=== PATIENT | male | born 1950 | race Caucasian/White ===

== ENCOUNTER 2019-07-23 15:56 | Observation (INO) | payer MEDICARE, OTHER, SELFPAY ==
[2019-07-23] VITALS (14 sets, daily range): BP systolic 135–178; BP diastolic 72–138; PULSE 68–126; RESP 13–30; TEMP 36.3–36.7; O2SAT 99–100; BMI 38.7
--- NOTE | ~2019-07-23 | XR_ITS ---
EXAMINATION: XR chest 2V EXAM DATE: 07/23/2019 16:27 INDICATION: Mid chest pain, shortness of breath, dizziness. TECHNIQUE: Frontal and lateral projections of the chest obtained and reviewed. There is no prior tawana dy for comparison. FINDINGS: Sternotomy wires are present without findings to suggest sternal dehiscence. Cervical fusi on hardware. There are cholecystectomy clips. No confluent consolidation, pneumothorax or pleural ef fusion suspected. There are no osseous abnormalities identified. There is aortic arterial sclerosis. IMPRESSION: No acute cardiopulmonary findings. Reviewed, dictated and finalized at location B. ER RACKER
--- NOTE | 2019-07-23 16:06 | ECG_ITS ---
Measurements Intervals Christine Rate: 103 P: 4 NJ: 177 QRS: -37 QRSD: 105 T: 95 QT: 370 QTc: 486 Interpretive Statements SINUS TACHYCARDIA FREQUENT VENTRICULAR PREMATURE COMPLEXES LEFT AXIS DEVIATION BORDERLINE R WAVE PROGRESSION, ANTERIOR LEADS NONSPECIFIC ST & T-WAVE ABNORMALITY- DIFFUSE LEADS BASELINE ARTIFACT- V1-V2 ABNORMAL ECG Electronically Signed On 07-23-2019 16:40:33 [employer]' by Gagandeep Barrera D.O.
[2019-07-23] MEDS: ASPIRIN 81 MG CHEWABLE TABLET 324 MG PO (16:14)
[2019-07-23 16:16] LABS: Basophils Percent Auto 0.5 % (0.2-1.2); Eosinophils Absolute Auto 0.3 K/mm3 (0-0.3); Eosinophils Percent Auto 3.8 % (0-4.4); Hematocrit 41.4 % (42.0-52.0); Hemoglobin 13.1 g/dL (14.0-18.0); Immature Granulocyte Absolute 0.02 K/mm3 (0.00-0.031); Immature Granulocyte Percent A 0.2 % (0-0.5); Lymphocytes Absolute Auto 3.09 K/mm3 (0.9-3.2); Lymphocytes Percent Auto 37.7 % (18.3-44.2); Mean Corpuscular HGB Conc 31.6 g/dl (32-36); Mean Corpuscular Hemoglobin 29.4 pg (26-34); Mean Corpuscular Volume 92.8 fl (80-100); Mean Platelet Volume 11.9 fl (7.4-10.4); Monocytes Absolute Auto 0.6 K/mm3 (0.1-0.6); Monocytes Percent Auto 7.6 % (2.6-8.5); Neutrophils Absolute Auto 4.1 K/mm3 (1.3-6.7); Neutrophils Percent Auto 50.2 % (45.5-73.1); Platelet Count Result 211 k/mm3 (150-375); Red Blood Count 4.46 M/mm3 (4.6-6.20); Red Cell Distribution Width 13.5 % (11.5-14.5); White Blood Count 8.2 K/mm3 (4.5-10.0)
[2019-07-23 16:30] LABS: Blood Urea Nitrogen 15 mg/dL (9-20); Calcium 9.1 mg/dL (8.4-10.2); Carbon Dioxide 28 mmol/L (22-30); Chloride 97 mmol/L (98-107); Estimated Glomerular Filt Rate > 60; Glucose 253 mg/dL (75-110); Potassium 4.4 mmol/L (3.4-5.0); Sodium 138 mmol/L (137-145)
--- NOTE | 2019-07-23 16:34 | ED.ARRPALP ---
HPI - Arrhythmia/Palpitations General Chief Complaint: Arrhythmia/Palpitations Stated Complaint: dizzy Time Seen by Provider: 07/23/19 16:32 Source: patient, family and RN notes reviewed Mode of arrival: other Limitations: no limitations History of Present Illness HPI narrative: Pt is a 69 y/o male who presents to the ED, from his PCP's office, with c/o arrhythmia. He notes that he felt dizzy and he went to his PCP today. Per pt, PCP states the pt's heart was skipping beats and that his PCP heard an arrhythmia. Pt notes that his dizziness began two weeks ago, but he told his spouse about his sx on Tuesday (07/21/19). Pt describes his dizziness as lightheadedness and the room is spinning. Pt denies syncope or near syncope. Pt notes that he took his HTN medication late on Tuesday (07/21/19). He notes that he wanted to check his blood pressure because he felt strange. He notes that he was feeling something that has not been there. Pt is unable to further describe his sx. He notes that his sx feel similar to whenever he had to have a CABG. Pt also reports intermittent chest pain that began 6 months ago. He notes that his chest pain comes every few days and lasts until he takes a NTG which relieves his chest pain. He notes that his pain feels like a pressure pain. Pt's spouse notes the pt has sporadic N/V/D on Tuesday (07/21/19) which is not abnormal. Pt last seen his lockstitch sleeve maker in February 2019, but he stopped going because the physician would not look him in the eye. Pt's spouse states the pt would see a lockstitch sleeve maker in [facility], but the drive was getting too far for them. Pt also reports CP, SOB, and diaphoresis, but denies vision changes, weakness in his BLE, and numbness in his BLE. complaint: skipped beats Onset (ago): hour(s) Duration: constant Associated symptoms: chest pain, shortness of breath, nausea, vomiting, diaphoresis and other (diarrhea, dizziness, lightheadedness) Related Data Home Medications Medication Instructions Recorded Confirmed atorvastatin 40 mg PO DAILY 05/23/19 07/23/19 duloxetine 60 mg PO DAILY 05/23/19 07/23/19 losartan 100 mg PO DAILY 05/23/19 07/23/19 metformin 1,000 mg PO BID 05/23/19 07/23/19 metoprolol tartrate 75 mg PO DAILY 05/23/19 07/23/19 omeprazole 20 mg PO DAILY 05/23/19 07/23/19 oxybutynin chloride 10 mg PO DAILY 05/23/19 07/23/19 ropinirole 1 mg PO DAILY 05/23/19 07/23/19 tamsulosin 0.4 mg PO DAILY 05/23/19 07/23/19 cholecalciferol (vitamin D3) 5,000 unit PO DAILY 07/23/19 07/23/19 [Vitamin D3] crfksobr-saa-QA-lycopen-lutein 1 tablet PO DAILY 07/23/19 07/23/19 [Centrum Silver Men] omega 4-vgx-myz-fish oil [Fish Oil] 1,000 cap PO DAILY 07/23/19 07/23/19 vitamin B complex [B 1 tablet PO DAILY 07/23/19 07/23/19 Complex-Vitamin B12] Allergies Allergy/AdvReac Type Severity Reaction Status Date / Time amoxicillin Allergy Unknown RASH Verified 07/23/19 16:04 perflutren [From Definity] Allergy Back Pain Verified 07/23/19 16:18 Review of Systems Review of Systems: All systems reviewed & are unremarkable except as noted in HPI and below Eyes: Eyes: Denies change in vision Cardiovascular: Cardiovascular: Reports chest pain (intermittent), Reports diaphoresis, Reports irregular heart rhythm and Reports lightheadedness Respiratory: Respiratory: Reports dyspnea Gastrointestinal: Gastrointestinal: Reports diarrhea, Reports nausea and Reports vomiting Neurologic: Denies numbness (BLE) and Denies weakness (BLE) [facility] Past Medical History Medical History (Updated 07/23/19 @ 17:52 by Patricia Khan MD) Ankle fracture CAD (coronary artery disease) CHF (congestive heart failure) Diabetes type 2, controlled HTN (hypertension) Hyperlipidemia MICA (obstructive sleep apnea) CPAP Surgical History Surgical History (Updated 07/23/19 @ 17:06 by Tosin Langford) History of ankle surgery Hx of CABG x2 vessel, 2013 Hx of cholecystectomy Family History Family History (Updated
[2019-07-23 16:36] LABS: INR 0.9
[2019-07-23 16:37] LABS: Partial Thromboplastin Time 26.9 SECONDS (22.3-36.8); Troponin I < 0.012 ng/mL (0.000-0.034)
[2019-07-23 18:03] LABS: Magnesium 2.1 mg/dL (1.6-2.3)
[2019-07-23 18:05] LABS: Glucose Point of Care 231 (65-105)
[2019-07-23 19:28] LABS: Troponin I < 0.012 ng/mL (0.000-0.034)
--- NOTE | 2019-07-23 19:47 | ADMGEN ---
This patient, Robert Lawler Jr., was admitted to IMU Room 209-01 @ 1856. VSS- monitor SR 80's - denies any c/o pain Patient/family oriented to hospital policies and general routines including ID bracelet, bed and alarms, visiting hours, pain management, procedures, bathroom and other care routines, personal items, smoking policy, room service/diet, and visiting hours. Valuables list has been completed. Information on how to activate the Rapid Response Team has been discussed. Patient/Family are encouraged to report perceived risks to care and to ask questions if they do not understand what they are told or what they should do.
[2019-07-23 20:13] LABS: Glucose Point of Care 161 (65-105)
--- NOTE | 2019-07-23 21:00 | PM.IMHP ---
H&P: HPI History of Present Illness Chief complaint: chest pain Narrative: Robert Lawler Jr. is a 69 year old male with coronary artery disease, hypertension, hyperlipidemia, sleep apnea, and type 2 diabetes mellitus who presented to the emergency department earlier this afternoon via private vehicle for evaluation of dizziness and palpitations. For nearly 2 weeks time he has had intermittent episodes of dizziness, occasionally feeling as though things are spinning but other times he feels lightheaded. He does seem to happen more often with position changes or not long after standing up to walk. He has checked his blood pressure, and has not noticed any low readings, and fact it has been as high as 189/93 at home. He has been having occasional palpitations and will randomly have sweats. With further questioning, he notes an increase in anginal symptoms, using his nitroglycerin much more frequently over the past couple of weeks. His last stress test was in February 2019 done at [facility], apparently that was performed after non STEMI. He followed up with Dr. Riddle but the patient did not feel that they had a good connection, and he does not wish to see him again. He saw his doctor in the clinic today for evaluation of the above, was told that his ?heart was skipping beats? he was referred to the emergency department. Currently he has no significant complaints. He also denies fever, chills, and sweats. No headache. No focal weakness or paresthesias. Review of Systems Review of Systems: Narrative: Twelve systems are reviewed with pertinent positives and negatives as per HPI. No fever or chills. No recent cold or flu symptoms. He has been having intermittent issues with nausea, vomiting, and diarrhea that seemed to last 3 or 4 days at a time before resolving, however the cycle repeats itself quite often. He is followed by Dr. Yeager as an outpatient, and apparently had an unremarkable EGD in May 2019. It sounds as though gastric emptying study has been ordered for further evaluation. Except as documented, all other systems reviewed and are negative. [facility] Past Medical History Medical History (Updated 07/24/19 @ 02:38 by Camila Culp PA-C) Ankle fracture Benign colon polyp Coronary artery disease Status post 2 vessel CABG in 2012. CVA (cerebral vascular accident) Reported CVA in January 2019 for which he was hospitalized at [facility]. Diverticulosis History of shingles Hyperlipidemia Hypertension Obstructive sleep apnea on CPAP Type 2 diabetes mellitus Hemoglobin A1c was 7.5 in May 2019. Surgical History Surgical History (Updated 07/24/19 @ 02:30 by Camila Culp PA-C) History of ankle surgery Status post cholecystectomy Status post coronary artery bypass graft 2 vessel bypass in 2012. Status post tonsillectomy Family History Family History Father Heart attack Mother Cancer Sibling COPD (chronic obstructive pulmonary disease) Heart attack Cancer Social History Social History (Updated 07/24/19 @ 02:30 by Camila Culp PA-C) Social History: The patient lives in [place] with his . He designates his as his surrogate decision maker and he wishes to be a full code. He is a lifelong nonsmoker and denies alcohol and drug use. Spiritual care concerns: No Agree to blood products: Yes Meds Home Medications and Allergies Home Medications Medication Instructions Recorded Confirmed Type atorvastatin 40 mg PO DAILY 05/23/19 07/23/19 History duloxetine 60 mg PO DAILY 05/23/19 07/23/19 History losartan 100 mg PO DAILY 05/23/19 07/23/19 History metformin 1,000 mg PO BID 05/23/19 07/23/19 History metoprolol tartrate 75 mg PO DAILY 05/23/19 07/23/19 History omeprazole 20 mg PO DAILY 05/23/19 07/23/19 History oxybutynin chloride 10 mg PO DAILY 05/23/19 07/23/19 History
[2019-07-23 22:28] LABS: Troponin I < 0.012 ng/mL (0.000-0.034)
[2019-07-24] VITALS (11 sets, daily range): BP systolic 120–175; BP diastolic 50–72; PULSE 66–90; RESP 15–20; TEMP 36.6–36.7; O2SAT 97–99
--- NOTE | 2019-07-24 10:01 | PM.IMPN ---
Progress Note: A&P Assessment and Plan (1) Chest pain: Qualifiers: Chest pain type: unspecified Qualified Code(s): R07.9 - Chest pain, unspecified Code(s): R07.9 - Chest pain, unspecified Status: Acute Assessment and Plan: Discharged. See discharge summary. Trop negative x3 without EKG changes. Follow up with Dr Rocha for outpatient Lexiscan. Subjective Date/time seen: 07/24/19 0930 Interval history: Mr. Lawler is a 69yo M admitted for chest pain. He notes intermittent substernal chest pain on and off, now occurring most days out of the week for the last few weeks. He does feel sweaty with these episodes and a bit short of breath, pain does not radiate to arm or jaw. Pain is resolved with nitroglycerin but he notes if he does not take the nitro, the pain could last all day . He is not having any chest pain this morning and denies shortness of breath at rest. Tolerating breakfast without nausea or vomiting. No calf tenderness. H/O CABG at [place] 2012; followed with Dr Riddle in the past but does not wish to follow with him any longer and wishes to establish care elsewhere. Patient believes last cath was Feb 2019. He saw PCP for his symptoms yesterday who instructed him to present to ER. He is quite concerned about his PVCs and I discussed these with him. Discussed he may be suitable for discharge later today pending cardiology consult unless cardiology plans for further testing inpatient. Objective Data Vital Signs Vital Signs: Vital Signs - 24 hr 07/23/19 16:00 07/23/19 16:04 07/23/19 16:05 Temperature 97.7 F Pulse Rate 108 H 123 H 126 H Respiratory Rate 17 30 H 13 Blood Pressure 150/126 H 154/138 H 150/126 H Pulse Oximetry 100 100 99 07/23/19 16:09 07/23/19 17:15 07/23/19 17:30 Temperature Pulse Rate 101 H 95 88 Respiratory Rate 19 13 14 Blood Pressure 178/87 H Pulse Oximetry 99 99 100 07/23/19 18:01 07/23/19 18:16 07/23/19 18:30 Temperature Pulse Rate 83 83 93 Respiratory Rate 21 H 13 21 H Blood Pressure 145/92 H 156/72 H 156/72 H Pulse Oximetry 100 100 100 07/23/19 19:00 07/23/19 19:40 07/23/19 20:00 Temperature 97.3 F L Pulse Rate 99 99 88 Respiratory Rate 20 Blood Pressure 152/76 H Pulse Oximetry 100 07/23/19 22:00 07/23/19 23:55 07/24/19 00:00 Temperature 98.0 F Pulse Rate 68 87 79 Respiratory Rate 20 Blood Pressure 135/73 Pulse Oximetry 99 07/24/19 01:30 07/24/19 02:00 07/24/19 04:00 Temperature 98.0 F Pulse Rate 88 79 84 Respiratory Rate 15 20 Blood Pressure 120/50 L Pulse Oximetry 97 97 07/24/19 06:00 07/24/19 07:03 Temperature 98.0 F Pulse Rate 66 76 Respiratory Rate 18 Blood Pressure 146/65 H Pulse Oximetry 99 Intake/Output Intake/Output: Intake & Output 07/21/19 07/22/19 07/23/19 07/24/19 23:59 23:59 23:59 23:59 Intake Total 300 Balance 300 Meds/Results Medications: Active Medications Generic Name Dose Route Start Last Admin Trade Name Freq PRN Reason Stop Dose Admin Aspirin 81 mg 07/24/19 08:00 Aspirin Chewable PO DAILY@0800 [facility] Atorvastatin Calcium 40 mg 07/24/19 09:00 Lipitor PO DAILY [facility] Dextrose 12.5 gm 07/24/19 02:40 Dextrose 50% Syringe IV PUSH PRN PRN Hypoglycemia Protocol Duloxetine HCl 60 mg 07/24/19 09:00 Cymbalta PO DAILY [facility] Fish Oil 1 gm 07/24/19 09:00 Lovaza PO DAILY [facility] Glucagon 1 mg 07/24/19 02:40 Glucagon For Inj IM PRN PRN Hypoglycemia Protocol Glucose 15 gm 07/24/19 02:40 Glutose 15 PO PRN PRN Hypoglycemia Protocol Dextrose 1,000 mls @ 100 mls/hr 07/24/19 02:40 Dextrose 5% 1,000 Ml IVPB PRN PRN Hypoglycemia Protocol Insulin Aspart 4 - 8 units 07/24/19 08:00 Novolog SUB-Q TIDWM [facility] Protocol Losartan Potassium 100 mg 07/24/19 09:00 Cozaar PO DAILY [facility] Metoprolol Tartrate 75 mg
[2019-07-24] MEDS: VITAMIN B COMPLEX CAPSULE 1 CAP PO (10:25)
[2019-07-24] MEDS: ASPIRIN 81 MG CHEWABLE TABLET PO (10:25)
[2019-07-24] MEDS: METOPROLOL TARTRATE 25 MG TABLET 75 MG PO (10:25)
[2019-07-24] MEDS: CHOLECALCIFEROL 1,000 UNIT TABLET 5000 UNITS PO (10:25)
[2019-07-24] MEDS: DULOXETINE 60 MG CAPSULE.DR PO (10:25)
[2019-07-24] MEDS: LOSARTAN POTASSIUM 100 MG TABLET PO (10:26)
[2019-07-24] MEDS: PANTOPRAZOLE 40 MG TABLET PO (10:26)
[2019-07-24] MEDS: OMEGA 3 POLYUNSAT FATTY ACIDS 1 GM CAP PO (10:26)
[2019-07-24] MEDS: TAMSULOSIN HCL 0.4 MG CAPSULE PO (10:26)
[2019-07-24] MEDS: ATORVASTATIN 20 MG TABLET 40 MG PO (10:27)
[2019-07-24] MEDS: INSULIN ASPART (*BKC) 100 UNITS/ML SUB-Q (10:33)
[2019-07-24 10:40] LABS: Glucose Point of Care 283 (65-105)
[2019-07-24] MEDS: OPTI-GEN TAB 1 TABLET PO (12:54)
--- NOTE | 2019-07-24 14:04 | PM.CNCAR ---
Assessment and Plan Assessment and plan (1) Chest pain: Qualifiers: Chest pain type: unspecified Qualified Code(s): R07.9 - Chest pain, unspecified Code(s): R07.9 - Chest pain, unspecified Status: Acute Assessment and Plan: Stable angina resolved with nitroglycerin prior to admission. Ruled out for myocardial infarction with serial cardiac enzymes without new ischemic changes by EKG. History of CAD 2 vessel bypass FLORIAN to LAD and left radial arterial graft to PDA 2012. Discussed inpatient versus outpatient ischemic evaluation. Patient prefers to be discharged home to follow up with the Lexiscan nuclear stress test soon. Patient will follow up with me in the office in 2-4 weeks. Will add isosorbide mononitrate 30 mg daily for additional antianginal control. Monitor headache, dizziness, blood pressure. Ambulate with caution. Notify office with any concerns or questions. Patient stable and asymptomatic at this time. Disposition per hospitalist service. Should he have recurrent chest pain prior to discharge he will remain in-house for ischemic workup. Patient agrees. (2) Coronary artery disease: Code(s): I25.10 - Atherosclerotic heart disease of [place] coronary artery without angina pectoris Status: Acute Assessment and Plan: Continue aspirin, statin, beta kash, losartan. LDL 62 reasonably controlled. Further ischemic workup as outpatient with Lexiscan. Patient advised if recurrent unrelenting and/or severe chest pain to return to the emergency department via EMS immediately. Patient verbalized understanding and agreed to comply with plan of care. He would like to be discharged home to follow up as an outpatient although inpatient workup was offered as well. (3) PVCs (premature ventricular contractions): Code(s): I49.3 - Ventricular premature depolarization Status: Acute Assessment and Plan: Occasional, asymptomatic since hospitalization. Increase metoprolol tartrate to 75 mg b.i.d. as he was only taking this in the evening. Denies any problem in the past states he did abdoulaye as directed. We will do this not only for PVCs but predominantly for antianginal benefit. (4) Palpitations: Code(s): R00.2 - Palpitations Status: Acute Assessment and Plan: As above. (5) Type 2 diabetes mellitus: Code(s): E11.9 - Type 2 diabetes mellitus without complications Status: Acute Assessment and Plan: Per primary service. (6) Hypertension: Code(s): I10 - Essential (primary) hypertension Status: Acute Assessment and Plan: Reasonably controlled. Changes as above. Continue medical therapy aside from that noted above. (7) Obstructive sleep apnea on CPAP: Code(s): G47.33 - Obstructive sleep apnea (adult) (pediatric); Z99.89 - Dependence on other enabling machines and devices Status: Acute Assessment and Plan: Compliance with CPAP. (8) Dizziness: Code(s): R42 - Dizziness and giddiness Status: Acute Assessment and Plan: Monitor symptoms and ambulate with caution. Call w/ recurrence or new concerns. No history of near-syncope, syncope or falls. History of Present Illness History of Present Illness Consult date/time: Date of service: 07/24/19 14:04 This is a cardiology consultation at the request of Dr. Lucio for our opinion regarding progressive angina with history of CAD. Requesting physician: Nguyen Mtz MD Consult reason: chest pain Reason For Visit: chest pain Narrative: Patient is a very pleasant 69-year-old male with a past medical history significant for hypertension, diabetes mellitus, dyslipidemia, obesity, obstructive sleep apnea on CPAP, and CAD with history of severe 2 vessel coronary disease with 95% RCA stenosis, moderate left main disease and 65% sequential lesions in the LAD who underwent 2 vessel CABG with FLORIAN to LAD and left radial arterial gra
[2019-07-24 14:51] LABS: Glucose Point of Care 213 (65-105)
--- NOTE | 2019-07-24 19:22 | PM.DS ---
DS: Diagnosis Admitting Diagnosis Admitting Diagnosis: Chest pain, unspecified Discharge Diagnosis (1) Chest pain: Qualifiers: Chest pain type: unspecified Qualified Code(s): R07.9 - Chest pain, unspecified Code(s): R07.9 - Chest pain, unspecified Status: Acute Assessment and Plan: Date of Service 07/24/19 Mr. Lawler is a 69yo M with history of coronary artery disease s/p CABG in 2012, hypertension, and type 2 diabetes mellitus who presented to the ED at the instruction of his PCP for evaluation of chest pain. He notes intermittent substernal chest pain on and off, now occurring most days out of the week for the last few weeks. He does feel sweaty with these episodes and a bit short of breath, pain does not radiate to arm or jaw. Pain is resolved with nitroglycerin but he notes if he does not take the nitro, the pain could last all day . Troponins negative x3 with no EKG changes. He was not having any active chest pain on day of discharge. Telemetry review showed occasional PVCs. H/O CABG at [place] 2012; followed with Dr Riddle in the past but does not wish to follow with him any longer and wishes to establish care elsewhere. Patient believes last cath was Feb 2019. He saw PCP for his symptoms yesterday who instructed him to present to ER. Cardiology was consulted given his ongoing anginal symptoms and he was seen by Dr Rocha. It was felt he could benefit from Lexiscan stress testing which could be done as an outpatient. He was also started on Imdur. He was instructed to continue taking his nitroglycerin as needed and instructed return to the ER if he experienced chest pain not relieved by nitro. He was provided with a follow up appointment for cardiology in addition to a scheduled outpatient Lexiscan. He was feeling well and hemodynamically stable for discharge 07/24/19 with cardiology follow up instructions and instructed to follow up with PCP as well. Consultations: Cardiology, Dr Rocha (2) PVCs (premature ventricular contractions): Code(s): I49.3 - Ventricular premature depolarization Status: Acute Assessment and Plan: Noted on telemetry, patient does report palpitations. (3) Coronary artery disease: Qualifiers: Coronary Disease-Associated Artery/Lesion type: bypass graft [place] vs. transplanted heart: [place] heart Associated angina: with unspecified angina Qualified Code(s): I25.709 - Atherosclerosis of coronary artery bypass graft(s), unspecified, with unspecified angina pectoris Code(s): I25.10 - Atherosclerotic heart disease of [place] coronary artery without angina pectoris Status: Acute Assessment and Plan: h/o CABG 2012 and last heart cath he believes in Feb [address] Riddle. He wishes to establish care with [facility] and he will follow up with Dr Rocha in a few weeks. (4) Type 2 diabetes mellitus: Qualifiers: Diabetes mellitus detention insulin use: without detention use Diabetes mellitus complication status: without complication Qualified Code(s): E11.9 - Type 2 diabetes mellitus without complications Code(s): E11.9 - Type 2 diabetes mellitus without complications Status: Acute Assessment and Plan: Stable, resume home metformin at discharge. (5) Hypertension: Qualifiers: Hypertension type: essential hypertension Qualified Code(s): I10 - Essential (primary) hypertension Code(s): I10 - Essential (primary) hypertension Status: Acute Assessment and Plan: Maintained on home losartan and coreg. (6) Obstructive sleep apnea on CPAP: Code(s): G47.33 - Obstructive sleep apnea (adult) (pediatric); Z99.89 - Dependence on other enabling machines and devices Status: Acute DS: Summary Time Spent with Patient Time attestation: Total time spent pr
== END 2019-07-24 19:35 | disposition home or self-care (01) ==
LOC: ANHED 17:25 → ANHIMU 17:33
PROVIDERS: Emergency Medicine; Physician Assistant; Admitting Provider Internal Medicine; Emergency Provider Emergency Medicine; Visit Provider Internal Medicine
DX: R07.9 Chest pain, unspecified (principal); I49.3 Ventricular premature depolarization; I25.709 Atherosclerosis of coronary artery bypass graft(s), unspecified, with unspecified angina pectoris; I10 Essential (primary) hypertension; E11.9 Type 2 diabetes mellitus without complications; E78.5 Hyperlipidemia, unspecified; G47.33 Obstructive sleep apnea (adult) (pediatric); Z79.84 Long term (current) use of oral hypoglycemic drugs; Z79.899 Other long term (current) drug therapy; Z86.73 Personal history of transient ischemic attack (TIA), and cerebral infarction without residual deficits; Z95.1 Presence of aortocoronary bypass graft; Z99.89 Dependence on other enabling machines and devices
CPT/HCPCS: 36415; 71046; 80048; 82948; 83735; 84443; 84484; 85025; 85610; 85730; 93005; 99285; A9270; G0378; J1815

== ENCOUNTER 2019-07-27 09:56 | Outpatient (CLI) | payer MEDICARE, OTHER, SELFPAY ==
[2019-07-27 10:55] LABS: Basophils Absolute Auto 0.1 K/mm3 (0.0-0.1); Basophils Percent Auto 0.6 % (0.2-1.2); Eosinophils Absolute Auto 0.6 K/mm3 (0-0.3); Eosinophils Percent Auto 7.1 % (0-4.4); Hematocrit 41.6 % (42.0-52.0); Hemoglobin 13.1 g/dL (14.0-18.0); Immature Granulocyte Absolute 0.03 K/mm3 (0.00-0.031); Immature Granulocyte Percent A 0.3 % (0-0.5); Lymphocytes Absolute Auto 3.63 K/mm3 (0.9-3.2); Lymphocytes Percent Auto 40.9 % (18.3-44.2); Mean Corpuscular HGB Conc 31.5 g/dl (32-36); Monocytes Absolute Auto 0.6 K/mm3 (0.1-0.6); Monocytes Percent Auto 7.2 % (2.6-8.5); Neutrophils Absolute Auto 3.9 K/mm3 (1.3-6.7); Neutrophils Percent Auto 43.9 % (45.5-73.1); Platelet Count Result 198 k/mm3 (150-375); Red Blood Count 4.52 M/mm3 (4.6-6.20); Red Cell Distribution Width 13.5 % (11.5-14.5); White Blood Count 8.9 K/mm3 (4.5-10.0)
[2019-07-27 11:05] LABS: INR 0.9; Prothrombin Time 12.1 Seconds (11.1-14.7)
[2019-07-27 11:44] LABS: Blood Urea Nitrogen 19 mg/dL (9-20); Calcium 9.4 mg/dL (8.4-10.2); Carbon Dioxide 27 mmol/L (22-30); Chloride 98 mmol/L (98-107); Estimated Glomerular Filt Rate > 60; Glucose 184 mg/dL (75-110); Potassium 4.6 mmol/L (3.4-5.0); Sodium 139 mmol/L (137-145)
== END 2019-07-27 09:57 | disposition home or self-care (01) ==
DX: E66.9 Obesity, unspecified (principal); E78.5 Hyperlipidemia, unspecified; I10 Essential (primary) hypertension; I20.0 Unstable angina; Z95.1 Presence of aortocoronary bypass graft
CPT/HCPCS: 36415; 80048; 85025; 85610

== ENCOUNTER 2019-08-09 07:36 | Outpatient (CLI) | payer MEDICARE, OTHER, SELFPAY ==
--- NOTE | ~2019-08-09 | NM_ITS ---
EXAM: NM gastric emptying study DATE: 08/09/2019 14:37 INDICATION: Nausea and vomiting. TECHNIQUE: A gastric emptying study was performed using the methodology of Shanon ORDOÑEZ, et al. J Nucl Med 2007; 48:568-572. The patient was given a meal consisting of 2 scrambled eggs labeled with 0.972 mCi Tc-99m sulfur colloid, 2 slices of toast, two packages of jam, and approximately 120 mL of water . Simultaneous anterior and posterior 1-min images of the abdomen were obtained with the patient supi ne at multiple time points over a total period of 4 hours. The geometric mean of anterior and posteri or views was determined, and the percentage retention was calculated for each time point. COMPARISON: CT abdomen and pelvis 06/30/2015 FINDINGS: Gastric retention of the radiotracer-labeled meal was 65%, 34%, and 9% at the 1-hour, 2-ho ur, and 4-hour time points, respectively. With this technique, apparent rapid gastric emptying is sug gested by <30% gastric retention at 1 hour. Delayed gastric emptying is defined by gastric retention of >90% at 1 hour, >60% retention at 2 hours, or >10% retention at 4 hours. IMPRESSION: 1. Normal gastric emptying. Reviewed, dictated and finalized at location A. INE STONECUTTER IMPRESSION: 1. Normal gastric emptying.
== END 2019-08-09 07:37 | disposition home or self-care (01) ==
LOC: ANHIMG 07:38
PROVIDERS: Visit Provider Internal Medicine Gastroenterology
DX: R11.2 Nausea with vomiting, unspecified (principal)
CPT/HCPCS: 78264; A9541

== ENCOUNTER 2020-04-25 09:19 | Outpatient (CLI) | payer MEDICARE, OTHER, SELFPAY ==
[2020-04-25 10:20] LABS: Alanine Aminotransferase 21 U/L (4-50); Albumin Level 3.7 g/dL (3.5-5.1); Alkaline Phosphatase 111 U/L (38-126); Anion Gap 3 mmol/L (8-16); Aspartate Amino Transferase 28 U/L (17-59); Bilirubin,Total 0.3 mg/dL (0.2-1.3); Blood Urea Nitrogen 13 mg/dL (9-20); Calcium 8.7 mg/dL (8.4-10.2); Carbon Dioxide 34 mmol/L (22-30); Chloride 102 mmol/L (98-107); Cholesterol 87 mg/dL (0-200); Creatine Kinase 64 U/L (55-170); Estimated Glomerular Filt Rate > 60; Glucose 166 mg/dL (75-110); HDL Direct 21 mg/dL; Magnesium 2.2 mg/dL (1.6-2.3); Potassium 4.5 mmol/L (3.4-5.0); Sodium 139 mmol/L (137-145); Triglycerides 93 mg/dL (<150)
[2020-04-25 10:31] LABS: LDL Cholesterol Direct 45 mg/dL
== END 2020-04-25 09:20 | disposition home or self-care (01) ==
PROVIDERS: PCP Family Medicine Sports Medicine; Visit Provider Internal Medicine Cardiovascular Disease
DX: I25.10 Atherosclerotic heart disease of native coronary artery without angina pectoris (principal); R00.2 Palpitations
CPT/HCPCS: 36415; 80053; 80061; 82550; 83735

== ENCOUNTER 2020-05-21 12:10 | Outpatient (CLI) | payer MEDICARE, OTHER, SELFPAY ==
[2020-05-21 13:14] LABS: Anion Gap 6 mmol/L (8-16); Blood Urea Nitrogen 15 mg/dL (9-20); Calcium 9.1 mg/dL (8.4-10.2); Carbon Dioxide 32 mmol/L (22-30); Chloride 100 mmol/L (98-107); Estimated Glomerular Filt Rate > 60; Glucose 146 mg/dL (75-110); Magnesium 2.1 mg/dL (1.6-2.3); Potassium 4.2 mmol/L (3.4-5.0); Sodium 138 mmol/L (137-145)
== END 2020-05-21 12:11 | disposition home or self-care (01) ==
LOC: ANHLAB 12:14
PROVIDERS: PCP Family Medicine Sports Medicine; Visit Provider Internal Medicine Cardiovascular Disease
DX: I10 Essential (primary) hypertension (principal); I25.10 Atherosclerotic heart disease of native coronary artery without angina pectoris; I49.3 Ventricular premature depolarization
CPT/HCPCS: 36415; 80048; 83735

== ENCOUNTER 2020-06-30 09:33 | Outpatient (CLI) | payer MEDICARE, OTHER, SELFPAY ==
[2020-06-30 10:01] LABS: Anion Gap 6 mmol/L (8-16); Blood Urea Nitrogen 15 mg/dL (9-20); Calcium 9.2 mg/dL (8.4-10.2); Carbon Dioxide 31 mmol/L (22-30); Chloride 100 mmol/L (98-107); Estimated Glomerular Filt Rate > 60; Glucose 186 mg/dL (75-110); Magnesium 1.7 mg/dL (1.6-2.3); Potassium 4.2 mmol/L (3.4-5.0); Sodium 137 mmol/L (137-145)
[2020-06-30 11:05] LABS: Alanine Aminotransferase 19 U/L (4-50); Albumin Level 4.1 g/dL (3.5-5.1); Alkaline Phosphatase 123 U/L (38-126); Aspartate Amino Transferase 25 U/L (17-59); Bilirubin,Total 0.5 mg/dL (0.2-1.3); CRP 1.2 mg/dL (<1.0)
[2020-06-30 11:25] LABS: Thyroid Stimulating Hormone 0.993 uIU/mL (0.465-4.680)
== END 2020-06-30 09:34 | disposition home or self-care (01) ==
PROVIDERS: PCP Family Medicine Sports Medicine; Visit Provider Family Medicine Sports Medicine
DX: R11.0 Nausea (principal); R19.7 Diarrhea, unspecified; R10.11 Right upper quadrant pain
CPT/HCPCS: 36415; 80048; 80053; 83735; 84443; 86140

== ENCOUNTER 2020-07-18 08:35 | Outpatient (CLI) | payer MEDICARE, OTHER, SELFPAY ==
--- NOTE | ~2020-07-18 | XR_ITS ---
XR UGIAC w small bowel DATE: 07/18/2020 12:24 INDICATION: Chronic vomiting TECHNIQUE: Air-contrast upper gastrointestinal series; serial images of the small bowel and spot imag e of the terminal ileum 1.8 minutes fluoroscopy time DAP: 229.032 COMPARISON: None FINDINGS: Status post cholecystectomy. Status post sternotomy/CABG. There is normal deglutition. There are tertiary contractions of the esophagus. There is a small sliding hiatal hernia. No stricture, mucosal fold thickening, ulceration or intraluminal mass lesion of the esophagus, stoma ch or duodenum is evident. The small bowel mucosal pattern appears normal. Normal terminal ileum. IMPRESSION: Status post cholecystectomy. 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 Status post sternotomy/CABG Reviewed, dictated and finalized at [facility]. Reviewed, dictated and finalized at location [facility]. [facility] CARPENTER
== END 2020-07-18 08:36 | disposition home or self-care (01) ==
PROVIDERS: PCP Family Medicine Sports Medicine; Visit Provider Internal Medicine Gastroenterology
DX: R11.10 Vomiting, unspecified (principal); Z90.49 Acquired absence of other specified parts of digestive tract; K44.9 Diaphragmatic hernia without obstruction or gangrene
CPT/HCPCS: 74246; 74248

== ENCOUNTER 2020-08-06 07:20 | Outpatient (CLI) | payer MEDICARE, OTHER, SELFPAY ==
[2020-08-06 08:01] LABS: Hematocrit 38.8 % (42.0-52.0); Hemoglobin 12.8 g/dL (14.0-18.0); Mean Corpuscular Hemoglobin 30.2 pg (26-34); Mean Corpuscular Volume 91.5 fl (80-100); Mean Platelet Volume 11.3 fl (7.4-10.4); Platelet Count Result 154 k/mm3 (150-375); Red Blood Count 4.24 M/mm3 (4.6-6.20); Red Cell Distribution Width 12.9 % (11.5-14.5); White Blood Count 7.4 K/mm3 (4.5-10.0)
[2020-08-06 08:20] LABS: Potassium 4.3 mmol/L (3.4-5.0)
[2020-08-06 08:24] LABS: Alanine Aminotransferase 25 U/L (4-50); Albumin Level 3.6 g/dL (3.5-5.1); Alkaline Phosphatase 141 U/L (38-126); Anion Gap 6 mmol/L (8-16); Aspartate Amino Transferase 25 U/L (17-59); Bilirubin,Total 0.4 mg/dL (0.2-1.3); Blood Urea Nitrogen 16 mg/dL (9-20); Calcium 8.9 mg/dL (8.4-10.2); Carbon Dioxide 30 mmol/L (22-30); Chloride 102 mmol/L (98-107); Cholesterol 105 mg/dL (0-200); Estimated Glomerular Filt Rate 60; Glucose 283 mg/dL (75-110); HDL Direct 30 mg/dL; Sodium 138 mmol/L (137-145); Triglycerides 148 mg/dL (<150)
[2020-08-06 08:31] LABS: LDL Cholesterol Direct 56 mg/dL
[2020-08-06 08:49] LABS: Thyroid Stimulating Hormone 0.558 uIU/mL (0.465-4.680)
[2020-08-06 09:04] LABS: Hemoglobin A1C 8.6 % (<5.7)
== END 2020-08-06 07:21 | disposition home or self-care (01) ==
PROVIDERS: PCP Family Medicine Sports Medicine; Referring Provider Internal Medicine Cardiovascular Disease; Visit Provider Family Medicine Sports Medicine
DX: E11.9 Type 2 diabetes mellitus without complications (principal); I10 Essential (primary) hypertension
CPT/HCPCS: 36415; 80053; 80061; 83036; 83735; 84443; 85027

== ENCOUNTER 2020-10-23 09:49 | Outpatient (CLI) | payer MEDICARE, OTHER, SELFPAY ==
[2020-10-23 10:52] LABS: LDL Cholesterol Direct 65 mg/dL
[2020-10-23 11:06] LABS: Alanine Aminotransferase 26 U/L (4-50); Cholesterol 126 mg/dL (0-200); HDL Direct 31 mg/dL; Triglycerides 215 mg/dL (<150)
[2020-10-23 11:13] LABS: Creatine Kinase 64 U/L (55-170)
== END 2020-10-23 09:50 | disposition home or self-care (01) ==
PROVIDERS: PCP Family Medicine Sports Medicine; Visit Provider Internal Medicine Cardiovascular Disease
DX: E78.5 Hyperlipidemia, unspecified (principal)
CPT/HCPCS: 36415; 80061; 82550; 84460

== ENCOUNTER 2021-08-25 08:36 | Outpatient (CLI) | payer MEDICARE, OTHER, SELFPAY ==
[2021-08-25 09:14] LABS: Anion Gap 7 mmol/L (8-16); Blood Urea Nitrogen 11 mg/dL (9-20); Calcium 8.3 mg/dL (8.4-10.2); Carbon Dioxide 28 mmol/L (22-30); Chloride 103 mmol/L (98-107); Estimated Glomerular Filt Rate 59; Glucose 209 mg/dL (65-110); Potassium 4.5 mmol/L (3.4-5.0); Sodium 138 mmol/L (137-145)
[2021-08-25 09:22] LABS: NT Pro B Type Natriuretic Pept 281 pg/mL (5-100)
== END 2021-08-25 08:37 | disposition home or self-care (01) ==
PROVIDERS: PCP Family Medicine Sports Medicine; Visit Provider Internal Medicine Cardiovascular Disease
DX: I10 Essential (primary) hypertension (principal); R06.02 Shortness of breath; R93.1 Abnormal findings on diagnostic imaging of heart and coronary circulation
CPT/HCPCS: 36415; 80048; 83880

== ENCOUNTER 2021-10-02 08:17 | Outpatient (CLI) | payer MEDICARE, OTHER, SELFPAY ==
[2021-10-02 09:10] LABS: Anion Gap 7 mmol/L (8-16); Blood Urea Nitrogen 14 mg/dL (9-20); Calcium 8.5 mg/dL (8.4-10.2); Carbon Dioxide 29 mmol/L (22-30); Chloride 101 mmol/L (98-107); Cholesterol 101 mg/dL (0-200); Estimated Glomerular Filt Rate > 60; Glucose 216 mg/dL (65-110); HDL Direct 26 mg/dL; Potassium 4.3 mmol/L (3.4-5.0); Sodium 137 mmol/L (137-145); Triglycerides 206 mg/dL (<150)
[2021-10-02 09:20] LABS: LDL Cholesterol Direct 44 mg/dL
== END 2021-10-02 08:18 | disposition home or self-care (01) ==
PROVIDERS: PCP Family Medicine Sports Medicine
DX: E78.5 Hyperlipidemia, unspecified (principal); I10 Essential (primary) hypertension; I49.3 Ventricular premature depolarization; I50.20 Unspecified systolic (congestive) heart failure
CPT/HCPCS: 36415; 80048; 80061

== ENCOUNTER 2022-06-21 11:27 | Outpatient (CLI) | payer MEDICARE, OTHER, SELFPAY ==
[2022-06-21 12:05] LABS: Basophils Absolute Auto 0.1 K/mm3 (0.0-0.1); Basophils Percent Auto 0.7 % (0.2-1.2); Eosinophils Absolute Auto 0.2 K/mm3 (0-0.3); Eosinophils Percent Auto 2.5 % (0-4.4); Hematocrit 39.9 % (42.0-52.0); Hemoglobin 12.9 g/dL (14.0-18.0); Immature Granulocyte Absolute 0.02 K/mm3 (0.00-0.031); Immature Granulocyte Percent A 0.2 % (0-0.5); Lymphocytes Absolute Auto 4.11 K/mm3 (0.9-3.2); Lymphocytes Percent Auto 45.8 % (18.3-44.2); Mean Corpuscular HGB Conc 32.3 g/dl (32-36); Mean Corpuscular Hemoglobin 30.9 pg (26-34); Mean Corpuscular Volume 95.7 fl (80-100); Mean Platelet Volume 10.7 fl (7.4-10.4); Monocytes Absolute Auto 0.7 K/mm3 (0.1-0.6); Monocytes Percent Auto 7.4 % (2.6-8.5); Neutrophils Absolute Auto 3.9 K/mm3 (1.3-6.7); Neutrophils Percent Auto 43.4 % (45.5-73.1); Platelet Count Result 190 k/mm3 (150-375); Red Blood Count 4.17 M/mm3 (4.6-6.20); Red Cell Distribution Width 13.3 % (11.5-14.5)
[2022-06-21 12:17] LABS: Anion Gap 5 mmol/L (8-16); Blood Urea Nitrogen 17 mg/dL (9-20); Calcium 8.4 mg/dL (8.4-10.2); Carbon Dioxide 28 mmol/L (22-30); Chloride 100 mmol/L (98-107); Estimated Glomerular Filt Rate > 60; Glucose 118 mg/dL (65-110); INR 0.9; Potassium 4.4 mmol/L (3.4-5.0); Prothrombin Time 12.1 Seconds (11.1-14.7); Sodium 133 mmol/L (137-145)
[2022-06-21 12:40] LABS: SARS-CoV-2 RNA PCR Positive
== END 2022-06-21 11:28 | disposition home or self-care (01) ==
PROVIDERS: PCP Family Medicine Sports Medicine
DX: I49.3 Ventricular premature depolarization (principal); I50.22 Chronic systolic (congestive) heart failure; U07.1 COVID-19
CPT/HCPCS: 36415; 80048; 85025; 85610; U0003; U0005

== ENCOUNTER 2022-09-02 07:29 | Outpatient (CLI) | payer MEDICARE, OTHER, SELFPAY ==
[2022-09-02 08:39] LABS: Alanine Aminotransferase 19 U/L (6-50); Alkaline Phosphatase 105 U/L (38-126); Anion Gap 5 mmol/L (8-16); Aspartate Amino Transferase 23 U/L (17-59); Bilirubin,Total 0.4 mg/dL (0.2-1.3); Blood Urea Nitrogen 16 mg/dL (9-20); Carbon Dioxide 28 mmol/L (22-30); Chloride 104 mmol/L (98-107); Cholesterol 131 mg/dL (0-200); Estimated Glomerular Filt Rate > 60; Glucose 159 mg/dL (65-110); HDL Direct 27 mg/dL; Magnesium 1.9 mg/dL (1.6-2.3); Potassium 4.3 mmol/L (3.4-5.0); Sodium 137 mmol/L (137-145); Triglycerides 251 mg/dL (<150)
[2022-09-02 08:51] LABS: LDL Cholesterol Direct 71 mg/dL
[2022-09-02 09:18] LABS: Thyroid Stimulating Hormone Reflex 0.847 uIU/mL (0.465-4.68)
[2022-09-02 12:11] LABS: NT Pro B Type Natriuretic Pept 163 pg/mL (19.9-100)
== END 2022-09-02 07:30 | disposition home or self-care (01) ==
PROVIDERS: PCP Family Medicine Sports Medicine; Visit Provider Internal Medicine Cardiovascular Disease
DX: E78.5 Hyperlipidemia, unspecified (principal); I25.10 Atherosclerotic heart disease of native coronary artery without angina pectoris; I42.9 Cardiomyopathy, unspecified; I49.3 Ventricular premature depolarization; Z95.5 Presence of coronary angioplasty implant and graft; Z98.890 Other specified postprocedural states; I10 Essential (primary) hypertension; I50.9 Heart failure, unspecified
CPT/HCPCS: 36415; 80053; 80061; 83735; 83880; 84443

== ENCOUNTER 2023-01-26 07:23 | Outpatient (CLI) | payer MEDICARE, OTHER, SELFPAY ==
--- NOTE | ~2023-01-26 | CT_ITS ---
EXAMINATION: CT abdomen pelvis wo/w con DATE: 01/26/2023 08:10 INDICATION: Gross hematuria. TECHNIQUE: Computed tomography (CT) of the abdomen and pelvis was performed without and with intraven ous contrast using a total of 130 mL Omnipaque-350 intravenous contrast with a double-bolus technique for simultaneous opacification of the renal parenchyma and renal collecting system. Automated exposu re control and iterative reconstruction technique were employed. The dose-length product was 3192.18 mGy-cm. COMPARISON: CT abdomen and pelvis 06/30/2015 FINDINGS: The visualized portions of the lung bases demonstrate mild atelectasis. No pleural effusion. The hear t size is normal. There are coronary artery calcifications. There are changes of coronary bypass herlinda ting. No pericardial effusion. There are cysts in the liver measuring up to 3.7 cm. There are changes of cholecystectomy. The spleen, pancreas, adrenal glands, and left kidney are normal. There are two 2 mm stones in right kidney. There are cysts in right kidney measuring up to 2.1 cm. The ureters are well opacified and are normal. There is a 1.8 cm mass in the bladder on the left posteriorly. There a re brachytherapy seeds in the prostate. The prostate is mildly enlarged. There is diverticulosis of t he colon without evidence of diverticulitis. There are no dilated loops of bowel. The appendix is nor mal. There is calcified atherosclerosis of the aorta and many of the other arteries. There are no pat hologically enlarged lymph nodes. There is no ascites. There is mild lumbar spondylosis and severe th oracic spondylosis. IMPRESSION: 1. 1.8 cm mass in the bladder on the left posteriorly suspicious for urothelial carcinoma. 2. Small nonobstructing right kidney stones. Reviewed, dictated and finalized at location A.
[2023-01-26 07:51] LABS: Estimated Glomerular Filt Rate 54
== END 2023-01-26 07:24 | disposition home or self-care (01) ==
PROVIDERS: PCP Family Medicine Sports Medicine; Visit Provider Urology
DX: R31.0 Gross hematuria (principal); N20.0 Calculus of kidney
CPT/HCPCS: 74178; Q9967

== ENCOUNTER 2023-02-25 11:00 | Outpatient (CLI) | payer MEDICARE, OTHER, SELFPAY ==
[2023-02-25 11:44] LABS: Anion Gap 7 mmol/L (8-16); Blood Urea Nitrogen 15 mg/dL (9-20); Calcium 8.8 mg/dL (8.4-10.2); Carbon Dioxide 26 mmol/L (22-30); Chloride 102 mmol/L (98-107); Estimated Glomerular Filt Rate > 60; Glucose 137 mg/dL (65-110); Potassium 4.7 mmol/L (3.4-5.0); Sodium 135 mmol/L (137-145)
== END 2023-02-25 11:01 | disposition home or self-care (01) ==
LOC: ANHSURGERY 11:06
PROVIDERS: Anesthesiology; PCP Family Medicine Sports Medicine; Visit Provider Urology
DX: E11.9 Type 2 diabetes mellitus without complications (principal); Z01.818 Encounter for other preprocedural examination
CPT/HCPCS: 36415; 80048

== ENCOUNTER 2023-03-03 01:18 | Day surgery (SDC) | payer MEDICARE, OTHER, SELFPAY ==
--- NOTE | 2023-02-24 10:56 | PC.NURSE ---
Report to the Outpatient Waiting Room, entrance under the green pavilion located off [facility], at time _0600 on date __03/03/23 . Planned Procedure Time: _0730 . Time changes happen often and if your time is changed the preop area will call you the afternoon before. - You and your visitor will be asked to self-screen and do not enter if you have any COVID symptoms. - A mask is optional within the hospital at this time. Patients may have clear liquids (water, carbonated beverages, clear teas, apple juice) until 3 hours prior to surgery with a maximum of 20 ounces. - No food from midnight until time of surgery - Infants may have breast milk until 4 hours before surgery, infant formula 6 hours prior to surgery. - Children will be allowed to drink immediately following surgery. If applicable, please bring a bottle or sippy cup to assist with drinking. Juice, water, soda, and popsicles are readily available. For infants on formula, please bring formula the day of surgery. Pacifiers are allowed. Take the following medications with a SIP of water the morning of surgery: ___NONE DO NOT STOP ANY OF YOUR OTHER PRESCRIPTION MEDICATIONS PRIOR TO SURGERY ?EXCEPT THE FOLLOWING Medications to discontinue per physician __PT STATES ASPIRIN AND PLAVIX LAST DOSE 02/22/23. HOLD ALL VITAMINS AND SUPPLEMENTS 3 DAYS PRE OP.LAST DOSE 02/27/23 Please no make-up, nail belgian, hairspray, perfume, deodorant, or body powder the day of surgery. No jewelry (including any body piercings) or valuables the day of surgery, leave them at home. Please take a shower or bath the night before, or the morning of, surgery with an antibacterial soap. Wear comfortable, loose fitting clothing. Children are encouraged to wear pajamas. - Jewelry must be removed prior to entering the operating room. Rings and piercings that are not removed may be cut off. - The hospital will not accept responsibility for valuables. - Please leave all valuables, including medications, at home the day of surgery. If you are going home after surgery, a licensed combine driver must drive you home. - NO public transportation without another adult if you receive anesthesia. - We recommend that an adult stay with you for 24 hours following discharge. - We also recommend that you do not drive, make important decision, drink alcoholic beverages, or take any drugs that were not prescribed by your health care provider for at least 24 hours after your discharge time. For Pediatric surgeries, we recommend two adults accompany the child home. Follow any additional instructions given to you from your surgeon. If you or anyone in your household have experienced Covid symptoms in the past week, please notify your surgeon or the nurse liaison at the phone number below for possible testing. Telephone instructions given to __PATIENT and asked if any additional questions and then verbalized understanding. Patient advised to call surgeon office or pre surgery nurse liaison [phone] if any additional questions.
[2023-02-24 11:05] VITALS: BMI 34.1
[2023-03-03] VITALS (8 sets, daily range): BP systolic 88–141; BP diastolic 40–79; PULSE 85–106; RESP 12–20; TEMP 35.8–36.4; O2SAT 91–100
[2023-03-03 06:32] LABS: Glucose Point of Care 122 mg/dl (65-105)
[2023-03-03] MEDS: LACTATED RINGERS 1,000 ML 30 ML IV CONT (06:59)
--- NOTE | 2023-03-03 07:05 | WPDANESEPPF ---
Anes - Initial Pre Proc Eval Procedure: Operation Date: 03/03/23 07:30 Proposed Procedures p Trans Urethral Resection Bladder Tumor - Salvador Thomas MD Date/Time: 03/03/23 07:05 Surgeon: Salvador Thomas MD Pre Op Diagnosis: bladder tumor Patient Data Age: 73 Gender: M Height: 1.7 m Weight: 97.6 kg Last Vital Signs Temp 96.5 F L 03/03/23 06:51 Pulse 85 03/03/23 06:51 Resp 14 03/03/23 06:51 BP 104/48 L 03/03/23 06:51 Pulse Ox 97 03/03/23 06:51 O2 Del Method Room Air 03/03/23 06:51 Allergies Allergy/AdvReac Type Severity Reaction Status Date / Time amoxicillin Allergy Unknown RASH Verified 03/03/23 06:59 perflutren [From [employer]] Allergy Back Pain Verified 03/03/23 06:59 Home Medications Medication Instructions Recorded Confirmed Type atorvastatin 20 mg tablet 40 mg PO DAILY 05/23/19 02/24/23 History duloxetine 60 mg capsule,delayed 60 mg PO HS 05/23/19 02/24/23 History release metformin 1,000 mg tablet 1,000 mg PO BID 05/23/19 02/24/23 History omeprazole 20 mg capsule,delayed 20 mg PO DAILY 05/23/19 02/24/23 History release oxybutynin chloride 10 mg 10 mg PO HS 05/23/19 02/24/23 History tablet,extended release 24 hr tamsulosin 0.4 mg capsule 0.4 mg PO HS 05/23/19 02/24/23 History cholecalciferol (vitamin D3) 100 5,000 unit PO DAILY 07/23/19 02/24/23 History mcg (4,000 unit) capsule (Vitamin D3) bypmrevs-ot-dhfmj 300 mcg-K 60 1 tablet PO DAILY 07/23/19 02/24/23 History mcg-lycop 600 mcg-lutein 300 mcg tablet (Centrum Silver Men) omega 3-xri-ddu-fish oil 1,000 mg 1,000 cap PO DAILY 07/23/19 02/24/23 History (120 mg-180 mg) capsule (Fish Oil) vitamin B complex (B 1 tablet PO DAILY 07/23/19 02/24/23 History Complex-Vitamin B12 tablet) aspirin 81 mg chewable tablet 81 mg PO DAILY@0800 #30 tabs 07/24/19 02/24/23 Rx (Children's Aspirin) nitroglycerin 0.4 mg sublingual 0.4 mg sublingual Q5-15M PRN Chest 07/24/19 02/24/23 History tablet Pain metoprolol succinate 100 mg 300 mg PO HS 07/14/20 02/24/23 History tablet,extended release 24 hr clopidogrel 75 mg tablet (Plavix) 75 mg PO HS 02/24/23 02/24/23 History empagliflozin 25 mg tablet 25 mg PO HS 02/24/23 02/24/23 History (Jardiance) icosapent ethyl 1 gram capsule 1 g PO HS 02/24/23 02/24/23 History liraglutide 0.6 mg/0.1 mL (18 mg/3 1.8 mg subcut DAILY 02/24/23 02/24/23 History mL) subcutaneous pen injector (Victoza 2-Ilir) magnesium 200 mg tablet 400 mg PO DAILY 02/24/23 02/24/23 History sacubitril 49 mg-valsartan 51 mg 1 tablet PO BID 02/24/23 02/24/23 History tablet spironolactone 25 mg tablet 25 mg PO DAILY 02/24/23 02/24/23 History Laboratory Tests 03/03/23 06:31 POC Capillary Glucose 122 H mg/dl (65-105) Patient hx anesthesia problems: none Family hx anesthesia problems: none Results Review: All pre-operative results and documents have been reviewed as part of the pre-operative evaluation. [facility] Past Medical History Medical History Ankle fracture Benign colon polyp Coronary artery disease Status post 2 vessel CABG in 2012. CVA (cerebral vascular accident) Reported CVA in January 2019 for which he was hospitalized at [facility]. Diverticulosis History of shingles Hyperlipidemia Hypertension Obstructive sleep apnea on CPAP Type 2 diabetes mellitus Hemoglobin A1c was 7.5 in May 2019. Surgical History Surgical History History of ankle surgery Status post cholecystectomy Status post coronary artery bypass graft 2 vessel bypass in 2012. Status post tonsillectomy Family History Family History Father Heart attack Mother Cancer Sibling COPD (chronic obstructive pulmonary disease) Heart attack Cancer Social History Social History (R
--- NOTE | 2023-03-03 07:18 | WPDHPUPDATE1 ---
History and Physical Update Update Date/Time: 03/03/23 07:18 History and Physical has been reviewed, including an updated exam of the patient. There are NO changes in the patient's condition. Risks, benefits, and alternatives have been discussed and questions answered. Patient agrees to proceed with procedure.
[2023-03-03] MEDS: ceFAZolin 2 GM/D5W 50 ML 2 GM/50 ML BAG IVPB (07:30)
[2023-03-03] MEDS: LIDOCAINE HCL 2% GEL UROJET 10 ML PKG MUCOUS MEM (07:52)
[2023-03-03] MEDS: SODIUM CHLORIDE 0.9% IV 23.7 ML, GEMCITABINE HCL 1,000 MG BLADDER ×2 (07:55→07:56)
--- NOTE | 2023-03-03 08:04 | W.PM.PROC2 ---
Procedure Note - Detailed Date of Procedure 03/03/23 Pre-op Diagnosis Bladder tumor (recurrent) Post-op Diagnosis Same Procedure Performed TURBT (small) Surgeon Salvador Thomas MD Anesthesia General Description of Procedure Patient brought to the operative suite where she has prepped draped in routine sterile fashion while in dorsal lithotomy position after the uneventful induction of a general LMA anesthetic. The 24 F resectoscope was placed in his bladder. He has no urethral strictures and moderate lateral lobe hyperplasia prostate. Bladder mucosa was carefully inspected found to have 1 papillary lesion on the left posterior lateral bladder wall, well away from the ureteral orifices. It probably measures 1-2 cm in diameter. It resected with a loop electrode with an attempt made to include detrusor muscle for pathological evaluation invasion. The base and periphery was cauterized. Estimated Blood Loss 0 Packing No Pathology Yes Complications No immediate complications Condition Stable Disposition PACU
--- NOTE | 2023-03-03 08:06 | W.PM.PROC2 ---
Procedure Note - Detailed Date of Procedure 03/03/23 Pre-op Diagnosis Bladder tumor Post-op Diagnosis Same Procedure Performed Gemcitabine installation Surgeon Salvador Thomas MD Anesthesia General Description of Procedure With the patient in the supine position, a 16F Valdes catheter is placed using sterile technique. Using a protective facemask, gown and double layer of gloves Gemcitabine 2gm in 100cc saline is administered through the catheter/into the bladder. The catheter is then plugged. Patient was instructed to lie supine x20min, then to roll both the left and right x20 min. each. Total dwell time will be 60 min., after which the bladder will be drained and catheter removed. Estimated Blood Loss 0 Pathology None sent Complications No immediate complications Condition Stable
[2023-03-03 08:19] LABS: Glucose Point of Care 165 mg/dl (65-105)
[2023-03-03] MEDS: fentaNYL CITRATE INJ (*CRX) 100 MCG/2 ML VIAL 25 MCG IV PUSH ×4 (08:20→08:41)
[2023-03-03] MEDS: SODIUM CHLORIDE 0.9% IV 50 ML BAG 150 ML IRRIGATION (09:00)
== END 2023-03-03 09:43 | disposition home or self-care (01) ==
PROVIDERS: PCP Family Medicine Sports Medicine; Visit Provider Urology
PROC: 0TBB8ZZ Excision of Bladder, Via Natural or Artificial Opening Endoscopic (ICD-10-PCS; CPT 51720; principal; 2023-03-03 07:30)
DX: C67.8 Malignant neoplasm of overlapping sites of bladder (principal); I25.10 Atherosclerotic heart disease of native coronary artery without angina pectoris; I10 Essential (primary) hypertension; E78.5 Hyperlipidemia, unspecified; E11.9 Type 2 diabetes mellitus without complications; G47.33 Obstructive sleep apnea (adult) (pediatric); Z95.1 Presence of aortocoronary bypass graft; Z86.73 Personal history of transient ischemic attack (TIA), and cerebral infarction without residual deficits; E66.9 Obesity, unspecified; Z68.33 Body mass index [BMI] 33.0-33.9, adult; Z79.84 Long term (current) use of oral hypoglycemic drugs; Z79.82 Long term (current) use of aspirin; Z79.02 Long term (current) use of antithrombotics/antiplatelets; Z79.85 Long-term (current) use of injectable non-insulin antidiabetic drugs
CPT/HCPCS: 51720; 52234; 82948; 88305; J0690; J1100; J2405; J2704; J3010; J7120; J9201

== ENCOUNTER 2024-08-23 09:35 | Outpatient (CLI) | payer MEDICARE, OTHER, SELFPAY ==
[2024-08-23 10:18] LABS: Basophils Percent Auto 0.3 % (0.2-1.2); Eosinophils Absolute Auto 0.2 K/mm3 (0-0.3); Eosinophils Percent Auto 3.6 % (0-4.4); Hematocrit 40.2 % (42.0-52.0); Hemoglobin 13.1 g/dL (14.0-18.0); Immature Granulocyte Absolute 0.02 K/mm3 (0.00-0.031); Immature Granulocyte Percent A 0.3 % (0-0.5); Lymphocytes Absolute Auto 2.75 K/mm3 (0.9-3.2); Lymphocytes Percent Auto 44.7 % (18.3-44.2); Mean Corpuscular HGB Conc 32.6 g/dl (32-36); Mean Corpuscular Hemoglobin 31.3 pg (26-34); Mean Corpuscular Volume 96.2 fl (80-100); Mean Platelet Volume 11.2 fl (7.4-10.4); Monocytes Absolute Auto 0.5 K/mm3 (0.1-0.6); Monocytes Percent Auto 8.8 % (2.6-8.5); Neutrophils Absolute Auto 2.6 K/mm3 (1.3-6.7); Neutrophils Percent Auto 42.3 % (45.5-73.1); Platelet Count Result 185 k/mm3 (150-375); Red Blood Count 4.18 M/mm3 (4.6-6.20); Red Cell Distribution Width 13.4 % (11.5-14.5); White Blood Count 6.2 K/mm3 (4.5-10.0)
[2024-08-23 10:36] LABS: Alanine Aminotransferase 15 U/L (6-50); Albumin Level 3.8 g/dL (3.5-5.1); Alkaline Phosphatase 93 U/L (38-126); Anion Gap 5 mmol/L (4-12); Aspartate Amino Transferase 20 U/L (17-59); Bilirubin,Total 0.3 mg/dL (0.2-1.3); Blood Urea Nitrogen 22 mg/dL (9-20); Carbon Dioxide 31 mmol/L (22-30); Chloride 104 mmol/L (98-107); Cholesterol 105 mg/dL (0-200); Creatine Kinase 45 U/L (55-170); Estimated Glomerular Filt Rate > 60; Glucose 146 mg/dL (65-110); HDL Direct 31 mg/dL; Potassium 4.8 mmol/L (3.4-5.0); Sodium 140 mmol/L (137-145); Triglycerides 186 mg/dL (<150)
[2024-08-23 10:45] LABS: LDL Cholesterol Direct 46 mg/dL
--- OUTSIDE RECORDS SUMMARY | 2024-08-23 11:00 | XMS_ITS | Clinical Summary ---
Author Organization [facility] Address [address] [place] [address] Care Team Providers Care Tile Mechanic Helper Name Role Phone Bhanu Gusman MD Primary Care Provider [phone] Source Comments [facility],non-owned Affiliates and Associated Physician Practices is amultiple site organization consisting of ambulatory clinics and hospital sitesin [place], [place], [place] and [place]. This disclosure is being madepursuant to the Care Everywhere program and may not contain all information available regarding this patient. Last updated 18.[facility] Allergies Active Allergy Reactions Criticality Noted Date Comments Amoxicillin Urticaria Medium 04/27/2024 Medications * Be aware that medications may not be up to date on this document. Alwaysverify current medications with the patient. Medication Sig Dispensed Refills Start Date End Date Status atorvastatin (Lipitor) 20 MG tablet Take 1 (one) tablet by mouth at bedtime 12/07/2023 Active clopidogrel (plaVIX) 75 MG tablet Take 1 (one) tablet by mouth once daily 12/07/2023 Active cyanocobalamin (Vitamin B-12) 1000 MCG tablet Take 1 (one) tablet by mouth once daily Active DULoxetine (Cymbalta) 60 MG capsule Take 1 (one) capsule by mouth once daily 12/07/2023 Active empagliflozin (Jardiance) 25 MG tablet Take 0.5 (one-half) tablet by mouth once daily 12/07/2023 Active icosapent ethyl (Vascepa) 1 g capsule Take 2 (two) capsules by mouth 2 times daily with morning and evening meal 02/03/2024 Active liraglutide (Victoza) 18 MG/3ML pen Inject 1.8 mg subcutaneously once daily 03/01/2024 Active metFORMIN (Glucophage) 1000 MG tablet Take 1 (one) tablet by mouth 2 times daily with morning and evening meal 02/03/2024 Active metoprolol succinate XL 24hr (Toprol XL) 200 MG tablet Take 1 (one) tablet by mouth once daily 12/07/2023 Active omeprazole (PriLOSEC) 20 MG capsule Take 1 (one) capsule by mouth once daily 12/07/2023 Active oxyBUTYnin CR 24hr (Ditropan-XL) 10 MG tablet Take 1 (one) tablet by mouth once daily 12/07/2023 Active sacubitril-valsar can (Entresto) 97-103 MG tablet Take 1 (one) tablet by mouth 2 times daily 12/07/2023 Active spironolactone (Aldactone) 25 MG tablet Take 1 (one) tablet by mouth once daily 12/07/2023 Active tamsulosin (Flomax) 0.4 MG capsule Take 1 (one) capsule by mouth once daily 12/07/2023 Active aspirin (Aspirin) 81 MG chew tablet Take 1 (one) tablet by mouth once daily Active oxyCODONE, immediate release, (Roxicodone) 5 MG tabletIndications :Trauma Take 1 (one) tablet by mouth every 6 hours as needed for Pain 12 tablet 04/28/2024 Active docusate sodium (Colace) 100 MG capsule Take 1 (one) capsule by mouth once daily 8 capsule 04/28/2024 Active EPINEPHrine (Epipen) 0.3 MG/0.3ML auto-injector pen Inject 0.3 mL into muscle once as needed for Anaphylaxis 0.6 mL 1 04/28/2024 Active Active Problems Problem Noted Date Diagnosed Date Trauma 04/27/2024 Impaired mobility and ADLs 04/27/2024 Acute pain due to injury 04/27/2024 Fall 04/27/2024 Diverticulosis 04/27/2024 Pulmonary nodule, left 04/27/2024 Hepatic lesion 04/27/2024 Syncope and collapse 04/27/2024 Leukocytosis, unspecified type 04/27/2024 Fall, initial encounter 04/27/2024 Immunizations Name Administration Dates Next Due TDAP (7yrs+) 04/27/2024(Deferred: Patient Condition - pt had shot 3 months ago per pt) Social History Tobacco Use Types Packs/Day Years Used Date Smoking Tobacco: Never Smokeless Tobacco: Never Tobacco Cessation:Counseling Given: No AUDIT-C Answer Date Recorded Q1: How often do you have a drink containing alcohol? Never 04/28/2024 Q2: How many drinks containi ng alcohol do you have on a typical day when you are drinking? Patient does not drink Q3: How often do you have si x or more drinks on one occasion? Never 04/28/2024 Overall Financial Resource Strain (CARDIA) Answe r Date Recorded How hard is it for you to pa y for the very basics like food, housing, medical care, and heating? Not hard at all 04/28/2024 [facility] - Occupational Stress Questionnaire Answer Date Recorded Do you feel stress - tense, restless, nervous, or anxious, or unable to sleep at night because your mind is troubled all the time - these days? Not at all 04/28/2024 Hunger Vital Sign Answer Date Recorded Within the past 12 months, y ou worried that your food would run out before you got the money to buy more. Never true 04/28/20 24 Within the past 12 months, t he food you bought just didn't last and you didn't have money to get more. Never true 04/28/2024 PRAPARE - Transportation Answer Date Re corded In the past 12 months, has l ack of transportation kept you from medical appointments or from getting medications? No 04/13 In the past 12 months, has l ack of transportation kept you from meetings, work, or from getting things needed for daily living? No 04/28/2024 Housing Stability Vital Sign Answer Anderson e Recorded In the last 12 months, was t here a time when you were not able to pay the mortgage or rent on time? No 04/28/2024 In the past 12 months, how m any times have you moved where you were living? 0 04/28/2024 At any time in the past 12 m [facility], were you homeless or living in a penitentiary (including now)? No 04/28/2024 Sex and Gender Information Value Date Recorded Sex Assigned at Not on file Gender Identity Not on file Sexual Orientation Not on file Last Filed Vital Signs Vital Sign Reading Time Taken Comments Blood Pressure 93/59 04/28/2024 12:45 PM [employer]ORTS MEDICINE SPECIALIST Pulse 88 04/28/2024 12:45 PM SPORTS MEDIC[employer] SPECIALIST Temperature 36.6 C (97.8 F) 04/28/2024 12:45 PM SPORTS MEDICINE SPECIALIST Respiratory Rate 20 04/28/2024 12:45 PM SPORTS MEDICINE SPECIALIST Oxygen Saturation 96% 04/28/2024 12:45 PM SPORTS MEDICINE SPECIALIST Inhaled Oxygen Concentration - - Weight 100.2 kg (221 lb) 04/28/2024 2:09 PM SPORTS MEDICINE SPECIALIST Height 170 cm (5' 6.93 ) 04/28/2024 2:09 PM SPORTS MEDICINE SPECIALIST Body Mass Index 34.69 04/28/2024 2:09 PM SPORTS MEDICINE SPECIALIST Plan of Treatment Health Maintenance Due Date Last Done Comments MEDICARE AWV 12 MONTHS 1950 HEPATITIS C SCREENING 01/06/1966 DTAP/TDAP/TD VACCINES (1 - Tdap) 01/10/1967 PNEUMOCOCCAL VACCINE 50+ (1 of 2 - PCV) 01/10/1967 ZOSTER VACCINE (1 of 2) 01/10/1998 Respiratory Syncytial Virus (RSV) Vaccine Pt: or over 60 yrs (1 - 1-dose 75+ series) 01/10/2023 COVID-19 VACCINE ( - season) 2024 09/17/2021, 04/11/2021, 08/26/2020, Additional history exists DEPRESSION SCREENING 06/13/2024 INFLUENZA VACCINE Completed 01/23/2024, , 04/13/2021, Additional history exists HEPATITIS B VACCINE Aged Out No longe r eligible based on patient's age to complete this topic HIB VACCINE Aged Out No longer eligi ble based on patient's age to complete this topic HPV VACCINE Aged Out No longer eligi ble based on patient's age to complete this topic MENINGOCOCCAL (Group B) VACCINE SHARED DECISION-MAKING Aged Out No longer eligible based on patient's age to complete this topic MENINGOCOCCAL GROUPS A/C/Y/W VACCINE Aged Out No longer eligible based on patient's age to complete this topic Advance Directives * Full Code (Latest Code Status on File) Date Activated Date Inactivated Comments 04/28/2024 3:37 AM 04/28/2024 5:51 PM Care Teams Tile Mechanic Helper Relationship Specialty Start Date End Date Bhanu Gusman MD [facility] [place] [address] PCP - General 06/12/19
--- OUTSIDE RECORDS SUMMARY | 2024-08-23 11:00 | XMS_ITS ---
Author Name [facility] Organization [facility] Address [address] [place] [address] Care Team Providers Care Geospatial Applications Developer Name Role Phone DYLAN ARROYO Primary Care Provider Unavailabl e Insurance Providers: All historical and current Section Date Range: From patient's date of to the date document was created. This section includes the names of all active insurance providers for the patient. Insurance Provider Type of Coverage Plan Name Start of Policy Coverage End of Policy Coverage Group Number Member ID Insurance Provider's Telephone Number Policy Mckay's Name Patient's Relationship to Policy Mckay MEDICARE (WNR) MEDICARE (M) PART B Aug 11, 2014 PART B [id number] [phone] BRIGID QUINTERO JR PATIENT MEDICARE (WNR) MEDICARE (M) PART B Aug 11, 2014 PART B [id number] INGRID CASILLASBRIGID PATIENT MEDICARE (WNR) MEDICARE (M) PART A Dec 11, 2012 PART A [id number] BRIGID QUINTERO JR PATIENT MEDICARE (WNR) MEDICARE (M) PART B Dec 11, 2012 PART B [id number] BRIGID QUINTERO JR PATIENT MEDICARE (WNR) MEDICARE (M) PART A Dec 11, 2012 PART A [id number] BRIGID QUINTERO JR PATIENT MEDICARE (WNR) MEDICARE (M) PART A Dec 11, 2012 PART A [id number] [phone] BRIGID QUINTERO JR PATIENT MEDICARE (WNR) MEDICARE (M) PART A Dec 11, 2012 PART A [id number] BRIGID QUINTERO JR PATIENT MEDICARE (WNR) MEDICARE (M) PART B Dec 11, 2012 PART B [id number] BRIGID QUINTERO JR PATIENT MEDICARE PART D (WNR) MEDICARE (M) PART D Jun 13, 2015 PART D [id number] BRIGID QUINTERO JR PATIENT MEDICARE PART D (WNR) MEDICARE (M) PART D Jun 13, 2015 PART D [id number] BRIGID QUINTERO JR PATIENT Selected Encounter This section includes the information on record at MD for the Encounter. Date/Time Encounter Type Encounter Description Reason Pro vider Source Feb 29, 2024 08:43 AM Outpatient Encounter ADMIN PAT ACTIVTIES (MASNONCT) IHE Encounter Template Text not used by MD Plan of Treatment: Future Appointments (+ 6 months) and Future Tests (+/- 45 days) The Plan of Treatment section includes future care activities for the patient from all MD treatmentfacilities. This section includes future appointments and future orders which are active, pending or scheduled. Future Appointments This section includes appointments that were scheduled to occur 6 months from the date of the Encounter, up to a maximum of 20 appointments. The data comes from all MD treatment facilities. Appointment Date/Time Appointment Type Appointme nt Facility Name May 28, 2024 12:47 PM AMBULATORY - MEDICINE [facility] Active, Pending, and Scheduled Orders This section includes a listing of several types of active, pending, and scheduled orders, including clinic medications orders, diagnostic test orders, procedure orders and consult orders; where the start date of the order is 45 days before the date of the Encounter or 45 days after the date of theEncounter. The data comes from all [facility] treatment [facility]. Test Date/Time Test Type Test Details Facility Name Feb 03, 2024 12:00 AM Laboratory - Chemi stry Order MICRAL/CREAT PROFILE (STL) URINE YELLOW SP [facility] Feb 03, 2024 12:00 AM Laboratory - Chemi stry Order OCCULT BLOOD FIT X1 SCREEN STOOL FECES SP [facility] Feb 03, 2024 12:00 AM Laboratory - Chemi stry Order URINALYSIS (STL-PB) URINE SP [facility] Lab Results: +/- 30 days of the encounter This section includes the Chemistry and Hematology Lab Results [facility] record with [facility] for the [facility]. Radiology Reports and Pathology Reports are provided separately, in subsequent sections. Lab Results This section contains the Chemistry/Hematology Results that were resulted 30 days before or 30 daysafter the date of the Encounter. Date/Time Source Result Type Result - Unit Interpretation Reference Range Comment Feb 03, 2024 11:42 AM [facility] HGA1C Specimen Type: BLOOD No comment entered. Ordering Provider: TANGELA ARROYO EN Report Released Date/Time: Feb 03, 2024 11:27 AM Reporting Lab: [facility] [id number] Performing Lab: [facility] [id number] HGA1C 7.1 H 4.0-6.0 Feb 03, 2024 11:42 AM [facility] VITAMIN D, 25-HYDROXY Specimen Type: SERUM No comment entered. Ordering Provider: TANGELA ARROYO EN Report Released Date/Time: Feb 03, 2024 11:27 AM Reporting Lab: [facility] [phone] Performing Lab: [facility] [phone] VITAMIN D, 25-HYDROXY 41.2 ng/mL 30-96 Feb 03, 2024 11:42 AM [facility] LIPID PANEL (STL) Specimen Type: PLASMA Comment: No hemolysis noted. Ordering Provider: TANGELA ARROYO EN Report Released Date/Time: Feb 03, 2024 11:27 AM Reporting Lab: [facility] [phone] Performing Lab: [facility] [place] [address] CHOLESTEROL 101 mg/dL 0-200 TRIGLYCERIDE 126 mg/dL 0-150 CALCULATED LDL 46 mg/dL See Interp HDL(New) 30 mg/dL L > 40 Feb 03, 2024 11:42 AM [facility] TSH (MA-PB) Specimen Type: SERUM No comment entered. Ordering Provider: TANGELA ARROYO EN Report Released Date/Time: Feb 03, 2024 11:27 AM Reporting Lab: [facility] [place] [address] Performing Lab: [facility] [place] [address] TSH 0.426 u[IU]/mL L 0.470-5.000 FREE T4(REFLEX) 1.02 ng/mL 0.70-1.48 Feb 03, 2024 11:42 AM [facility] COMPREHENSIVE METABOLIC PANEL Specimen Type: PLASMA Comment: No hemolysis noted. Ordering Provider: TANGELA ARROYO EN Report Released Date/Time: Feb 03, 2024 11:27 AM Reporting Lab: [facility] [place] [address] Performing Lab: [facility] [place] [address] CREATININE 1.22 mg/dL 0.70-1.30 UREA NITROGEN 16.8 mg/dL 9.0-25.0 GLUCOSE 142 mg/dL H 72-99 SODIUM 138 meq/L 136-145 POTASSIUM 4.9 meq/L 3.5-5.0 CHLORIDE 103 meq/L 98-107 CARBON DIOXIDE 27 meq/L 22-31 CALCIUM 9.4 mg/dL 8.4-10.4 PROTEIN 6.9 g/dL 6.0-8.6 ALBUMIN 4.0 g/dL 3.4-5.0 TOTAL BILIRUBIN 0.3 mg/dL 0.2-1.2 ALKALINE PHOSPHATASE 97 U/L 40-150 AST/SGOT 17 U/L 5-34 ALT/SGPT 12 U/L 8-40 EGFR (CKD-EPI 2020) 61.44 >60 Feb 03, 2024 11:42 AM [facility] CBC Specimen Type: BLOOD No comment entered. Ordering Provider: TANGELA ARROYO Report Released Date/Time: Feb 03, 2024 11:27 AM Reporting Lab: [facility] [phone] Performing Lab: [facility] [address] WBC 7.7 10*3/uL 3.6-11.2 RBC 4.25 10*6/uL 4.10-5.70 HGB 13.3 g/dL 13.1-16.8 HCT 39.6 38.2-48.4 MCV 93.2 fL 80.0-100.0 MCH 31.3 pg 27.0-34.0 MCHC 33.6 g/dL 33.0-36.0 PLT 213 10*3/uL 150-400 MPV 10.6 fL 7.5-11.2 RDW 13.2 11.8-15.1 LYMPHOCYTES, AUTO % 40 MONOCYTES, AUTO % 7 NEUTROPHILS, AUTO % 51 EOSINOPHILS, AUTO % 3 BASOPHILS, AUTO % 0 LYMPHOCYTES, ABSOLUTE 3.04 10*3/uL 0.77-4.50 MONOCYTES, ABSOLUTE 0.50 10*3/uL 0.19-0.80 NEUTROPHILS, ABSOLUTE 3.90 10*3/uL 2.10-8.00 EOSINOPHILS, ABSOLUTE 0.21 10*3/uL 0.00-0.60 BASOPHILS, ABSOLUTE 0.03 10*3/uL 0.00-0.20 Social History: Smoking Status (Most current) and Tobacco Use (All prior to encounter date) This section includes the most current, and the historical, smoking and tobacco- related health factors from the MD facility where the Encounter took place. Current Smoking Status This section includes the most current smoking, or tobacco-related health factor, from the MD facility where the Encounter took place. Date/Time Current Smoking Status Comment Nathaly talbert Feb 03, 2024 11:00 AM VA-TOBACCO NEVER USED [facility] Tobacco Use History This section includes a history of the smoking, or tobacco-related health factors, that were collected on or before the date of the Encounter. The data comes from the MD facility where the Encounter took place. 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 [facility] Feb 03, 2023 03:00 PM VA-TOBACCO USE MED NO [facility] Feb 03, 2023 03:00 PM VA-TOBACCO USER EVERY DAY [facility] Aug 18, 2021 11:00 AM VA-TOBACCO DOESNT USE WI 30 MIN WAKEUP [facility] Aug 18, 2021 11:00 AM VA-TOBACCO USE 30 YEARS OR MORE [facility] Aug 18, 2021 11:00 AM VA-TOBACCO USE ADVICE [facility] Aug 18, 2021 11:00 AM VA-TOBACCO USE 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 [facility] Aug 18, 2021 11:00 AM VA-TOBACCO USE MED NO [facility] Aug 18, 2021 11:00 AM VA-TOBACCO USER EVERY DAY [facility] Aug 19, 2020 03:30 PM VA-TOBACCO DOESNT USE WI 30 MIN WAKEUP [facility] Aug 19, 2020 03:30 PM VA-TOBACCO USE 30 YEARS OR MORE [facility] Aug 19, 2020 03:30 PM VA-TOBACCO USE ADVICE [facility] Aug 19, 2020 03:30 PM VA-TOBACCO USE 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 [facility] Aug 19, 2020 03:30 PM VA-TOBACCO USE MED NO [facility] Aug 19, 2020 03:30 PM VA-TOBACCO USER EVERY DAY [facility] Aug 14, 2019 10:00 AM VA-TOBACCO DOESNT USE WI 30 MIN WAKEUP [facility] Aug 14, 2019 10:00 AM VA-TOBACCO USE 30 YEARS OR MORE [facility] Aug 14, 2019 10:00 AM VA-TOBACCO USE ADVICE [facility] Aug 14, 2019 10:00 AM VA-TOBACCO USE 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 [facility] Aug 14, 2019 10:00 AM VA-TOBACCO USE MED NO [facility] Aug 14, 2019 10:00 AM VA-TOBACCO USER SOME DAYS [facility] Jul 11, 2018 12:59 PM VA-TOBACCO DOESNT USE WI 30 MIN WAKEUP [facility] Jul 11, 2018 12:59 PM VA-TOBACCO USE 30 YEARS OR MORE [facility] Jul 11, 2018 12:59 PM VA-TOBACCO USE ADVICE [facility] Jul 11, 2018 12:59 PM VA-TOBACCO USE 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 [facility] Jul 11, 2018 12:59 PM VA-TOBACCO USE MED NO [facility] Jul 11, 2018 12:59 PM VA-TOBACCO USER EVERY DAY [facility] Aug 09, 2017 09:08 AM CURRENT TOBACCO USER [facility] Aug 09, 2017 09:08 AM CURRENT TOBACCO US ER (NOT READY TO QUIT) [facility] Aug 09, 2017 09:08 AM SMOKELESS TOBACCO AMOUNT/LENGTH V15 dip daily [facility] Aug 09, 2017 09:08 AM TOBACCO CESSATION REFERRAL DECLINED [facility] Aug 09, 2017 09:08 AM TOBACCO MEDS OFFER ED BUT DECLINED [facility] Aug 09, 2017 09:08 AM TOBACCO USER OFFERED MEDS [facility] Jan 31, 2017 09:03 AM LIFETIME NON-USER OF TOBACCO [facility] Sep 26, 2015 11:32 AM CURRENT TOBACCO USER [facility] October 14, 2014 08:51 AM LIFETIME NON-USER OF TOBACCO [facility] Encounter Notes: All associated encounter notes This section contains the clinical notes associated to the Encounter. Date/Time Encounter Note(s) Provider Source Feb 29, 2024 08:43 AM PHARMACY PROGRESS NOTE: LOCAL TITLE: [facility] STANDARD TITLE: PHARMACY PROGRESS NOTE DATE OF NOTE: FEB 29, 2024@08:43 ENTRY DATE: FEB 29, 2024@08:43:53 AUTHOR: ISIAH POWELL EXP COSIGNER: URGENCY: STATUS: COMPLETED pt request refill on the following medications LIRAGLUTIDE (VICTOZA) 6MG/ML INJ PEN 3ML NEEDLE,PEN 31G,5MM /es/ ISIAH POWELL Pharmacist Signed: 02/29/2024 08:44 Receipt Acknowledged By: 02/29/2024 13:46 /es/ LEEROY Mata PA-C, [facility]
--- OUTSIDE RECORDS SUMMARY | 2024-08-23 11:00 | XMS_ITS | CONTINUITY OF CARE DOCUMENT ---
Author Name ashley ramirez Address Unknown Organization [facility] Address [address] [facility] [address] [place] [address] Phone [phone] Care Team Providers Care Owner Oral Surgeon Name Role Phone Janessa GOTTLIEB, Allen Unavailable ANICETO GOTTLIEB, ULI Unavailable [phone] ULI MORELAND MD Unavailable [phone] PROBLEMS Condition Status Date Provider Notes Screening active Allen Riddle MD SLEEP APNEA;ON CPAP active Allen Riddle MD Obesity active Allen Riddle MD CAD active Allen Riddle MD neg vera tid CABG;danie and freee radial active Allen lynn MD Vitamin D deficiency active Allen [place] Hyperlipidemia active Allen Riddle MD FAMILY HISTORY OF HEART DISEASE active Doe Riddle MD dad mi Diabetes mellitus active Allen Riddle MD HTN essential active Allen Riddle MD ENCOUNTERS Date Type Provider Location Encounter Diag nosis - In-person encounter Office Visit Allen Riddle MD [facility] HTN essentialDiabetes mellitusFAMILY HISTORY OF HEART DISEASEHyperlipidemiaVitamin D deficiencyCABG;danie and freee radialCADObesitySLEEP APNEA;ON CPAPScreening VITAL SIGNS Date Observation Value Provider Body Mass Index (Ratio) 39.06 kg/m2 Doe Riddle MD blood pressure, cuff size regular Cy nthia Hurtado blood pressure, diastolic 70 mm[Hg] Cy nthia Hurtado blood pressure, systolic 140 mm[Hg] Radha Hurtado oxygen saturation, oximetry 94 % Leyla Hurtado respiratory rate E&M 16 /min Leyla Hurtado pulse rate 72 /min Leyla ruiz height E&M 66 [in_i] Leyla ruiz weight E&M 242 [lb_av] Leyla ruiz ALLERGIES Allergy Name Onset Date Reaction Criticality Status AMOXICILLIN Low Criticality active RESULTS Date Observation Value Provider Reference Range Interpretation Location lipoprotein, beta, serum, point, quantitative, calculated 44 mg/dL [facility] 0-99 very low density lipoproteins 42 mg/dL [facility] 5-40 High HDL cholesterol, serum 23 mg/dL [facility] >39 Low triglyceride, serum, random 208 mg/dL [facility] 0-149 High cholesterol, serum 109 mg/dL [facility] 100-199 HISTORY OF MEDICATION USE Medication Status Instructions Dates Provider Indications Com ments VASCEPA 1 GM ORAL CAPSULE active two pills twice a day Allen Riddle MD XARELTO 2.5 MG ORAL TABLET active one tab by mouth twice daily Allen Riddle MD CONTRAVE 8-90 MG ORAL TABLET EXTENDED RELEASE 12 HOUR active 1 tab daily x1 week, then 1 tab twice daily x1 week, then 1 tab three times daily x1 week, then two tabs twice daily Allen Riddle MD METFORMIN HCL 1000 MG ORAL TABLET active twice a day Allen Riddle MD ROPINIROLE HCL 0.5 MG ORAL TABLET active take 1 tab daily Leyla Hurtado OXYBUTYNIN CHLORIDE ER 10 MG ORAL TABLET EXTENDED RELEASE 24 HOUR active take 1 tab daily Leyla Hurtado METOPROLOL SUCCINATE ER 25 MG ORAL TABLET EXTENDED RELEASE 24 HOUR active take 1 tab daily Leyla Hurtado METOPROLOL SUCCINATE ER 50 MG ORAL TABLET EXTENDED RELEASE 24 HOUR active take 1 tab daily Leyla Hurtado OMEPRAZOLE 20 MG ORAL CAPSULE DELAYED RELEASE active take 1 cap daily Leyla Hurtado NITROGLYCERIN 0.4 MG SUBLINGUAL TABLET SUBLINGUAL active take as needed Leylakrystin Hurtado LOSARTAN POTASSIUM 100 MG ORAL TABLET active take 1 tab daily Leyla Hurtado LIPITOR 10 MG ORAL TABLET active take 1 tab daily Leyla Hurtado GNP FISH OIL 1000 MG ORAL CAPSULE active Take 1 cap daily Leyla Bryant CYMBALTA 60 MG ORAL CAPSULE DELAYED RELEASE PARTICLES active take 1 cap daily Leyla Bryant ASPIRIN ADULT LOW DOSE 81 MG ORAL TABLET DELAYED RELEASE active One Tab By Mouth Daily Allen Riddle MD SOCIAL HISTORY Date Observation Value Provider social history E&M S moking History: Charu carroll has never smoked. Allen Riddle MD social history reviewed E&M revi ewed - no changes required Allen Riddle MD smoking status Never smoker Leyla dimas FUNCTIONAL STATUS Date Observation Value Provider HRA, CV Assess/Plan, Angina (inactive) Management Plan continue current therapy Allen Riddle MD FAMILY HISTORY Family Member Condition Full Sister Family History of CV A or Stroke: Father Family History of CV A or Stroke: INSURANCE PROVIDERS Payer name Policy type / Coverage type [facility] ID [employer] Other 1 [id number] [place] Medicare [id number] ADVANCE DIRECTIVES Name Date DISCUSSED - NO DECISION MADE TREATMENT PLAN Date Name Performer Cardiology hospital follow up Ramos Riddle MD Cardiology hospital follow up : H is updated medication list for this problem includes: Metoprolol Succinate Er 25 Mg Oral Tablet Extended Release 24 Hour (Metoprolol succinate) ..... Take 1 tab daily Metoprolol Succinate Er 50 Mg Oral Tablet Extended Release 24 Hour (Metoprolol succinate) ..... Take 1 tab daily Losartan Potassium 100 Mg Oral Tablet (Losartan potassium) ..... Take 1 tab daily Aspirin Adult Low Dose 81 Mg Oral Tablet Delayed Release (Aspirin) ..... One tab by mouth daily BP today: 140/70 Allen Riddle MD Cardiology hospital follow up :w ill try conrave Allen Riddle MD Cardiology [facility] follow up : H is updated medication list for this problem includes: Lipitor 10 Mg Oral Tablet (Atorvastatin calcium) ..... Take 1 tab daily Allen Riddle MD Cardiology [facility] follow up :n ml ef 17 Allen Riddle MD [facility] follow up :6 .9 Allen Riddle MD [facility] follow up :nuc 2013 and 17 neg after cabg Allen Riddle MD Date Name LIPID PANEL HISTORY OF PROCEDURES Procedure Date Procedure Name Provider Procedure Notes S tatus EKG Allen Riddle MD complete d
--- OUTSIDE RECORDS SUMMARY | 2024-08-23 11:00 | XMS_ITS | Patient Health Summary ---
Author Organization [facility] Address [address] [place] [address] Care Team Providers Care Credit Risk Specialist Name Role Phone Bhanu Gusman MD Primary Care Provider [phone] Note from [facility],non-owned Affiliates and Associated Physician Practices is amultiple site organization consisting of ambulatory clinics and hospital sitesin [place], [place], [place] and [place]. This disclosure is being madepursuant to the Care Everywhere program and may not contain all information available regarding this patient. Last updated 18.[facility] Allergies * Amoxicillin(Urticaria) -Medium Criticality Medications * Be aware that medications may not be up to date on this document. Alwaysverify current medications with the patient. * atorvastatin (Lipitor) 20 MG tablet(Started 12/07/2023) Take 1 (one) tablet by mouth at bedtime * clopidogrel (plaVIX) 75 MG tablet(Started 12/07/2023) Take 1 (one) tablet by mouth once daily * cyanocobalamin (Vitamin B-12) 1000 MCG tablet Take 1 (one) tablet by mouth once daily * DULoxetine (Cymbalta) 60 MG capsule(Started 12/07/2023) Take 1 (one) capsule by mouth once daily * empagliflozin (Jardiance) 25 MG tablet(Started 12/07/2023) Take 0.5 (one-half) tablet by mouth once daily * icosapent ethyl (Vascepa) 1 g capsule(Started 02/03/2024) Take 2 (two) capsules by mouth 2 times daily with morning and evening meal * liraglutide (Victoza) 18 MG/3ML pen(Started 03/01/2024) Inject 1.8 mg subcutaneously once daily * metFORMIN (Glucophage) 1000 MG tablet(Started 02/03/2024) Take 1 (one) tablet by mouth 2 times daily with morning and evening meal * metoprolol succinate XL 24hr (Toprol XL) 200 MG tablet(Started 12/07/2023) Take 1 (one) tablet by mouth once daily * omeprazole (PriLOSEC) 20 MG capsule(Started 12/07/2023) Take 1 (one) capsule by mouth once daily * oxyBUTYnin CR 24hr (Ditropan-XL) 10 MG tablet(Started 12/07/2023) Take 1 (one) tablet by mouth once daily * sacubitril-valsartan (Entresto) 97-103 MG tablet(Started 12/07/2023) Take 1 (one) tablet by mouth 2 times daily * spironolactone (Aldactone) 25 MG tablet(Started 12/07/2023) Take 1 (one) tablet by mouth once daily * tamsulosin (Flomax) 0.4 MG capsule(Started 12/07/2023) Take 1 (one) capsule by mouth once daily * aspirin (Aspirin) 81 MG chew tablet Take 1 (one) tablet by mouth once daily * oxyCODONE, immediate release, (Roxicodone) 5 MG tablet(Started 04/28/2024) Take 1 (one) tablet by mouth every 6 hours as needed for Pain * docusate sodium (Colace) 100 MG capsule(Started 04/28/2024) Take 1 (one) capsule by mouth once daily * EPINEPHrine (Epipen) 0.3 MG/0.3ML auto-injector pen(Started 04/28/2024) Inject 0.3 mL into muscle once as needed for Anaphylaxis 1 refill by 04/28/2025 Active Problems Problem Noted Date Diagnosed Date Trauma 04/27/2024 Impaired mobility and ADLs 04/27/2024 Acute pain due to injury 04/27/2024 Fall 04/27/2024 Diverticulosis 04/27/2024 Pulmonary nodule, left 04/27/2024 Hepatic lesion 04/27/2024 Syncope and collapse 04/27/2024 Leukocytosis, unspecified type 04/27/2024 Fall, initial encounter 04/27/2024 Social History Tobacco Use Types Packs/Day Years [...] and heating? Not hard at all 04/28/2024 [facility] - Occupational Stress [...] any time in the past 12 m [facility], were you homeless or living in a [facility] (including now)? No 04/28/2024 Sex and Gender Information Value Date Recorded Sex Assigned at Not on file Gender Identity Not on file Sexual Orientation Not on file Last Filed Vital Signs Vital Sign Reading Time Taken Comments Blood Pressure 93/59 04/28/2024 12:45 PM FACSIMILE 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 Pulse 88 04/28/2024 12:45 PM FACSIMILE 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 Temperature 36.6 C (97.8 F) 04/28/2024 12:45 PM FACSIMILE 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 Respiratory Rate 20 04/28/2024 12:45 PM FACSIMILE 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 Oxygen Saturation 96% 04/28/2024 12:45 PM FACSIMILE 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 Inhaled Oxygen Concentration - - Weight 100.2 kg (221 lb) 04/28/2024 2:09 PM FACSIMILE 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 Height 170 cm (5' 6.93 ) 04/28/2024 2:09 PM FACSIMILE 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 Body Mass Index 34.69 04/28/2024 2:09 PM FACSIMILE 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 Procedures * CARDIAC EKG ORDER(Performed 04/30/2024) * SARS-COV-2 (COVID-19) RAPID(Performed 04/28/2024) Performed for Syncope and collapse * HEMOGLOBIN A1C(Performed 04/28/2024) * PHOSPHORUS BLOOD(Performed 04/28/2024) * MAGNESIUM BLOOD(Performed 04/28/2024) * BASIC METABOLIC PANEL (CALCIUM TOTAL)(Performed 04/28/2024) * CBC W/O DIFFERENTIAL(Performed 04/28/2024) * URINALYSIS W/MICROSCOPIC NO CULTURE(Performed 04/28/2024) * URINE DRUG SCREEN IMMUNOASSAY(Performed 04/28/2024) * CT HEAD WO CONTRAST(Performed 04/28/2024) Performed for Trauma * TROPONIN-I HIGH SENSITIVE REFLEX 1HOUR(Performed 04/27/2024) * EKG 12-LEAD(Performed 04/27/2024) Performed for Trauma * CT LUMBAR SPINE WO CONTRAST(Performed 04/27/2024) Performed for Trauma * CT THORACIC SPINE WO CONTRAST(Performed 04/27/2024) Performed for Trauma * CT CHEST ABDOMEN PELVIS W CONT(Performed 04/27/2024) Performed for Trauma * CT CERVICAL SPINE WO CONTRAST(Performed 04/27/2024) Performed for Trauma * CT HEAD WO CONTRAST(Performed 04/27/2024) Performed for Trauma * XR CHEST 1VW PORTABLE(Performed 04/27/2024) Performed for Trauma * XR PELVIS 1 OR 2VW(Performed 04/27/2024) Performed for Trauma * TRYPTASE(Performed 04/27/2024) * TROPONIN-I HIGH SENSITIVE BASELINE + 1HR(Performed 04/27/2024) * TEG 6S PLATELET MAPPING(Performed 04/27/2024) * TEG 6 GLOBAL HEMOSTASIS W/ LYSIS(Performed 04/27/2024) * CBC W AUTO DIFFERENTIAL(Performed 04/27/2024) * BASIC METABOLIC PANEL (CALCIUM TOTAL)(Performed 04/27/2024) * ALCOHOL ETHYL BLOOD(Performed 04/27/2024) * CARDIAC CATH(Performed 07/30/2019) * LAB MISC TEST(Performed 07/30/2019) Results * CARDIAC EKG ORDER (04/30/2024 1:54 PM FACSIMILE 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) Narrative 04/30/2024 1:54 PM FACSIMILE 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 Ordered by an unspecified provider. Scanned Document CARDIAC SERVICES ORD ERABLES * SARS-COV-2 (COVID-19) RAPID (04/28/2024 10:32 AM FACSIMILE 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) COVID-19 PCR Not detected Not detected 04/28/20 24 11:18 AM FACSIMILE 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 [facility] Microbiology SPECIMEN FROM NASOPHARYNGEAL STRUCTURE / Unknown Collection / Unknown 04/28/2024 10:32 AM FACSIMILE 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 04/28/2024 10:45 AM FACSIMILE 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 [facility] - 04/28/2024 11:18 AM FACSIMILE 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 The Cepheid Xpert Xpress SARS-COV-2 has been authorized by the Food and Drug Administration (FDA) under an Emergency Use Authorization (EUA). This test has been validated in accordance with the FDA's guidance document Policy for Diagnostic Testing in Laboratories Certified to perform High Complexity Testing under CLIA prior to Emergency Use Authorization for Coronavirus Disease-2019 during the Public Health Emergency issued on August 11, 2019. FDA independent review of this validation is pending. This test is only authorized for the duration of the time the declaration that circumstances exist justifying the authorization of emergency use of in vitro diagnostic tests for detection of SARS-COV-2 virus and/or diagnosis of COVID-19 infection under 564(b) (1) of the Act. 21 U.S.C. 360bbb-3 (b) (1), unless the authorization is terminated or revoked sooner. Fact Sheets for this EUA assay are available upon request. Nathanael Mcmanus MD LAB - MICROBIOLOGY O RDERABLES [facility] [address] [place] [address], [facility] [phone] * (ABNORMAL) HEMOGLOBIN A1C (04/28/2024 8:43 AM FACSIMILE 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) Pathologist [facility] Hemoglobin A1c 6.9(H) <=5.6 % 04/28/2024 11:14 AM [facility] Estimated Average Glucose 151 mg/dL 04/28/2024 11:14 AM [facility] Comment: HbA1c Interpretation: Normal : < 5.7% Pre-diabetes: 5.7-6.4% Diabetes: Equal to or greater than 6.5% Test results diagnostic of diabetes should be repeated for confirmation. Treatment target values recommended by ADA and other clinical organizations should be used to evaluate metabolic control in patients. Reference: [place] Diabetes Association, Standards of Care in Diabetes -2020 In patients 70 years and older consider HbA1c target range of 7.0-7.5% (Reference: Pollo Tang et al. JAMDA. 2012) The Sebia assay for the measurement of HbA1c is a National Glycohemoglobin Standardization Program (NGSP) certified method. Blood BLOOD SPECIMEN / Unknown Venipuncture / Unknown 04/28/2024 8:43 AM FACSIMILE 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 04/28/2024 8:57 AM FACSIMILE 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 Sharmila Olmos BUSINESS COMPUTERS TEACHER-TOASTER ELEMENT REPAIRER LAB - CHEMISTRY O RDERABLES [facility] [address] [place] [address], [facility] [phone] * (ABNORMAL) CBC W/O DIFFERENTIAL (04/28/2024 8:43 AM FACSIMILE 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) WBC 15.1(H) 4.0 - 10.7 x10E9/L 04/28/2024 9:05 AM [facility] RBC Count 4.42 4.30 - 5.80 x10E12/L 04/28/2024 9:05 AM [facility] Hemoglobin 13.8 13.3 - 17.5 g/dL 04/28/2024 9:05 AM [facility] Hematocrit 41.2 38.7 - 51.1 % 04/28/2024 9:05 AM [facility] MCV 93.2 80.0 - 98.0 fL 04/28/2024 9:05 AM [facility] MCH 31.2 26.7 - 33.6 pg 04/28/2024 9:05 AM [facility] MCHC 33.5 31.7 - 36.3 g/dL 04/28/2024 9:05 AM [facility] RDW-CV 12.7 11.3 - 14.8 % 04/28/2024 9:05 AM [facility] Platelet Count 211 150 - 420 x10E9/L 04/28/2024 9:05 AM [facility] MPV 11.2 7.8 - 11.4 fL 04/28/2024 9:05 AM [facility] Blood BLOOD SPECIMEN / Unknown Venipuncture / Unknown 04/28/2024 8:43 AM FACSIMILE 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 04/28/2024 8:57 AM [facility] Sharmila Olmos BUSINESS COMPUTERS TEACHER-TOASTER ELEMENT REPAIRER LAB - HEMATOLOGY ORDERABLES [facility] [address] [place] [address], [facility] [phone] * (ABNORMAL) BASIC METABOLIC PANEL (CALCIUM TOTAL) (04/28/2024 8:43 AM [facility]) Only the most recent of2 resultswithin the time period is included. BUN 24 7 - 26 mg/dL 04/28/2024 9:21 AM [facility] Creatinine 1.33(H) 0.71 - 1.16 mg/dL 04/28/2024 9:21 AM [facility] Sodium 137 136 - 145 mmol/L 04/28/2024 9:21 AM [facility] Potassium 4.7(H) 3.5 - 4.5 mmol/L 04/28/2024 9:21 AM [facility] Chloride 104 98 - 107 mmol/L 04/28/2024 9:21 AM [facility] CO2 22 22 - 29 mmol/L 04/28/2024 9:21 AM [facility] Glucose 208(H) 70 - 99 mg/dL 04/28/2024 9:21 AM [facility] Calcium 8.8 8.4 - 10.2 mg/dL 04/28/2024 9:21 AM [facility] Anion Gap 11 6 - 16 04/28/2024 9:21 AM [facility] BUN/Creatinine Ratio 18 7 - 23 04/28/2024 9:21 AM [facility] Osmolality Calculated 294 275 - 295 mOsm/kg 04/28/2024 9:21 AM [facility] eGFR by CKD-EPI 55(L) >=90 mL/min/1.7 3 m2 04/28/2024 9:21 AM [facility] Blood BLOOD SPECIMEN / Unknown Venipuncture / Unknown 04/28/2024 8:43 AM FACSIMILE 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 04/28/2024 8:57 AM FACSIMILE 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 Sharmila Olmos APRN-TOASTER ELEMENT REPAIRER LAB - CHEMISTRY O RDERAYOHAN [address] [address], [facility] [phone] * PHOSPHORUS BLOOD (04/28/2024 8:43 AM FACSIMILE 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) Phosphorus 3.8 2.8 - 5.1 mg/dL 04/28/2024 9:21 AM [facility] Blood BLOOD SPECIMEN / Unknown Venipuncture / Unknown 04/28/2024 8:43 AM FACSIMILE 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 04/28/2024 8:57 AM FACSIMILE 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 Sharmila Olmos APRNTapstream LAB - CHEMISTRY O RDERABLES [address] [address], [facility] [phone] * MAGNESIUM BLOOD (04/28/2024 8:43 AM FACSIMILE 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) Magnesium 1.9 1.6 - 2.6 mg/dL 04/28/2024 9:21 AM [facility] Blood BLOOD SPECIMEN / Unknown Venipuncture / Unknown 04/28/2024 8:43 AM FACSIMILE 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 04/28/2024 8:57 AM FACSIMILE 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 Sharmila Olmos BUSINESS COMPUTERS TEACHER-TOASTER ELEMENT REPAIRER LAB - CHEMISTRY O RDERABLES [facility] [address] [place] [address], [facility] [phone] * (ABNORMAL) URINALYSIS W/MICROSCOPIC NO CULTURE (04/28/2024 8:42 AM FACSIMILE 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) Color UA Yellow Straw, Yellow 04/28/2024 9:03 AM [facility] Clarity UA Clear Clear 04/28/2024 9:03 AM [facility] Specific Wilbur UA 1.047(H) 1.005 - 1.030 04/28/2024 9:03 AM [facility] pH UA 5.0 5.0 - 8.0 pH 04/28/2024 9:03 AM [facility] Protein UA Negative Negative 04/28/2024 9:03 AM [facility] Glucose UA Negative Negative 04/28/2024 9:03 AM [facility] Ketone UA Negative Negative 04/28/2024 9:03 AM [facility] Bilirubin UA Negative Negative 04/28/2024 9:03 AM [facility] Blood UA Negative Negative 04/28/2024 9:03 AM [facility] Nitrite UA Negative Negative 04/28/2024 9:03 AM [facility] Leukocyte Esterase Negative Negative 04/28/2024 9:03 AM [facility] Urobilinogen UA Negative Negative mg/dL 04/28/2024 9:03 AM [facility] RBC UA 0-2 None Seen, 0-2, 3-5 /HPF 04/28/2024 9:03 AM [facility] WBC UA 0-5 None Seen, 0-5 /HPF 04/28/2024 9:03 AM [facility] Squamous Epithelial Cells UA 0-2 None Seen, 0-2, 3-5 /HPF 04/28/2024 9:03 AM [facility] Urine URINE SPECIMEN OBTAINED BY CLEAN CATCH PROCEDURE / Unknown Collection / Unknown 04/28/2024 8:42 AM FACSIMILE 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 04/28/2024 8:50 AM [facility] Narrative [facility] - 04/28/2024 9:03 AM [facility] William Obando MD LAB - URINALYSIS OR DERABLES [facility] [address] [place] [address], [facility] [phone] * URINE DRUG SCREEN IMMUNOASSAY (04/28/2024 8:42 AM [facility]) [facility] Amphetamines Screen Urine Negative Negative: < 1000 ng/mL 04/28/2024 9:35 AM [facility] Barbiturates Screen Urine Negative Negative: < 200 ng/mL 04/28/2024 9:35 AM [facility] Benzodiazepine Screen Urine Negative Negative: < 200 ng/mL 04/28/2024 9:35 AM [facility] Opiates Urine Negative Negative: < 300 ng/mL 04/28/2024 9:35 AM [facility] Cocaine Metabolites Urine Negative Negative: < 300 ng/mL 04/28/2024 9:35 AM [facility] Phencyclidine Screen Urine Negative Negative: < 25 ng/ml 04/28/2024 9:35 AM [facility] Cannabinoids Screen Urine Negative Negative: <50 ng/mL 04/28/2024 9:35 AM [facility] Methadone Screen Urine Negative Negative: < 300 ng/mL 04/28/2024 9:35 AM [facility] Fentanyl Screen Urine Negative Negative: <1.5 ng/mL 04/28/2024 9:35 AM [facility] Urine URINE / Unknown Collection / Unknown 04/28/2024 8:42 AM FACSIMILE 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 04/28/2024 8:50 AM [facility] Narrative [facility] - 04/28/2024 9:35 AM [facility] The Urine Toxicology Screening Panel does not screen for Propoxyphene, Meprobamate, Carisoprodol, Trazodone, [id number] medications and/or volatiles (Acetone, Isopropanol, Methanol or Ethylene Glycol). Ethanol, Salicylate, Acetaminophen, Tricyclic Antidepressants and several therapeutic drugs may be individually assayed in serum or plasma specimen. Toxicology testing by the [facility] is an aid to medical diagnosis and treatment of patients. No documented chain of custody was maintained. Results are intended to be used for clinical purposes only. William Obando MD LAB - URINE OFFENDER JOB RETENTION SPECIALIST RY ORDERABLES [place] [id number] [place] [address], [facility] [phone] * CT Head Wo Contrast (04/28/2024 12:30 AM FACSIMILE 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) Only the most recent of2 resultswithin the time period is included. Anatomical Region Laterality Modality Head Computed Tomogra phy 04/28/2024 1:16 AM FACSIMILE 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 Impressions 04/28/2024 7:28 AM FACSIMILE 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 IMPRESSION: 1.Within the limitations of this exam, no distinct acute intra or extra-axial fluid collections are identified; however, subtle acute hemorrhage cannot be excluded in the posterior fossa due to limited evaluation in the presence of beam hardening artifact. Overall appearance is similar to prior exam. 2.If there is persistent clinical concern for intracranial pathology, an MRI of the brain could be obtained for further evaluation. > Dictated by Randy Garza DO (Managed Care Analyst), 04/28/2024 1:16 AM. IChrista MD have personally reviewed and interpreted this examination/study. > Interpreting Provider: Christa German MD on 04/28/2024 7:28 AM Narrative 04/28/2024 7:28 AM FACSIMILE 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 PROCEDURE: CT HEAD WO CONTRAST, DATE/TIME OF EXAM: 04/28/2024 12:30 AM, LOCATION [facility] INDICATION: T14.90XA: Trauma EXAMINATION: Computed tomography (CT) of the head without contrast ADDITIONAL CLINICAL INFORMATION: Ordering Provider Reason For Exam: SAH TECHNIQUE: CT of the head was performed without contrast according to standard protocol. CT dose reduction technique was used, including Automated Exposure Control. COMPARISON: CT head 04/27/2024 FINDINGS: Redemonstrated beam hardening artifact limiting evaluation of the posterior fossa. Within the limitations of this exam, no distinct acute intra- or extra-axial fluid collections are identified. However, a subtle acute hemorrhage cannot be excluded in the posterior fossa due to beam marking artifact. There is mild cerebral volume loss with associated ex vacuo ventricular dilatation. The basilar cisterns are patent. No mass effect or midline shift is seen. The coleman-white matter differentiation is normal. There is vascular calcification of the carotid siphons. No acute calvarial fracture is identified. Other than bilateral cataract extractions, the orbits appear normal. There is mild paranasal sinus disease. The mastoid air cells are clear. No soft tissue abnormality is identified. Procedure Note Christa German MD - 04/28/2024 PROCEDURE: CT HEAD WO CONTRAST, DATE/TIME OF EXAM: 04/28/2024 12:30AM, LOCATION [facility] INDICATION: T14.90XA: Trauma EXAMINATION: Computed tomography (CT) of the head without contrast ADDITIONAL CLINICAL INFORMATION: Ordering Provider Reason For Exam: SAH TECHNIQUE: CT of the head was performed without contrast according to standard protocol. CT dose reduction technique was used, including Automated Exposure Control. COMPARISON: CT head 04/27/2024 FINDINGS: Redemonstrated beam hardening artifact limiting evaluation of theposterior fossa. Within the limitations of this exam, no distinct acute intra- or extra-axial fluid collections are identified. However, a subtle acute hemorrhage cannot be excluded in the posterior fossa due to beam marking artifact. There is mild cerebral volume loss with associated ex vacuo ventricular dilatation. The basilar cisterns are patent. No mass effector midline shift is seen. The coleman-white matter differentiation is normal. There is vascular calcification of the carotid siphons. No acutecalvarial fracture is identified. Other than bilateral cataract extractions, the orbits appear normal. There is mild paranasal sinus disease. The mastoid air cells are clear. No soft tissue abnormality is identified. IMPRESSION: 1.Within the limitations of this exam, no distinct acute intra or extra-axial fluid collections are identified; however, subtle acute hemorrhage cannot be excluded in the posterior fossa due to limited evaluation in the presence of beam hardening artifact. Overallappearance is similar to prior exam. 2.If there is persistent clinical concern for intracranial pathology, an MRI of the brain could be obtained for further evaluation. > Dictated by Randy Garza DO (Managed Care Analyst), 04/28/2024 1:16AM. I, Christa German MD have personally reviewed and interpretedthis examination/study. > Interpreting Provider: Christa German MD on 04/28/2024 7:28 AM Cierra Stevens MD CT ORDERABLES * TROPONIN-I HIGH SENSITIVE REFLEX 1HOUR (04/27/2024 7:59 PM FACSIMILE 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) Troponin I High Sensitive 3 <=35 ng/L 04/27/2024 8:52 PM FACSIMILE 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 [facility] Delta Troponin I HS 04/27/2024 8:52 PM FACSIMILE 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 [facility] Comment:Delta value intentio harry not calculated. Baseline to 1 hour specimen collection interval exceeded. Blood BLOOD SPECIMEN / Unknown Venipuncture / Unknown 04/27/2024 7:59 PM FACSIMILE 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 04/27/2024 8:17 PM FACSIMILE 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 Cierra Stevens MD LAB - CHEMISTRY [facility] Performing Organization Address [facility]/ZIP Co de Phone Number [facility] [address] [place] [address], [facility] [phone] * EKG 12-LEAD (04/27/2024 7:55 PM FACSIMILE 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) Ventricular Rate 105 BPM [facility]USE Atrial Rate 105 BPM [facility] P-R Interval 192 ms [facility] QRS Duration ms 92 ms [facility] Q-T Interval ms 318 ms [facility] QTC Calculation (Bezet) 420 ms [facility] Calculated P [place] 38 degrees SL MUSE Calculated R [place] -44 degrees [facility] Calculated T [place] 74 degrees [facility] Interpretation EKG SINUS TACHYCARDIA WITH FUSION COMPLEXES LEFT AXIS DEVIATION ABNORMAL ECG NO PREVIOUS ECGS AVAILABLE Confirmed by JUDD GOTTLIEB, CHRISTIANE ([id number]) on 05/01/2024 8:44:26 AM [facility] 04/27/2024 7:55 PM FACSIMILE 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 05/01/2024 8:44 AM FACSIMILE 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 William Obando MD ECG ORDERABLES Performing Organization Address City/[facility]/ZIP Co de Phone Number [facility] * CT CHEST ABDOMEN PELVIS W CONT - Abdomen-pelvis trauma, blunt or penetrating (04/27/2024 6:02 PM FACSIMILE 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) Anatomical Region Laterality Modality Chest, Abdomen, Pelvis Computed Tomography 04/27/2024 6:56 PM FACSIMILE 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 Impressions 04/27/2024 10:29 PM FACSIMILE 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 IMPRESSION: 1.No acute visceral, vascular, or osseus injury identified in the chest, abdomen, or pelvis. 2.Two 9 mm solid pulmonary nodules in left lower lobe. Short-term follow-up with CT of chest in 3 months is recommended. 3.A 4.5 cm well-circumscribed hypoattenuated lesion with simple fluid density in hepatic segment 5 most likely represents a cyst in absence of known malignancy or background liver disease. 4.Colonic diverticulosis without evidence of acute diverticulitis. > Dictated by Uzair Montgomery MD (residential finish carpenter). I, Kirk Santos MD have personally reviewed and interpreted this examination/study. > Interpreting Provider: Kirk Santos MD on 04/27/2024 10:29 PM Narrative 04/27/2024 10:29 PM FACSIMILE 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 PROCEDURE: CT CHEST ABDOMEN PELVIS W CONT, DATE/TIME OF EXAM: 04/27/2024 6:04 PM, LOCATION [facility] INDICATION: Trauma COMPARISON: None. TECHNIQUE: CT of the chest, abdomen, and pelvis was performed after the uneventful administration of 100 mL of Isovue 370 intravenous contrast according to standard protocol. FINDINGS: Chest: Lower Neck and Axillae: Normal. Lungs: Mild dependent atelectasis is noted in bilateral lower lungs. No pulmonary parenchymal or airway process is otherwise present. 9 mm solid pulmonary nodules are noted in left lower lobe (series 5, images 54 and 65). No pleural fluid or pneumothorax is present. Heart and Pericardium: The cardiac chambers are normal in size. No pericardial fluid or thickening is present. The coronary arteries are atherosclerotic. Mediastinum and Mel: No mediastinal hemorrhage is present. No enlarged lymph nodes are present. Thoracic Vasculature: The aorta and its branch vessels are atherosclerotic. Abdomen/pelvis: Liver: A 4.5 cm well-circumscribed hypoattenuated lesion with simple fluid density in hepatic segment 5 likely represents a cyst. Gallbladder and Bile Ducts: The gallbladder is absent. No biliary dilatation. Spleen: Normal. Pancreas: Normal. Adrenals: Normal. Kidneys: Multiple renal cysts are noted bilaterally. No radiopaque stones or hydronephrosis. Gastrointestinal: The stomach and visualized loops of small bowel are unremarkable. Colonic diverticulosis without evidence of diverticulitis is seen. Normal appendix. Mesentery/Peritoneum/Retroperitoneum: No free intraperitoneal air. No free fluid in the abdomen or pelvis. Bladder: Normal. Reproductive Organs: The prostate is partially calcified. Abdominal Vasculature: Extensive atherosclerotic calcification of the aorta and its branch vessels. Bones: Bone windows demonstrate no suspicious lytic or blastic lesions. Partially visualized anterior lower cervical spinal fusion. The visible osseous structures are otherwise intact. Degenerative changes are seen in the spine. Soft tissues: Normal. Procedure Note Kirk Santos MD - 04/27/2024 PROCEDURE: CT CHEST ABDOMEN PELVIS W CONT, DATE/TIME OF EXAM:04/27/2024 6:04 PM, LOCATION [facility] INDICATION: Trauma COMPARISON: None. TECHNIQUE: CT of the chest, abdomen, and pelvis was performed after the uneventful administration of 100 mL of Isovue 370 intravenous contrast according to standard protocol. FINDINGS: Chest: Lower Neck and Axillae: Normal. Lungs: Mild dependent atelectasis is noted in bilateral lower lungs. No pulmonary parenchymal or airway process is otherwise present. 9 mm solid pulmonary nodules are noted in left lower lobe (series 5, images 54 and 65). No pleural fluid or pneumothorax is present. Heart and Pericardium: The cardiac chambers are normal in size. No pericardial fluid or thickening is present. The coronary arteries are atherosclerotic. Mediastinum and Mel: No mediastinal hemorrhage is present. No enlarged lymph nodes are present. Thoracic Vasculature: The aorta and its branch vessels areatherosclerotic. Abdomen/pelvis: Liver: A 4.5 cm well-circumscribed hypoattenuated lesion with simplefluid density in hepatic segment 5 likely represents a cyst. Gallbladder and Bile Ducts: The gallbladder is absent. No biliary dilatation. Spleen: Normal. Pancreas: Normal. Adrenals: Normal. Kidneys: Multiple renal cysts are noted bilaterally. No radiopaquestones or hydronephrosis. Gastrointestinal: The stomach and visualized loops of small bowel are unremarkable. Colonic diverticulosis without evidence of diverticulitisis seen. Normal appendix. Mesentery/Peritoneum/Retroperitoneum: No free intraperitoneal air. Nofree fluid in the abdomen or pelvis. Bladder: Normal. Reproductive Organs: The prostate is partially calcified. Abdominal Vasculature: Extensive atherosclerotic calcification of theaorta and its branch vessels. Bones: Bone windows demonstrate no suspicious lytic or blastic lesions. Partially visualized anterior lower cervical spinal fusion. The visible osseous structures are otherwise intact. Degenerative changes are seenin the spine. Soft tissues: Normal. IMPRESSION: 1.No acute visceral, vascular, or osseus injury identified in the chest, abdomen, or pelvis. 2.Two 9 mm solid pulmonary nodules in left lower lobe. [id number] with CT of chest in 3 months is recommended. 3.A 4.5 cm well-circumscribed hypoattenuated lesion with simple fluid density in hepatic segment 5 most likely represents a cyst in absence of known malignancy or background liver disease. 4.Colonic diverticulosis without evidence of acute diverticulitis. > Dictated by Uzair Montgomery MD (residential finish carpenter). Kirk Sanders MD have personally reviewed and interpreted this examination/study. > Interpreting Provider: Kirk Santos MD on 04/27/2024 10:29 PM William Obando MD CT ORDERABLES * CT LUMBAR SPINE WO CONTRAST - T/L-spine trauma, Spine fracture (04/27/2024 6:02 PM FACSIMILE 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) Anatomical Region Laterality Modality Spine Computed Tomogra phy 04/27/2024 5:41 PM FACSIMILE 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 Impressions 04/27/2024 10:14 PM FACSIMILE 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 IMPRESSION: 1.Within the limitations of this exam, no distinct acute intra or extra-axial fluid collections are identified; however, a subtle acute hemorrhage cannot be excluded in the posterior fossa due to beam hardening artifact. 2.No evidence of acute fracture in the cervical, thoracic, or lumbar spine. 3.Please refer to the concurrent, dedicated body report for findings in the chest, abdomen, and pelvis. > Dictated by Randy Garza DO (Managed Care Analyst), 04/27/2024 6:51 PM. Christa Sanders MD have personally reviewed and interpreted this examination/study. > Interpreting Provider: Christa German MD on 04/27/2024 10:14 PM Narrative 04/27/2024 10:14 PM FACSIMILE 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 PROCEDURE: CT HEAD WO CONTRAST, CT LUMBAR SPINE WO CONTRAST, CT THORACIC SPINE WO CONTRAST, CT CERVICAL SPINE WO CONTRAST, DATE/TIME OF EXAM: 04/27/2024 5:15 PM, LOCATION [facility] INDICATION: Trauma EXAMINATION: 1.Computed tomography (CT) of the head without contrast 2.CT of the cervical spine without contrast 3.CT of the thoracic spine without contrast 4.CT of the lumbar spine without contrast TECHNIQUE: CT of the head and cervical spine was performed without contrast according to standard protocol. Reformatted axial, sagittal, and coronal images of the thoracic and lumbar spine were obtained by the technologist from a concurrently performed body CT and sent to the workstation for review. CT dose reduction technique was used, including Automated Exposure Control. COMPARISON: No prior study is available for comparison at the time of this dictation. FINDINGS: Head: Limited evaluation of the posterior fossa due to beam hardening artifact. Within the limitations of this exam, no distinct acute intra- or extra-axial fluid collections are identified; however, a subtle acute hemorrhage cannot be excluded in the posterior fossa due to beam hardening artifact. There is mild cerebral volume loss with associated ex vacuo ventricular dilatation. The basilar cisterns are patent. No mass effect or midline shift is seen. The coleman-white matter differentiation is normal. There is vascular calcification of the carotid siphons. No acute calvarial fracture is identified. Other than bilateral cataract extractions, the orbits appear normal. There is mild paranasal sinus disease. The mastoid air cells are clear. No soft tissue abnormality is identified. Cervical spine: Postsurgical changes of an anterior cervical discectomy and fusion from C4 to C6. Minimal anterolisthesis of C3 on C4. The alignment is otherwise maintained. No acute fracture is identified. Other than advanced middle atlantoaxial joint osteoarthritis, the craniocervical junction appears normal. There is advanced degenerative disc disease. Posterior disc osteophyte complex most prominent at C6-C7. There are varying degrees of advanced facet osteoarthritis. There are varying degrees of advanced uncovertebral joint osteoarthritis with the same degree of neural foraminal stenosis at these levels. There is atherosclerotic calcification of the carotid bifurcations. Thoracic spine: The alignment is normal. Chronic anterior wedge deformity of the T12 vertebral body without significant height loss. No acute fracture identified. There is advanced degenerative disc disease, worse at T8-T9. No central canal stenosis is seen. There is mild facet osteoarthritis at multiple levels. There are varying degrees of neural foraminal stenosis at multiple levels. There is subsegmental atelectasis in the dependent portions of the lung bases. There is atherosclerotic calcification of the thoracic aorta and its branch vessels. Lumbar spine: Grade 1 retrolisthesis of L3 on L4. Vertebral bodies are normal in height without evidence of acute fracture. There is diffuse disc bulge at multiple levels. There is spinal canal narrowing most prominent at L4-L5. There is mild facet osteoarthritis at multiple levels. There are varying degrees of neural foraminal stenosis at multiple levels. There is atherosclerotic calcification of the abdominal aorta and its branch vessels. There are degenerative changes of the SI joints. Brain injury guidelines: Skull fracture: No Subdural hematoma: No subdural hematoma. Epidural hematoma: No epidural hematoma. Intraparenchymal hemorrhage: No intraparenchymal hemorrhage. Subarachnoid hemorrhage: No subarachnoid hemorrhage. Intraventricular hemorrhage: No. Midline shift: No. Procedure Note Christa German MD - 04/27/2024 PROCEDURE: CT HEAD WO CONTRAST, CT LUMBAR SPINE WO CONTRAST, CTTHORACIC SPINE WO CONTRAST, CT CERVICAL SPINE WO CONTRAST, DATE/TIME OF EXAM: 04/27/2024 5:15 PM, LOCATION [facility] INDICATION: Trauma EXAMINATION: 1.Computed tomography (CT) of the head without contrast 2.CT of the cervical spine without contrast 3.CT of the thoracic spine without contrast 4.CT of the lumbar spine without contrast TECHNIQUE: CT of the head and cervical spine was performed withoutcontrast according to standard protocol. Reformatted axial, sagittal, and coronal images of the thoracic and lumbar spine were obtained by thetechnologist from a concurrently performed body CT and sent to the workstation for review. CT dose reduction technique was used, including AutomatedExposure Control. COMPARISON: No prior study is available for comparison at the time ofthis dictation. FINDINGS: Head: Limited evaluation of the posterior fossa due to beam hardeningartifact. Within the limitations of this exam, no distinct acute intra- or extra-axial fluid collections are identified; however, a subtle acute hemorrhage cannot be excluded in the posterior fossa due to beamhardening artifact. There is mild cerebral volume loss with associated ex vacuo ventricular dilatation. The basilar cisterns are patent. No mass effector midline shift is seen. The coleman-white matter differentiation is normal. There is vascular calcification of the carotid siphons. No acutecalvarial fracture is identified. Other than bilateral cataract extractions, the orbits appear normal. There is mild paranasal sinus disease. The mastoid air cells are clear. No soft tissue abnormality is identified. Cervical spine: Postsurgical changes of an anterior cervical discectomy and fusion fromC4 to C6. Minimal anterolisthesis of C3 on C4. The alignment is otherwise maintained. No acute fracture is identified. Other than advanced middle atlantoaxial joint osteoarthritis, the craniocervical junction appears normal. There is advanced degenerative disc disease. Posterior disc osteophyte complex most prominent at C6-C7. There are varying degrees of advanced facet osteoarthritis. There are varying degrees of advanced uncovertebral joint osteoarthritis with the same degree of neuralforaminal stenosis at these levels. There is atherosclerotic calcification of the carotid bifurcations. Thoracic spine: The alignment is normal. Chronic anterior wedge deformity of the T12 vertebral body without significant height loss. No acute fracture identified. There is advanced degenerative disc disease, worse at T8-T9.No central canal stenosis is seen. There is mild facet osteoarthritis at multiple levels. There are varying degrees of neural foraminal stenosisat multiple levels. There is subsegmental atelectasis in the dependent portions of the lung bases. There is atherosclerotic calcification ofthe thoracic aorta and its branch vessels. Lumbar spine: Grade 1 retrolisthesis of L3 on L4. Vertebral bodies are normal inheight without evidence of acute fracture. There is diffuse disc bulge atmultiple levels. There is spinal canal narrowing most prominent at L4-L5. Thereis mild facet osteoarthritis at multiple levels. There are varying degreesof neural foraminal stenosis at multiple levels. There is atherosclerotic calcification of the abdominal aorta and its branch vessels. There are degenerative changes of the SI joints. Brain injury guidelines: Skull fracture: No Subdural hematoma: No subdural hematoma. Epidural hematoma: No epidural hematoma. Intraparenchymal hemorrhage: No intraparenchymal hemorrhage. Subarachnoid hemorrhage: No subarachnoid hemorrhage. Intraventricular hemorrhage: No. Midline shift: No. IMPRESSION: 1.Within the limitations of this exam, no distinct acute intra or extra-axial fluid collections are identified; however, a subtle acute hemorrhage cannot be excluded in the posterior fossa due to beamhardening artifact. 2.No evidence of acute fracture in the cervical, thoracic, or lumbarspine. 3.Please refer to the concurrent, dedicated body report for findings inthe chest, abdomen, and pelvis. > Dictated by Randy Garza DO (Managed Care Analyst), 04/27/2024 6:51 PM. Christa Sanders MD have personally reviewed and interpretedthis examination/study. > Interpreting Provider: Christa German MD on 04/27/2024 10:14PM William Obando MD CT ORDERABLES * CT THORACIC SPINE WO CONTRAST - T/L-spine trauma, spine fracture (04/27/2024 6:02 PM FACSIMILE 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) Anatomical Region Laterality Modality Spine Computed Tomogra phy 04/27/2024 5:41 PM FACSIMILE 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 Impressions 04/27/2024 10:14 PM FACSIMILE 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 IMPRESSION: 1.Within the limitations of this exam, no distinct acute intra or extra-axial fluid collections are identified; however, a subtle acute hemorrhage cannot be excluded in the posterior fossa due to beam hardening artifact. 2.No evidence of acute fracture in the cervical, thoracic, or lumbar spine. 3.Please refer to the concurrent, dedicated body report for findings in the chest, abdomen, and pelvis. > Dictated by Randy Garza DO (Managed Care Analyst), 04/27/2024 6:51 PM. Christa Sanders MD have personally reviewed and interpreted this examination/study. > Interpreting Provider: Christa German MD on 04/27/2024 10:14 PM Narrative 04/27/2024 10:14 PM FACSIMILE 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 PROCEDURE: CT HEAD WO CONTRAST, CT LUMBAR SPINE WO CONTRAST, CT THORACIC SPINE WO CONTRAST, CT CERVICAL SPINE WO CONTRAST, DATE/TIME OF EXAM: 04/27/2024 5:15 PM, LOCATION [facility] INDICATION: Trauma EXAMINATION: 1.Computed tomography (CT) of the head without contrast 2.CT of the cervical spine without contrast 3.CT of the thoracic spine without contrast 4.CT of the lumbar spine without contrast TECHNIQUE: CT of the head and cervical spine was performed without contrast according to standard protocol. Reformatted axial, sagittal, and coronal images of the thoracic and lumbar spine were obtained by the technologist from a concurrently performed body CT and sent to the workstation for review. CT dose reduction technique was used, including Automated Exposure Control. COMPARISON: No prior study is available for comparison at the time of this dictation. FINDINGS: Head: Limited evaluation of the posterior fossa due to beam hardening artifact. Within the limitations of this exam, no distinct acute intra- or extra-axial fluid collections are identified; however, a subtle acute hemorrhage cannot be excluded in the posterior fossa due to beam hardening artifact. There is mild cerebral volume loss with associated ex vacuo ventricular dilatation. The basilar cisterns are patent. No mass effect or midline shift is seen. The coleman-white matter differentiation is normal. There is vascular calcification of the carotid siphons. No acute calvarial fracture is identified. Other than bilateral cataract extractions, the orbits appear normal. There is mild paranasal sinus disease. The mastoid air cells are clear. No soft tissue abnormality is identified. Cervical spine: Postsurgical changes of an anterior cervical discectomy and fusion from C4 to C6. Minimal anterolisthesis of C3 on C4. The alignment is otherwise maintained. No acute fracture is identified. Other than advanced middle atlantoaxial joint osteoarthritis, the craniocervical junction appears normal. There is advanced degenerative disc disease. Posterior disc osteophyte complex most prominent at C6-C7. There are varying degrees of advanced facet osteoarthritis. There are varying degrees of advanced uncovertebral joint osteoarthritis with the same degree of neural foraminal stenosis at these levels. There is atherosclerotic calcification of the carotid bifurcations. Thoracic spine: The alignment is normal. Chronic anterior wedge deformity of the T12 vertebral body without significant height loss. No acute fracture identified. There is advanced degenerative disc disease, worse at T8-T9. No central canal stenosis is seen. There is mild facet osteoarthritis at multiple levels. There are varying degrees of neural foraminal stenosis at multiple levels. There is subsegmental atelectasis in the dependent portions of the lung bases. There is atherosclerotic calcification of the thoracic aorta and its branch vessels. Lumbar spine: Grade 1 retrolisthesis of L3 on L4. Vertebral bodies are normal in height without evidence of acute fracture. There is diffuse disc bulge at multiple levels. There is spinal canal narrowing most prominent at L4-L5. There is mild facet osteoarthritis at multiple levels. There are varying degrees of neural foraminal stenosis at multiple levels. There is atherosclerotic calcification of the abdominal aorta and its branch vessels. There are degenerative changes of the SI joints. Brain injury guidelines: Skull fracture: No Subdural hematoma: No subdural hematoma. Epidural hematoma: No epidural hematoma. Intraparenchymal hemorrhage: No intraparenchymal hemorrhage. Subarachnoid hemorrhage: No subarachnoid hemorrhage. Intraventricular hemorrhage: No. Midline shift: No. Procedure Note Christa German MD - 04/27/2024 PROCEDURE: CT HEAD WO CONTRAST, CT LUMBAR SPINE WO CONTRAST, CTTHORACIC SPINE WO CONTRAST, CT CERVICAL SPINE WO CONTRAST, DATE/TIME OF EXAM: 04/27/2024 5:15 PM, LOCATION [facility] INDICATION: Trauma EXAMINATION: 1.Computed tomography (CT) of the head without contrast 2.CT of the cervical spine without contrast 3.CT of the thoracic spine without contrast 4.CT of the lumbar spine without contrast TECHNIQUE: CT of the head and cervical spine was performed withoutcontrast according to standard protocol. Reformatted axial, sagittal, and coronal images of the thoracic and lumbar spine were obtained by thetechnologist from a concurrently performed body CT and sent to the workstation for review. CT dose reduction technique was used, including AutomatedExposure Control. COMPARISON: No prior study is available for comparison at the time ofthis dictation. FINDINGS: Head: Limited evaluation of the posterior fossa due to beam hardeningartifact. Within the limitations of this exam, no distinct acute intra- or extra-axial fluid collections are identified; however, a subtle acute hemorrhage cannot be excluded in the posterior fossa due to beamhardening artifact. There is mild cerebral volume loss with associated ex vacuo ventricular dilatation. The basilar cisterns are patent. No mass effector midline shift is seen. The coleman-white matter differentiation is normal. There is vascular calcification of the carotid siphons. No acutecalvarial fracture is identified. Other than bilateral cataract extractions, the orbits appear normal. There is mild paranasal sinus disease. The mastoid air cells are clear. No soft tissue abnormality is identified. Cervical spine: Postsurgical changes of an anterior cervical discectomy and fusion fromC4 to C6. Minimal anterolisthesis of C3 on C4. The alignment is otherwise maintained. No acute fracture is identified. Other than advanced middle atlantoaxial joint osteoarthritis, the craniocervical junction appears normal. There is advanced degenerative disc disease. Posterior disc osteophyte complex most prominent at C6-C7. There are varying degrees of advanced facet osteoarthritis. There are varying degrees of advanced uncovertebral joint osteoarthritis with the same degree of neuralforaminal stenosis at these levels. There is atherosclerotic calcification of the carotid bifurcations. Thoracic spine: The alignment is normal. Chronic anterior wedge deformity of the T12 vertebral body without significant height loss. No acute fracture identified. There is advanced degenerative disc disease, worse at T8-T9.No central canal stenosis is seen. There is mild facet osteoarthritis at multiple levels. There are varying degrees of neural foraminal stenosisat multiple levels. There is subsegmental atelectasis in the dependent portions of the lung bases. There is atherosclerotic calcification ofthe thoracic aorta and its branch vessels. Lumbar spine: Grade 1 retrolisthesis of L3 on L4. Vertebral bodies are normal inheight without evidence of acute fracture. There is diffuse disc bulge atmultiple levels. There is spinal canal narrowing most prominent at L4-L5. Thereis mild facet osteoarthritis at multiple levels. There are varying degreesof neural foraminal stenosis at multiple levels. There is atherosclerotic calcification of the abdominal aorta and its branch vessels. There are degenerative changes of the SI joints. Brain injury guidelines: Skull fracture: No Subdural hematoma: No subdural hematoma. Epidural hematoma: No epidural hematoma. Intraparenchymal hemorrhage: No intraparenchymal hemorrhage. Subarachnoid hemorrhage: No subarachnoid hemorrhage. Intraventricular hemorrhage: No. Midline shift: No. IMPRESSION: 1.Within the limitations of this exam, no distinct acute intra or extra-axial fluid collections are identified; however, a subtle acute hemorrhage cannot be excluded in the posterior fossa due to beamhardening artifact. 2.No evidence of acute fracture in the cervical, thoracic, or lumbarspine. 3.Please refer to the concurrent, dedicated body report for findings inthe chest, abdomen, and pelvis. > Dictated by Randy Garza DO (Managed Care Analyst), 04/27/2024 6:51 PM. IChrista MD have personally reviewed and interpretedthis examination/study. > Interpreting Provider: Christa German MD on 04/27/2024 10:14PM William Obando MD CT ORDERABLES * CT CERVICAL SPINE WO CONTRAST - C-Spine Trauma, Spine fracture (04/27/2024 6:02 PM FACSIMILE 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) Anatomical Region Laterality Modality Spine Computed Tomogra phy 04/27/2024 5:41 PM FACSIMILE 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 Impressions 04/27/2024 10:14 PM FACSIMILE 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 IMPRESSION: 1.Within the limitations of this exam, no distinct acute intra or extra-axial fluid collections are identified; however, a subtle acute hemorrhage cannot be excluded in the posterior fossa due to beam hardening artifact. 2.No evidence of acute fracture in the cervical, thoracic, or lumbar spine. 3.Please refer to the concurrent, dedicated body report for findings in the chest, abdomen, and pelvis. > Dictated by Randy Garza DO (Managed Care Analyst), 04/27/2024 6:51 PM. IChrista MD have personally reviewed and interpreted this examination/study. > Interpreting Provider: Christa German MD on 04/27/2024 10:14 PM Narrative 04/27/2024 10:14 PM FACSIMILE 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 PROCEDURE: CT HEAD WO CONTRAST, CT LUMBAR SPINE WO CONTRAST, CT THORACIC SPINE WO CONTRAST, CT CERVICAL SPINE WO CONTRAST, DATE/TIME OF EXAM: 04/27/2024 5:15 PM, LOCATION [facility] INDICATION: Trauma EXAMINATION: 1.Computed tomography (CT) of the head without contrast 2.CT of the cervical spine without contrast 3.CT of the thoracic spine without contrast 4.CT of the lumbar spine without contrast TECHNIQUE: CT of the head and cervical spine was performed without contrast according to standard protocol. Reformatted axial, sagittal, and coronal images of the thoracic and lumbar spine were obtained by the technologist from a concurrently performed body CT and sent to the workstation for review. CT dose reduction technique was used, including Automated Exposure Control. COMPARISON: No prior study is available for comparison at the time of this dictation. FINDINGS: Head: Limited evaluation of the posterior fossa due to beam hardening artifact. Within the limitations of this exam, no distinct acute intra- or extra-axial fluid collections are identified; however, a subtle acute hemorrhage cannot be excluded in the posterior fossa due to beam hardening artifact. There is mild cerebral volume loss with associated ex vacuo ventricular dilatation. The basilar cisterns are patent. No mass effect or midline shift is seen. The coleman-white matter differentiation is normal. There is vascular calcification of the carotid siphons. No acute calvarial fracture is identified. Other than bilateral cataract extractions, the orbits appear normal. There is mild paranasal sinus disease. The mastoid air cells are clear. No soft tissue abnormality is identified. Cervical spine: Postsurgical changes of an anterior cervical discectomy and fusion from C4 to C6. Minimal anterolisthesis of C3 on C4. The alignment is otherwise maintained. No acute fracture is identified. Other than advanced middle atlantoaxial joint osteoarthritis, the craniocervical junction appears normal. There is advanced degenerative disc disease. Posterior disc osteophyte complex most prominent at C6-C7. There are varying degrees of advanced facet osteoarthritis. There are varying degrees of advanced uncovertebral joint osteoarthritis with the same degree of neural foraminal stenosis at these levels. There is atherosclerotic calcification of the carotid bifurcations. Thoracic spine: The alignment is normal. Chronic anterior wedge deformity of the T12 vertebral body without significant height loss. No acute fracture identified. There is advanced degenerative disc disease, worse at T8-T9. No central canal stenosis is seen. There is mild facet osteoarthritis at multiple levels. There are varying degrees of neural foraminal stenosis at multiple levels. There is subsegmental atelectasis in the dependent portions of the lung bases. There is atherosclerotic calcification of the thoracic aorta and its branch vessels. Lumbar spine: Grade 1 retrolisthesis of L3 on L4. Vertebral bodies are normal in height without evidence of acute fracture. There is diffuse disc bulge at multiple levels. There is spinal canal narrowing most prominent at L4-L5. There is mild facet osteoarthritis at multiple levels. There are varying degrees of neural foraminal stenosis at multiple levels. There is atherosclerotic calcification of the abdominal aorta and its branch vessels. There are degenerative changes of the SI joints. Brain injury guidelines: Skull fracture: No Subdural hematoma: No subdural hematoma. Epidural hematoma: No epidural hematoma. Intraparenchymal hemorrhage: No intraparenchymal hemorrhage. Subarachnoid hemorrhage: No subarachnoid hemorrhage. Intraventricular hemorrhage: No. Midline shift: No. Procedure Note Christa German MD - 04/27/2024 PROCEDURE: CT HEAD WO CONTRAST, CT LUMBAR SPINE WO CONTRAST, CTTHORACIC SPINE WO CONTRAST, CT CERVICAL SPINE WO CONTRAST, DATE/TIME OF EXAM: 04/27/2024 5:15 PM, LOCATION [facility] INDICATION: Trauma EXAMINATION: 1.Computed tomography (CT) of the head without contrast 2.CT of the cervical spine without contrast 3.CT of the thoracic spine without contrast 4.CT of the lumbar spine without contrast TECHNIQUE: CT of the head and cervical spine was performed withoutcontrast according to standard protocol. Reformatted axial, sagittal, and coronal images of the thoracic and lumbar spine were obtained by thetechnologist from a concurrently performed body CT and sent to the workstation for review. CT dose reduction technique was used, including AutomatedExposure Control. COMPARISON: No prior study is available for comparison at the time ofthis dictation. FINDINGS: Head: Limited evaluation of the posterior fossa due to beam hardeningartifact. Within the limitations of this exam, no distinct acute intra- or extra-axial fluid collections are identified; however, a subtle acute hemorrhage cannot be excluded in the posterior fossa due to beamhardening artifact. There is mild cerebral volume loss with associated ex vacuo ventricular dilatation. The basilar cisterns are patent. No mass effector midline shift is seen. The coleman-white matter differentiation is normal. There is vascular calcification of the carotid siphons. No acutecalvarial fracture is identified. Other than bilateral cataract extractions, the orbits appear normal. There is mild paranasal sinus disease. The mastoid air cells are clear. No soft tissue abnormality is identified. Cervical spine: Postsurgical changes of an anterior cervical discectomy and fusion fromC4 to C6. Minimal anterolisthesis of C3 on C4. The alignment is otherwise maintained. No acute fracture is identified. Other than advanced middle atlantoaxial joint osteoarthritis, the craniocervical junction appears normal. There is advanced degenerative disc disease. Posterior disc osteophyte complex most prominent at C6-C7. There are varying degrees of advanced facet osteoarthritis. There are varying degrees of advanced uncovertebral joint osteoarthritis with the same degree of neuralforaminal stenosis at these levels. There is atherosclerotic calcification of the carotid bifurcations. Thoracic spine: The alignment is normal. Chronic anterior wedge deformity of the T12 vertebral body without significant height loss. No acute fracture identified. There is advanced degenerative disc disease, worse at T8-T9.No central canal stenosis is seen. There is mild facet osteoarthritis at multiple levels. There are varying degrees of neural foraminal stenosisat multiple levels. There is subsegmental atelectasis in the dependent portions of the lung bases. There is atherosclerotic calcification ofthe thoracic aorta and its branch vessels. Lumbar spine: Grade 1 retrolisthesis of L3 on L4. Vertebral bodies are normal inheight without evidence of acute fracture. There is diffuse disc bulge atmultiple levels. There is spinal canal narrowing most prominent at L4-L5. Thereis mild facet osteoarthritis at multiple levels. There are varying degreesof neural foraminal stenosis at multiple levels. There is atherosclerotic calcification of the abdominal aorta and its branch vessels. There are degenerative changes of the SI joints. Brain injury guidelines: Skull fracture: No Subdural hematoma: No subdural hematoma. Epidural hematoma: No epidural hematoma. Intraparenchymal hemorrhage: No intraparenchymal hemorrhage. Subarachnoid hemorrhage: No subarachnoid hemorrhage. Intraventricular hemorrhage: No. Midline shift: No. IMPRESSION: 1.Within the limitations of this exam, no distinct acute intra or extra-axial fluid collections are identified; however, a subtle acute hemorrhage cannot be excluded in the posterior fossa due to beamhardening artifact. 2.No evidence of acute fracture in the cervical, thoracic, or lumbarspine. 3.Please refer to the concurrent, dedicated body report for findings inthe chest, abdomen, and pelvis. > Dictated by aRndy Garza DO (Managed Care Analyst), 04/27/2024 6:51 PM. IChrista MD have personally reviewed and interpretedthis examination/study. > Interpreting Provider: Christa German MD on 04/27/2024 10:14PM William Obando MD CT ORDERABLES * XR CHEST 1VW PORTABLE (04/27/2024 5:23 PM FACSIMILE 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) Anatomical Region Laterality Modality Chest Digital Radiogra phy 04/27/2024 5:33 PM FACSIMILE 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 Narrative 04/27/2024 7:49 PM FACSIMILE 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 PROCEDURE: XR CHEST 1VW PORTABLE, DATE/TIME OF EXAM: 04/27/2024 5:23 PM, LOCATION [facility] INDICATION: Trauma COMPARISON: None. FINDINGS/IMPRESSION: Sternal wires are present with multiple fracture sites. Alignment appears appropriate. Low lung volumes bilaterally with bronchovascular crowding. Retrocardiac opacity may represent atelectasis. There is no pleural effusion or pneumothorax. The cardiomediastinal silhouette is normal. > Dictated by Randy Garza DO (Managed Care Analyst), 04/27/2024 5:35 PM. Felice Sanders have personally reviewed and interpreted this examination/study. > Interpreting Provider: Felice Keen on 04/27/2024 7:49 PM Procedure Note Felice Keen MD - 04/27/2024 PROCEDURE: XR CHEST 1VW PORTABLE, DATE/TIME OF EXAM: 04/27/2024 5:23PM, LOCATION [facility] INDICATION: Trauma COMPARISON: None. FINDINGS/IMPRESSION: Sternal wires are present with multiple fracture sites. Alignmentappears appropriate. Low lung volumes bilaterally with bronchovascular crowding. Retrocardiac opacity may represent atelectasis. There is no pleural effusion or pneumothorax. The cardiomediastinal silhouette is normal. > Dictated by Randy Garza DO (Managed Care Analyst), 04/27/2024 5:35 PM. Felice Sanders have personally reviewed and interpreted this examination/study. > Interpreting Provider: Felice Keen on 04/27/2024 7:49 PM William Obando MD DIAGNOSTIC IMAGING ORDERABLES * XR PELVIS 1 OR 2VW (04/27/2024 5:23 PM FACSIMILE 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) Anatomical Region Laterality Modality Pelvis Digital Radiogra phy 04/27/2024 5:35 PM FACSIMILE 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 Impressions 04/27/2024 7:49 PM FACSIMILE 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 IMPRESSION: No acute fracture identified. Report dictated by Randy Garza DO (residential finish carpenter). Felice Sanders have personally reviewed and interpreted this examination/study. > Interpreting Provider: Felice Keen on 04/27/2024 7:49 PM Narrative 04/27/2024 7:49 PM FACSIMILE 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 PROCEDURE: XR PELVIS 1 OR 2VW, DATE/TIME OF EXAM: 04/27/2024 5:23 PM, LOCATION [facility] INDICATION: Trauma Fracture suspected COMPARISON: None. FINDINGS: Multiple surgical miriam are noted in the pelvis. No acute fracture is identified. The femoral heads appear well-seated within their respective acetabula. The pubic symphysis is intact. Bone density and texture are normal. The sacroiliac joints are normal. Procedure Note Felice Keen MD - 04/27/2024 PROCEDURE: XR PELVIS 1 OR 2VW, DATE/TIME OF EXAM: 04/27/2024 5:23 PM, LOCATION [facility] INDICATION: Trauma Fracture suspected COMPARISON: None. FINDINGS: Multiple surgical miriam are noted in the pelvis. No acute fracture is identified. The femoral heads appear well-seated within their respective acetabula. The pubic symphysis is intact. Bone density and texture are normal. The sacroiliac joints are normal. IMPRESSION: No acute fracture identified. Report dictated by Randy Garza DO (residential finish carpenter). IFelice have personally reviewed and interpreted this examination/study. > Interpreting Provider: Felice Keen on 04/27/2024 7:49 PM William Obando MD DIAGNOSTIC IMAGING ORDERABLES * TEG 6 GLOBAL HEMOSTASIS W/ LYSIS (04/27/2024 5:21 PM FACSIMILE 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) Citrated Kaolin R (Reaction Time) 4.7 4.6 - 9.1 min 04/27/2024 6:30 PM FACSIMILE 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 [facility] Citrated Kaolin LY30 (Lysis) 0.0 0.0 - 2.6 % 04/27/2024 6:30 PM [facility] Citrated Functional Fibrinogen MA (Max Amplitude) 20.5 15.0 - 32.0 mm 04/27/2024 6:30 PM [facility] Citrated RapidTEG MA (Max Amplitude) 65.1 52.0 - 70.0 mm 04/27/2024 6:30 PM [facility] Blood BLOOD SPECIMEN / Unknown Venipuncture / Unknown 04/27/2024 5:21 PM FACSIMILE 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 04/27/2024 5:24 PM FACSIMILE 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 William Obando MD LAB - HEMATOLOGY OR DERABLES [facility] [address] [place] [id number], [facility] [phone] * (ABNORMAL) TEG 6S PLATELET MAPPING (04/27/2024 5:21 PM FACSIMILE 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) TEGPLM (Max Amplitude) Koalin 64.1 53.0 - 68.0 mm 04/27/2024 6:18 PM [facility] TEGPLM (Max Amplitude) ACTF 9.6 2.0 - 19.0 mm 04/27/2024 6:18 PM [facility] TEGPLM (Max Amplitude) ADP <10.0(L) 45.0 - 69.0 mm 04/27/2024 6:18 PM [facility] Comment:ADP MA below normal range. Inhibition present. TEGPLM (Max Amplitude) AA 45.6(L) 51.0 - 71.0 mm 04/27/2024 6:18 PM [facility] Comment:AA MA below normal r milana. Inhibition present. TEGPLM %Inhibition ADP 04/27/2024 6:18 PM [facility] Comment:1 or more values are outside of the TEG maximum reportable ranges, calculation cannot be determined. TEGPLM %Inhibition AA 33.9(H) 0.0 - 11.0 % 04/27/2024 6:18 PM [facility] TEGPLM %Aggregation ADP 04/27/2024 6:18 PM [facility] Comment:1 or more values are outside of the TEG maximum reportable ranges, calculation cannot be determined. TEGPLM % Aggregation AA 66.1(L) 89.0 - 100.0 % 04/27/2024 6:18 PM [facility] Blood BLOOD SPECIMEN / Unknown Venipuncture / Unknown 04/27/2024 5:21 PM FACSIMILE 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 04/27/2024 5:24 PM FACSIMILE 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 William Obando MD LAB - HEMATOLOGY OR DERABLES [facility] [address] [place] [id number], [facility] [phone] * TROPONIN-I HIGH SENSITIVE BASELINE + 1HR (04/27/2024 5:21 PM FACSIMILE 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) Pathologist [facility] Troponin I High Sensitive <3 <=35 ng/L 04/27/2024 6:03 PM FACSIMILE 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 [facility] Blood BLOOD SPECIMEN / Unknown Venipuncture / Unknown 04/27/2024 5:21 PM FACSIMILE 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 04/27/2024 5:28 PM FACSIMILE 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 Cierra Stevens MD LAB - CHEMISTRY JULIOCESAR BRIGGS [facility] [address] [place] [address], [facility] [phone] * (ABNORMAL) TRYPTASE (04/27/2024 5:21 PM FACSIMILE 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) [facility] Tryptase 58.7(H) <=10.9 ug/L 04/30/2024 12:53 PM FACSIMILE 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 [facility] ([facility]) Comment: Performed By: [facility] [address] [place] [address] Manufacturing Planner: Evaristo Townsend MD, PhD CLIA Number: [id number] Blood BLOOD SPECIMEN / Unknown Venipuncture / Unknown 04/27/2024 5:21 PM FACSIMILE 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 04/27/2024 5:23 PM FACSIMILE 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 Cierra Stevens MD LAB - CHEMISTRY JULIOCESAR BRIGGS Performing Organization Address City/[facility]/ZIP Co de Phone Number [facility]) [address] * (ABNORMAL) CBC W AUTO DIFFERENTIAL (04/27/2024 5:21 PM FACSIMILE 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) Pathologist [facility] WBC 18.6(H) 4.0 - 10.7 x10E9/L 04/27/2024 5:33 PM FACSIMILE 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 [facility] RBC Count 5.27 4.30 - 5.80 x10E12/L 04/27/2024 5:33 PM FACSIMILE 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 [facility] Hemoglobin 16.3 13.3 - 17.5 g/dL 04/27/2024 5:33 PM [facility] Hematocrit 49.3 38.7 - 51.1 % 04/27/2024 5:33 PM [facility] MCV 93.5 80.0 - 98.0 fL 04/27/2024 5:33 PM [facility] MCH 30.9 26.7 - 33.6 pg 04/27/2024 5:33 PM [facility] MCHC 33.1 31.7 - 36.3 g/dL 04/27/2024 5:33 PM [facility] RDW-CV 12.8 11.3 - 14.8 % 04/27/2024 5:33 PM [facility] Platelet Count 270 150 - 420 x10E9/L 04/27/2024 5:33 PM [facility] MPV 11.5(H) 7.8 - 11.4 fL 04/27/2024 5:33 PM [facility] Neutrophil % 70.4 41.0 - 74.0 % 04/27/2024 5:33 PM [facility] Lymphocyte % 21.7 17.0 - 47.0 % 04/27/2024 5:33 PM [facility] Monocyte % 6.5 3.0 - 11.0 % 04/27/2024 5:33 PM [facility] Eosinophil % 0.8 0.0 - 7.0 % 04/27/2024 5:33 PM [facility] Basophil % 0.2 0.0 - 1.6 % 04/27/2024 5:33 PM [facility] Immature Granulocytes % 0.4 0.0 - 1.0 % 04/27/2024 5:33 PM [facility] Neutrophil Absolute 13.10(H) 1.60 - 7.50 x10E9/L 04/27/2024 5:33 PM [facility] Lymphocyte Absolute 4.04 1.00 - 4.40 x10E9/L 04/27/2024 5:33 PM [facility] Monocyte Absolute 1.20(H) 0.15 - 1.00 x10E9/L 04/27/2024 5:33 PM [facility] Eosinophil Absolute 0.14 0.00 - 0.60 x10E9/L 04/27/2024 5:33 PM FACSIMILE 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 [facility] Basophil Absolute 0.03 0.00 - 0.13 x10E9/L 04/27/2024 5:33 PM FACSIMILE 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 [facility] Blood BLOOD SPECIMEN / Unknown Venipuncture / Unknown 04/27/2024 5:21 PM FACSIMILE 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 04/27/2024 5:28 PM FACSIMILE 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 William Obando MD LAB - HEMATOLOGY OR DERABLES Performing Organization Address [facility]/ZIP Co de Phone Number [address] [address], [facility] [phone] * ALCOHOL ETHYL BLOOD (04/27/2024 5:21 PM FACSIMILE 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) Ethanol (mg/dL) <10 <10 mg/dL 5:59 PM FACSIMILE 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 [facility] Ethanol Calculated (g/dL) <0.010 <=0.010 g/dL 04/27/2024 5:59 PM [facility] Blood BLOOD SPECIMEN / Unknown Venipuncture / Unknown 04/27/2024 5:21 PM FACSIMILE 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 04/27/2024 5:28 PM FACSIMILE 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 Narrative [facility] - 04/27/2024 5:59 PM FACSIMILE 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 Ethanol Interp <10: None Detected. Depression of PLUMBER: >100 mg/dl Potentially Critical: >250 mg/dl Potentially Fatal >400 mg/dl Ethanol in the patient's blood will contribute to the osmolar gap. Ethanol's contribution to the osmolar gap can be estimated by dividing the concentration of ethanol in mg/dL by 4.6. This test is for clinical use only and does not equal a JUDITH for legal purposes. William Obando MD LAB - CHEMISTRY ORD ERABLES Performing Organization Address [facility]/ZIP Co de Phone Number [address] [address], [place] [phone] * CARDIAC CATH (07/30/2019) Provider Unknown CARDIAC SERVICES ORD ERABLES * LAB MISC TEST (07/30/2019) Blood BLOOD SPECIMEN / Unknown Historical Provider MD LAB SEND OUT Care Teams Credit Risk Specialist Relationship Specialty Start Date End Date Bhanu Gusman MD [address] [place] [address] PCP - General 06/12/19
--- OUTSIDE RECORDS SUMMARY | 2024-08-23 11:00 | XMS_ITS | Encounter Summary ---
Author Name [facility] [facility] [place] [facility] [place] Address [address] [place] [address] Care Team Providers Care Impregnation Operator Name Role Phone DYLAN ARROYO Primary Care [...] PART B Aug 11, 2014 PART B [id number] [phone] INGRID BRIGID CASILLAS PATIENT MEDICARE (WNR) MEDICARE (M) PART B Aug 11, 2014 PART B [id number] INGRID BRIGID CASILLAS PATIENT MEDICARE (WNR) MEDICARE (M) PART A Dec 11, 2012 PART A [id number] INGRID CASILLASBRIGID PATIENT MEDICARE (WNR) MEDICARE (M) PART B Dec 11, 2012 PART B [id number] INGRID CASILLASBRIGID PATIENT MEDICARE (WNR) MEDICARE (M) PART A Dec 11, 2012 PART A [id number] [phone] BRIGID QUINTERO JR PATIENT MEDICARE (WNR) MEDICARE (M) PART A Dec 11, 2012 PART A [id number] BRIGID QUINTEOR JR PATIENT MEDICARE (WNR) MEDICARE (M) PART A Dec 11, 2012 PART A [id number] BRIGID QUINTERO JR PATIENT MEDICARE (WNR) MEDICARE (M) PART B Dec 11, 2012 PART B [id number] BRIGID QUINTERO JR PATIENT MEDICARE PART D (WNR) MEDICARE (M) PART D Jun 13, 2015 PART D [id number] BRIGID QUINTERO JR PATIENT MEDICARE PART D (WNR) MEDICARE (M) PART D Jun 13, 2015 PART D [id number] [phone] BRIGID QUINTERO JR PATIENT Selected Encounter This section includes the information on record at [place] for the Encounter. Date/Time Encounter Type Encounter Description Reason Provider Source May 28, 2024 12:47 PM EMERGENCY DEPT VISIT LOW [facility] EMERGENCY DEPT ICD-10-CM M25.562 Pain in left knee CIERRACLAUS Bibi Encounter Template Text not used by [place] Assessments - Encounter Diagnoses This section includes the primary and secondary diagnoses documented for the Encounter. Date/Time Primary/Secondary Diagnosis Diagnosis Name Provider Source May 28, 2024 03:17 PM PRIMARY Pain in left knee CLAUS FUCHS [facility] Vital Signs: All taken on the encounter date This section contains inpatient and outpatient Vital Signs collected on the date of the Encounter. Date/Time Temperature Pulse Blood Pressure Respiratory Rate SP02 Pain Height Weight Body Mass Index Source May 28, 2024 12:58 PM 97.9 76 125/72 16 4 [facility] Encounter Notes: All associated encounter notes This section contains the clinical notes associated to the Encounter. Date/Time Encounter Note(s) Provider Source May 28, 2024 03:00 PM PHYSICIAN EMERGENC Y DEPT NOTE: LOCAL TITLE: EMERGENCY DEPARTMENT ST STANDARD TITLE: PHYSICIAN EMERGENCY DEPT NOTE DATE OF NOTE: MAY 28, 2024@15:00 ENTRY DATE: MAY 28, 2024@15:00:26 AUTHOR: CLAUS FUCHS EXP COSIGNER: URGENCY: STATUS: COMPLETED TRIAGE CHIEF COMPLAINT: Knee pain HPI: Patient is a 74-year-old male presents to the ED to be evaluated for left knee pain which has been going on for the past 2 days. Patient denies recent fall. He reports he was fixing [employer] tree lights, bending over on his knees and he tried to stand up he heard a pop. He reports mild to moderate swelling to the left knee. Pain is 6 out of 10. He has been applying topical analgesics without relief. Denies fever/chills, nausea/vomiting. REVIEW OF SYSTEMS: See HPI for further details. All 10 systems reviewed and otherwise negative unless otherwise detailed herein. PAST MEDICAL HISTORY: 1) Coronary arteriosclerosis 2) Obstructive sleep apnea syndrome 3) Erectile dysfunction 4) Tobacco use 5) Diabetes mellitus 6) Tobacco use 7) Obesity 8) Exposure to potentially hazardous substance 9) Carcinoma in situ of bladder CURRENT MEDICATIONS: Active Outpatient Medications (including Supplies): Active Outpatient Medications Status 1) ACETAMINOPHEN 500MG TAB TAKE TWO TABLETS BY MOUTH ACTIVE FOUR TIMES A DAY FOR PAIN CAUTION: DO NOT EXCEED 4000MG PER DAY ACETAMINOPHEN (APAP) FROM ALL MEDS. 2) ATORVASTATIN CALCIUM 20MG TAB TAKE ONE TABLET BY ACTIVE MOUTH EVERY EVENING FOR CHOLESTEROL. REPORT ANY UNEXPLAINED MUSCLE PAIN/WEAKNESS TO PROVIDER. 3) CLOPIDOGREL BISULFATE 75MG TAB TAKE ONE TABLET BY ACTIVE MOUTH ONCE A DAY TO THIN BLOOD 4) DULOXETINE HCL 60MG EC CAP TAKE ONE CAPSULE BY MOUTH ACTIVE ONCE A DAY DO NOT ABRUPTLY DISCONTINUE MEDICATION. 5) EMPAGLIFLOZIN 25MG TAB TAKE ONE-HALF TABLET BY MOUTH ACTIVE ONCE A DAY 6) ICOSAPENT ETHYL 1GM CAP TAKE TWO CAPSULES BY MOUTH ACTIVE TWICE A DAY WITH MEALS FOR TRIGLYCERIDES 7) LIRAGLUTIDE (EQV-VICTOZA) 6MG/ML PEN 3ML INJECT 1.8MG HOLD UNDER THE SKIN ONCE A DAY FOR DIABETES 8) LIRAGLUTIDE (VICTOZA) 6MG/ML INJ PEN 3ML INJECT 1.8MG ACTIVE UNDER THE SKIN ONCE A DAY FOR DIABETES 9) METFORMIN HCL 1000MG TAB TAKE ONE TABLET BY MOUTH ACTIVE TWICE A DAY WITH MEALS FOR BLOOD SUGAR CONTROL. TAKE WITH FOOD. AVOID ALCOHOL. DISCONTINUE BEFORE GETTING XRAY DYE. 10) METOPROLOL SUCCINATE 200MG SA TAB TAKE ONE TABLET BY ACTIVE MOUTH ONCE A DAY FOR HEART/BLOOD PRESSURE. SWALLOW WHOLE, DO NOT CRUSH OR CHEW (TABLETS MAY BE CUT IN HALF). 11) MORPHINE SO4 IR 15MG TAB TAKE ONE-HALF TABLET BY ACTIVE MOUTH TWICE DAILY NEEDED FOR SEVERE PAIN MAY CAUSE CONSTIPATION. 12) NEEDLE,PEN 31G,5MM USE 1 NEEDLE UNDER THE SKIN ONCE A ACTIVE DAY 13) OMEPRAZOLE 20MG EC CAP TAKE ONE CAPSULE BY MOUTH ACTIVE EVERY MORNING TO LOWER STOMACH ACID. TAKE 30 MINUTES PRIOR TO FOOD. 14) OXYBUTYNIN CHLORIDE 10MG SA TAB TAKE ONE TABLET BY ACTIVE MOUTH ONCE A DAY FOR BLADDER. SWALLOW WHOLE, DO NOT CRUSH OR CHEW. 15) SACUBITRIL 97MG/VALSARTAN 103MG TAB TAKE 1 TABLET BY ACTIVE MOUTH TWICE A DAY FOR HEART 16) SPIRONOLACTONE 25MG TAB TAKE ONE TABLET BY MOUTH ONCE ACTIVE A DAY 17) TAMSULOSIN HCL 0.4MG CAP TAKE ONE CAPSULE BY MOUTH ACTIVE ONCE A DAY APPROXIMATELY 30 MINUTES AFTER THE SAME MEAL EACH DAY (FOR PROSTATE) Active Non-VA Medications Status 1) Non-VA CHOLECALCIFEROL (LOW DOSE VIT D) - (OTC) TAB ACTIVE BY MOUTH ONCE A DAY 2) Non-VA CYANOCOBALAMIN 1000MCG TAB 1000MCG BY MOUTH ACTIVE ONCE A DAY 3) Non-VA MAGNESIUM OXIDE 400MG TAB 400MG BY MOUTH ACTIVE 20 Total Medications I have reviewed the patient's medication list with the patient and/or his/her care-grill prep cook. Any medication discrepancies have been resolved. Patient will be provided with an updated list of his/her medication(s). SURGICAL HISTORY: not pertinent FAMILY HISTORY: not pertinent SOCIAL HISTORY: Social History Main Topics: Smoking status: 08/19/2017 Current Tobacco User Alcohol Use: not indorsed ____ Illicit Drug Use: not indorsed Sexual Activity: Other Topics of Concern: ALLERGIES: Review of patient's allergies indicates: AMOXIL, LISINOPRIL, DEFINITY PHYSICAL EXAM: VITAL SIGNS: 125/72 (05/28/2024 12:58)76 (05/28/2024 12:58)96% (02/03/2024 10:59)97.9 F [36.6 C] (05/28/2024 12:58)16 (05/28/2024 12:58)The OBJECT WEIGHT LAST 3 was NOT found...Contact IRM. MAThe OBJECT was NOT found...Contact IRM.PAIN ASSESSMENTThe OBJECT was NOT found...Contact IRM. Measurement DT PAIN 05/28/2024 12:58 4 CONSTITUTIONAL: No acute distress, Non-toxic appearance EXTREMITIES: Left knee; normal range of motion, Intact distal pulses, mild edema, mild tenderness LYMPHATIC: No LAD appreciated NEUROLOGIC: Alert & oriented x 3, Normal motor function, Normal gait, no ataxia, No focal deficits appreciated on cursory screening exam SKIN: Warm, Dry, No erythema, No rash LABS: RADIOLOGY: ECG IMPRESSION: ED COURSE & MEDICAL DECISION MAKING: Nursing notes, medications, vital signs, allergies and pertinent labs & imaging studies reviewed (see chart for details) with lab results reviewed with patient/family and radiology results reviewed with patient/family. Stable, alert, nontoxic, nonfocal with clinically apparent 74- year-old male presents to the ED to evaluate for left knee pain. Sprain versus strain. Low concern for meniscus/ligament tear. No concern for cellulitis or joint infection. Counseled on ice therapy and pain control. If symptoms do not improve within a week he would benefit from getting an MRI and follow-up with PCP. MEDICATIONS GIVEN IN ED: [ ] YES [X] NO DECISION to ADMIT / DISCHARGE TIME: 3 PM discharg eDISPOSITION CONDITION:[X] Improved [ ] Unchanged [ ] Deteriorated CLINICAL IMPRESSION: 1 -left knee pain 2 - 3 - DISCHARGE INSTRUCTIONS AND PATIENT-DIRECTED FOLLOW-UP RECOMMENDATIONS: DIET: regular ACTIVITY: ad yahir NEW MEDS: Tylenol, morphine IR MEDICATION RECONCILIATION: CONTINUE ALL PRESCRIBED MEDICATIONS DIRECTED. FOLLOW-UP WITH PRIMARY STAFF DEVELOPMENT NURSE/SPECIALIST: routine in 1-2 weeks if not improving, sooner if worse RETURN TO EMERGENCY: if any worries or concerns ADDITIONAL SIGNATURE PCP: [ ] YES [ ] NO [ ] not listed Active Outpatient Medications (including Supplies): Active Outpatient Medications Status 1) ACETAMINOPHEN 500MG TAB TAKE TWO TABLETS BY MOUTH ACTIVE FOUR TIMES A DAY FOR PAIN CAUTION: DO NOT EXCEED 4000MG PER DAY ACETAMINOPHEN (APAP) FROM ALL MEDS. 2) ATORVASTATIN CALCIUM 20MG TAB TAKE ONE TABLET BY ACTIVE MOUTH EVERY EVENING FOR CHOLESTEROL. REPORT ANY UNEXPLAINED MUSCLE PAIN/WEAKNESS TO PROVIDER. 3) CLOPIDOGREL BISULFATE 75MG TAB TAKE ONE TABLET BY ACTIVE MOUTH ONCE A DAY TO THIN BLOOD 4) DULOXETINE HCL 60MG EC CAP TAKE ONE CAPSULE BY MOUTH ACTIVE ONCE A DAY DO NOT ABRUPTLY DISCONTINUE MEDICATION. 5) EMPAGLIFLOZIN 25MG TAB TAKE ONE-HALF TABLET BY MOUTH ACTIVE ONCE A DAY 6) ICOSAPENT ETHYL 1GM CAP TAKE TWO CAPSULES BY MOUTH ACTIVE TWICE A DAY WITH MEALS FOR TRIGLYCERIDES 7) LIRAGLUTIDE (EQV-VICTOZA) 6MG/ML PEN 3ML INJECT 1.8MG HOLD UNDER THE SKIN ONCE A DAY FOR DIABETES 8) LIRAGLUTIDE (VICTOZA) 6MG/ML INJ PEN 3ML INJECT 1.8MG ACTIVE UNDER THE SKIN ONCE A DAY FOR DIABETES 9) METFORMIN HCL 1000MG TAB TAKE ONE TABLET BY MOUTH ACTIVE TWICE A DAY WITH MEALS FOR BLOOD SUGAR CONTROL. TAKE WITH FOOD. AVOID ALCOHOL. DISCONTINUE BEFORE GETTING XRAY DYE. 10) METOPROLOL SUCCINATE 200MG SA TAB TAKE ONE TABLET BY ACTIVE MOUTH ONCE A DAY FOR HEART/BLOOD PRESSURE. SWALLOW WHOLE, DO NOT CRUSH OR CHEW (TABLETS MAY BE CUT IN HALF). 11) MORPHINE SO4 IR 15MG TAB TAKE ONE-HALF TABLET BY ACTIVE MOUTH TWICE DAILY NEEDED FOR SEVERE PAIN MAY CAUSE CONSTIPATION. 12) NEEDLE,PEN 31G,5MM USE 1 NEEDLE UNDER THE SKIN ONCE A ACTIVE DAY 13) OMEPRAZOLE 20MG EC CAP TAKE ONE CAPSULE BY MOUTH ACTIVE EVERY MORNING TO LOWER STOMACH ACID. TAKE 30 MINUTES PRIOR TO FOOD. 14) OXYBUTYNIN CHLORIDE 10MG SA TAB TAKE ONE TABLET BY ACTIVE MOUTH ONCE A DAY FOR BLADDER. SWALLOW WHOLE, DO NOT CRUSH OR CHEW. 15) SACUBITRIL 97MG/VALSARTAN 103MG TAB TAKE 1 TABLET BY ACTIVE MOUTH TWICE A DAY FOR HEART 16) SPIRONOLACTONE 25MG TAB TAKE ONE TABLET BY MOUTH ONCE ACTIVE A DAY 17) TAMSULOSIN HCL 0.4MG CAP TAKE ONE CAPSULE BY MOUTH ACTIVE ONCE A DAY APPROXIMATELY 30 MINUTES AFTER THE SAME MEAL EACH DAY (FOR PROSTATE) Active Non-VA Medications Status 1) Non-VA CHOLECALCIFEROL (LOW DOSE VIT D) - (OTC) TAB ACTIVE BY MOUTH ONCE A DAY 2) Non-VA CYANOCOBALAMIN 1000MCG TAB 1000MCG BY MOUTH ACTIVE ONCE A DAY 3) Non-VA MAGNESIUM OXIDE 400MG TAB 400MG BY MOUTH ACTIVE 20 Total Medications /quiana/ CLAUS FUCHS M.D. EMERGENCY MEDICINE PHYSICIAN Signed: 05/28/2024 15:09 CLAUS FUCHS [facility] May 28, 2024 02:56 PM ACCOUNTING OF DISC LOSURES NOTE: LOCAL TITLE: STATE PRESCRIPTION DRUG MONITORING PROGRAM STANDARD TITLE: ACCOUNTING OF DISCLOSURES NOTE DATE OF NOTE: MAY 28, 2024@14:56:40 ENTRY DATE: MAY 28, 2024@14:56:40 AUTHOR: CLAUS FUCHS EXP COSIGNER: URGENCY: STATUS: COMPLETED This PDMP query was submitted by Claus Fuchs MD. The clinical justification for this PDMP query is to review controlled substances prescribed outside of the [facility], and any additional information that may become available, as an important component of standard clinical care, and in accordance with [facility] policy. Patient information was shared with the PDMP [place]. No prescription(s) for controlled substances outside the [facility] were found in the last 90 days. /priya FUCHS M.D. 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 pt having pain and states knee is swollen. no redness noted in triage, mild swelling. Level of Consciousness (AVPU): Alert = Appears aware of and responsive to the environment on their own. Follows commands, opens eyes spontaneously, and tracks objects. Vital Signs: Temperature 97.9 F (36.6 C) Pulse 76 Respirations 16 Blood Pressure 125/72 Pulse Oximetry 94 Room Air National Early Warning Score (NEWS): The NEWS total is 1. 1. Temperature (C/F): Score = 0 36.1 - 38.0 C (96.9 - 100.4 F) 2. Pulse: Score = 0 51-90 3. Respirations: Score = 0 12-20 4. Blood Pressure (Only Systolic BP, mmHg): Score = 0 111-219 5. Pulse Oximetry: Score = 1 94% - 95% 6. Supplemental oxygen in use: Score = 0 No 7. AVPU: Score = 0 Alert Pain: No pain Pain Score: 4 Suicide Screen: [place] Suicide Severity Rating Scale (C-SSRS) screener 1. Over the past month, have you wished you were or wished you could go to sleep and not wake up? No 2. Over the past month, have you had any actual thoughts of killing yourself? No 3. Over the past month, have you been thinking about how you might do this? Response not required due to responses to other questions. 4. Over the past month, have you had these thoughts and had some intention of acting on them? Response not required due to responses to other questions. 5. Over the past month, have you started to work out or worked out the details of how to kill yourself? Response not required due to responses to other questions. 6. If yes, at any time in the past month did you intend to carry out this plan? Response not required due to responses to other questions. 7. In your lifetime, have you ever done anything, started to do anything, or prepared to do anything to end your life (for example, collected pills, obtained a gun, gave away valuables, went to the roof but didn't jump)? No 8. If YES, was this within the past 3 months? Response not required due to responses to other questions. Emergency Severity Index (TANIA) level: Level 4 Previously documented allergies: AMOXIL, LISINOPRIL, DEFINITY Current Problems: 1) Coronary arteriosclerosis 2) Obstructive sleep apnea syndrome 3) Erectile dysfunction 4) Tobacco use 5) Diabetes mellitus 6) Tobacco use 7) Obesity 8) Exposure to potentially hazardous substance 9) Carcinoma in situ of bladder /es/ GELACIO TALLEY BSN RN REGISTERED NURSE Signed: 05/28/2024 12:59 GELACIO TALLEY [facility]
--- OUTSIDE RECORDS SUMMARY | 2024-08-23 11:00 | XMS_ITS | Encounter Summary ---
Author Name [facility] [facility] [place] Address [address] [place] [address] Care Team Providers Care Strategic Partnership Manager Name Role Phone JOSEFINA GATICA Primary Care Provider Unavailabl e Insurance Providers: [...] PART B Aug 11, 2014 PART B [id number] INGRID CASILLASBRIGID PATIENT MEDICARE (WNR) MEDICARE (M) PART B Aug 11, 2014 PART B [id number] INGRID BRIGID CASILLAS PATIENT MEDICARE (WNR) MEDICARE (M) PART A Dec 11, 2012 PART A [id number] INGRID BRIGID CASILLAS PATIENT MEDICARE (WNR) MEDICARE (M) PART B Dec 11, 2012 PART B [id number] INGRID CASILLASBRIGID PATIENT MEDICARE (WNR) MEDICARE (M) PART A Dec 11, 2012 PART A [id number] [phone] BRIGID QUINTERO JR PATIENT MEDICARE (WNR) MEDICARE (M) PART A Dec 11, 2012 PART A [id number] [phone] BRIGID QUINTERO JR PATIENT MEDICARE (WNR) MEDICARE (M) PART A Dec 11, 2012 PART A [id number] BRIGID QUINTERO JR PATIENT MEDICARE (WNR) MEDICARE (M) PART B Dec 11, 2012 PART B [id number] BRIGID QUINTERO JR PATIENT MEDICARE PART D (WNR) MEDICARE (M) PART D Jun 13, 2015 PART D [id number] BRIGID QUINTERO JR PATIENT MEDICARE PART D (WNR) MEDICARE (M) PART D Jun 13, 2015 PART D [id number] [phone] BRIGID QUINTERO JR PATIENT Selected Encounter This section includes the information on record at [place] for the Encounter. Date/Time Encounter Type Encounter Description Reason Provider Source Feb 03, 2024 11:00 AM OFFICE O/P EST MOD 30 MIN PRIMARY CARE/MEDICINE ICD-10-CM Z72.0 Tobacco use JOSEFINA GATICA [facility] Encounter Template Text not used by [place] Assessments - Encounter Diagnoses This section includes the primary and secondary diagnoses documented for the Encounter. Date/Time Primary/Secondary Diagnosis Diagnosis Name Provider Source Feb 03, 2024 11:39 AM PRIMARY Tobacco use [facility] Feb 03, 2024 11:39 AM SECONDARY Athscl heart disease of [place] coronary artery w/o ang pctrs [facility] Feb 03, 2024 11:39 AM SECONDARY Carcinoma in situ of bladder [facility] Plan of Treatment: Future Appointments (+ 6 months) and Future Tests (+/- 45 days) The Plan of Treatment section includes future care activities for the patient from all [place] treatmentfacilities. This section includes future appointments and future orders which are active, pending or scheduled. Future Appointments This section includes appointments that were scheduled to occur 6 months from the date of the Encounter, up to a maximum of 20 appointments. The data comes from all [place] treatment facilities. Appointment Date/Time Appointment Type Appointme nt Facility Name Feb 10, 2024 01:30 PM AMBULATORY - SURGERY [facility] May 28, 2024 12:47 PM AMBULATORY - MEDICINE [facility] Active, Pending, and Scheduled Orders This section includes a listing of several types of active, pending, and scheduled orders, including clinic medications orders, diagnostic test orders, procedure orders and consult orders; where the start date of the order is 45 days before the date of the Encounter or 45 days after the date of theEncounter. The data comes from all [place] treatment facilities. Test Date/Time Test Type Test Details Facility Name Feb 03, 2024 12:00 AM Laboratory - Chemi stry Order MICRAL/CREAT PROFILE (STL) URINE YELLOW [facility] Feb 03, 2024 12:00 AM Laboratory - Chemi stry Order OCCULT BLOOD FIT X1 SCREEN STOOL FECES [facility] Feb 03, 2024 12:00 AM Laboratory - Chemi stry Order URINALYSIS (STL-PB) URINE [facility] Lab Results: +/- 30 days of the encounter This section includes the Chemistry and Hematology Lab Results on record with [place] for the patient. Radiology Reports and Pathology Reports are provided separately, in subsequent sections. Lab Results This section contains the Chemistry/Hematology Results that were resulted 30 days before or 30 daysafter the date of the Encounter. Date/Time Source Result Type Result - Unit Interpretation Reference Range Comment Feb 03, 2024 11:[address] [facility] HGA1C Specimen Type: BLOOD No comment entered. Ordering Provider: TANGELA GATICA EN Report Released Date/Time: Feb 03, 2024 11:27 AM Reporting Lab: [facility] [id number] Performing Lab: [facility] [id number] HGA1C 7.1 H 4.0-6.0 Feb 03, 2024 11:[address] [facility] VITAMIN D, 25-HYDROXY Specimen Type: SERUM No comment entered. Ordering Provider: TANGELA GATICA EN Report Released Date/Time: Feb 03, 2024 11:27 AM Reporting Lab: [facility] [address] [place] [address] Performing Lab: [facility] [place] [address] VITAMIN D, 25-HYDROXY 41.2 ng/mL 30-96 Feb 03, 2024 11:[address] [facility] LIPID PANEL (STL) Specimen Type: PLASMA Comment: No hemolysis noted. Ordering Provider: TANGELA GATICA Report Released Date/Time: Feb 03, 2024 11:27 AM Reporting Lab: [facility] [place] [address] Performing Lab: [facility] [place] [address] CHOLESTEROL 101 mg/dL 0-200 TRIGLYCERIDE 126 mg/dL 0-150 CALCULATED LDL 46 mg/dL See Interp HDL(New) 30 mg/dL L > 40 Feb 03, 2024 11:[address] [facility] TSH (MA-PB) Specimen Type: SERUM No comment entered. Ordering Provider: TANGELA GATICA Report Released Date/Time: Feb 03, 2024 11:27 AM Reporting Lab: [facility] [place] [address] Performing Lab: [facility] [place] [address] TSH 0.426 u[IU]/mL L 0.470-5.000 FREE T4(REFLEX) 1.02 ng/mL 0.70-1.48 Feb 03, 2024 11:[address] [facility] COMPREHENSIVE METABOLIC PANEL Specimen Type: PLASMA Comment: No hemolysis noted. Ordering Provider: TANGELA GATICA Report Released Date/Time: Feb 03, 2024 11:27 AM Reporting Lab: [facility] [place] [address] Performing Lab: [facility] [place] [address] CREATININE 1.22 mg/dL 0.70-1.30 UREA NITROGEN 16.8 [...] 61.44 >60 Feb 03, 2024 11:42 AM [facility] CBC Specimen Type: BLOOD No comment entered. Ordering Provider: TANGELA GATICA EN Report Released Date/Time: Feb 03, 2024 11:27 AM Reporting Lab: [facility] [id number] Performing Lab: [facility] [id number] WBC 7.7 10*3/uL 3.6-11.2 RBC 4.25 10*6/uL [...] 10*3/uL 0.00-0.60 BASOPHILS, ABSOLUTE 0.03 10*3/uL 0.00-0.20 Vital Signs: All taken on the encounter date This section contains inpatient and outpatient Vital Signs collected on the date of the Encounter. Date/Time Temperature Pulse Blood Pressure Respiratory Rate SP02 Pain Height Weight Body Mass Index Source Feb 03, 2024 10:59 AM 97.7 78 108/63 20 96 0 223 35 [facility] Social History: Smoking Status (Most current) and Tobacco Use (All prior to encounter date) This section includes the most current, and the historical, smoking and tobacco- related health factors from the [place] facility where the Encounter took place. Current Smoking Status This section includes the most current smoking, or tobacco-related health factor, from the [place] facility where the Encounter took place. Date/Time Current Smoking Status Comment Facil ity Feb 03, 2024 11:00 AM VA-TOBACCO NEVER USED [facility] Tobacco Use History This section includes a history of the smoking, or tobacco-related health factors, that were collected on or before the date of the Encounter. The data comes from the [place] facility where the Encounter took place. Date/Time Smoking Status/Tobacco Use Comment F acility Feb 03, 2023 03:00 PM VA-TOBACCO DOES[place] USE [place] [address] [facility] Feb 03, 2023 03:00 PM VA-TOBACCO USE > 1 5 LESS THAN [address] [facility] Feb 03, 2023 03:00 PM VA-TOBACCO USE ADVICE [facility] Feb 03, 2023 03:00 PM VA-TOBACCO USE LICENSED OCCUPATIONAL THERAPY ASSISTANT NO [facility] Feb 03, 2023 03:00 PM VA-TOBACCO USE MED NO [facility] Feb 03, 2023 03:00 PM VA-TOBACCO USER EVERY DAY [facility] Aug 18, 2021 11:00 AM VA-TOBACCO DOESNT USE WI [address] [facility] Aug 18, 2021 11:00 AM VA-TOBACCO USE [address] [facility] Aug 18, 2021 11:00 AM VA-TOBACCO USE ADVICE [facility] Aug 18, 2021 11:00 AM VA-TOBACCO USE LICENSED OCCUPATIONAL THERAPY ASSISTANT NO [facility] Aug 18, 2021 11:00 AM VA-TOBACCO USE MED NO [facility] Aug 18, 2021 11:00 AM VA-TOBACCO USER EVERY DAY [facility] Aug 19, 2020 03:30 PM VA-TOBACCO DOESNT USE WI [address] [facility] Aug 19, 2020 03:30 PM VA-TOBACCO USE [address] [facility] Aug 19, 2020 03:30 PM VA-TOBACCO USE ADVICE [facility] Aug 19, 2020 03:30 PM VA-TOBACCO USE LICENSED OCCUPATIONAL THERAPY ASSISTANT NO [facility] Aug 19, 2020 03:30 PM VA-TOBACCO USE MED NO [facility] Aug 19, 2020 03:30 PM VA-TOBACCO USER EVERY DAY [facility] Aug 14, 2019 10:00 AM VA-TOBACCO DOESNT USE WI [address] [facility] Aug 14, 2019 10:00 AM VA-TOBACCO USE [address] [facility] Aug 14, 2019 10:00 AM VA-TOBACCO USE ADVICE [facility] Aug 14, 2019 10:00 AM VA-TOBACCO USE LICENSED OCCUPATIONAL THERAPY ASSISTANT NO [facility] Aug 14, 2019 10:00 AM VA-TOBACCO USE MED NO [facility] Aug 14, 2019 10:00 AM VA-TOBACCO USER SOME DAYS [facility] Jul 11, 2018 12:59 PM VA-TOBACCO DOESNT USE WI [address] [facility] Jul 11, 2018 12:59 PM VA-TOBACCO USE [address] [facility] Jul 11, 2018 12:59 PM VA-TOBACCO USE ADVICE [facility] Jul 11, 2018 12:59 PM VA-TOBACCO USE LICENSED OCCUPATIONAL THERAPY ASSISTANT NO [facility] Jul 11, 2018 12:59 PM VA-TOBACCO USE MED NO [facility] Jul 11, 2018 12:59 PM VA-TOBACCO USER EVERY DAY [facility] Aug 09, 2017 09:08 AM CURRENT TOBACCO USER [facility] Aug 09, 2017 09:08 AM CURRENT TOBACCO US ER (NOT READY TO QUIT) [facility] Aug 09, 2017 09:08 AM SMOKELESS TOBACCO AMOUNT/LENGTH V15 dip daily [facility] Aug 09, 2017 09:08 AM TOBACCO CESSATION REFERRAL DECLINED [facility] Aug 09, 2017 09:08 AM TOBACCO MEDS OFFER ED BUT DECLINED [facility] Aug 09, 2017 09:08 AM TOBACCO USER OFFERED MEDS [facility] Jan 31, 2017 09:03 AM LIFETIME NON-USER OF TOBACCO [facility] Sep 26, 2015 11:32 AM CURRENT TOBACCO USER [facility] October 14, 2014 08:51 AM LIFETIME NON-USER OF TOBACCO [facility] Encounter Notes: All associated encounter notes This section contains the clinical notes associated to the Encounter. Date/Time Encounter Note(s) Provider Source Feb 03, 2024 04:13 PM PHYSICIAN LETTERS: LOCAL TITLE: TEST RESULT GENERAL LETTER ST STANDARD TITLE: PHYSICIAN LETTERS DATE OF NOTE: FEB 03, 2024@16:13 ENTRY DATE: FEB 03, 2024@16:13:08 AUTHOR: JOSEFINA GATICA COSIGNER: URGENCY: STATUS: COMPLETED [facility] [address] [place] [address] FEB 03, 2024 BRIGID QUINTERO [address] [place], [place] [address] Dear Brigid Quintero, I would like to update you on your recent test results. LIPID PROFILE - High cholesterol and triglycerides (lipids) are risk factors for heart disease. Your cholesterol should fall between 140 and 200, and your triglycerides levels should be less than or equal to 150. HDL is the good cholesterol and should ideally be greater than 40. LDL is the bad cholesterol and optimal levels should be less than 100 (near optimal is between 100 and 129). TRIGLYCERIDE 126 mg/dL 02/03/2024 11:42 CHOLESTEROL 101 mg/dL 02/03/2024 11:42 HDL(New) 30 L mg/dL 02/03/2024 11:42 CALCULATED LDL 46 mg/dL 02/03/2024 11:42 No DIRECT LDL EO data found These readings are within normal limits. HEMOGLOBIN A1C - Gives us information about your diabetes (sugar or glucose) control over the past 3 months. Your target is to keep your A1C below 6 %. HGA1C 7.1 H % 02/03/2024 11:42 These results are abnormal. please share this with your provider CBC - A complete blood count (CBC) gives important information about the kinds and numbers of cells in the blood, especially red blood cells, white blood cells, and platelets. HGB 13.3 g/dL 02/03/2024 11:42 HEMATOCRIT 39.6 % (02/03/24 11:42) PLT 213 10*3/uL 02/03/2024 11:42 WHITE BLOOD COUNT 7.7 10*3/uL (02/03/24 11:42) These readings are within normal limits. CHEM 7 - This is important information about the current status of your kidneys, liver, and electrolyte and acid/base balance as well as of your blood sugar and blood proteins. SODIUM 138 mEq/L 02/03/2024 11:42 POTASSIUM 4.9 mEq/L 02/03/2024 11:42 CHLORIDE 103 mEq/L 02/03/2024 11:42 UREA NITROGEN 16.8 mg/dL 02/03/2024 11:42 CREATININE 1.22 mg/dL 02/03/2024 11:42 CALCIUM 9.4 mg/dL 02/03/2024 11:42 CARBON DIOXIDE 27 mEq/L 02/03/2024 11:42 GLUCOSE 142 H mg/dL 02/03/2024 11:42 EGFR (CKD-EPI 2020) 61.44 02/03/2024 11:42 These readings are within normal limits. LIVER FUNCTION PANEL - These are tests for liver function: PROTEIN 6.9 g/dL 02/03/2024 11:42 ALBUMIN 4.0 g/dL 02/03/2024 11:42 TOTAL BILIRUBIN 0.3 mg/dL 02/03/2024 11:42 ALKALINE PHOSPHATASE 97 U/L 02/03/2024 11:42 AST/SGOT 17 U/L 02/03/2024 11:42 ALT/SGPT 12 U/L 02/03/2024 11:42 These readings are within normal limits. TSH - Thyroid-stimulating hormone (also known as TSH or thyrotropin) is a peptide hormone synthesized and secreted by thyrotrope cells in the anterior pituitary gland, which regulates the endocrine function of the thyroid gland. TSH TSH 0.426 L uIU/mL 02/03/2024 11:42 These results are abnormal. this is just slightly low.please let your provider know. VITAMIN D - Helps promote the proper utilization of calcium and phosphorus, thereby producing proper bone maintenance. VITAMIN D, 25-HYDROXY 41.2 ng/mL 02/03/2024 11:42 These readings are within normal limits. FUTURE APPOINTMENTS: 02/10/2024 13:30 HEBER-OPTOMETRY 5 Sincerely, Josefina Gatica PA-C PA-C INGRID,JOSEFINA SINGH JR [facility] Feb 03, 2024 11:03 AM PRIMARY CARE NOTE: LOCAL TITLE: PRIMARY CARE PROVIDER ESTABLISHED VISIT ST STANDARD TITLE: PRIMARY CARE NOTE DATE OF NOTE: FEB 03, 2024@11:03 ENTRY DATE: FEB 03, 2024@11:03:15 AUTHOR: JOSEFINA GATICA EXP COSIGNER: URGENCY: STATUS: COMPLETED ESTABLISHED PATIENT CUAX-MW-VSUN: REASON FOR VISIT/CHIEF COMPLAINT: yearly appt HPI: Mr Quintero is coming in fora scheduled visit. he reports he was diagnosed with bladder cancer since he was last here. he states he received treatment and follows up with his private . he reports otherwise he is good. Private PCP Dr Ismael Guy [place], [place] Private steel fabricator Dr Cristian Javier cardio, Dr Will Stanley EP [address], [place] [address] Zuniga [facility] Private [facility] 1) ED - has script for cialis but has not gotten it yet due to daniel. 2) CAD and CHF, [place] 2012, CABGx 2 - sees steel fabricator, PT[facility] 07/2019 3) depression - taking cymbalta 4) overactive bladder/bladder CA - sees private dr Zuniga. 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 5) GERD - controlled on omeprazole 6) tobacco use - hx of chewing tobacco consumption since 1984. Decreased consumption from 1 can per day to 2 cans per week. 7) MICA - 12cm h2o uses regularly. 8) DJD - multiple joint 9) BPH finasteride 5mg with tamsulosisin, expected to use 4 clamps to pull prostate away from bladder. 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 Health maintenance: PSA: 0.450 02/2021 ALBER: declined 10/2014 colonoscopy: 07/2018, does NOT want a c-scope occult blood: DM: HGB A1c - 8.9 08/2019 eye exam zoster - Due 2016 pneumovac - 2014,PPSV23 due 2017 tetanus - 2015 PSHx: CABG x 2, gallbladder, tonsills, wisdom teeth, C.spine C4-5-6 fusion FHx: CAD, Soc Hx: and lives in house and worked in a [employer]. no etoh. no drugs. 1 can of chewing tobacco per week. ROS constitutional: no Fevers or chills; Positive for headache;Positive for nausea vision/hearing: Bilateral hearing aids, +glasses ENT: no dentures cardio: Positive for chest pain yesterday at 3:00 a.m. Pulm: no cough, no congestion, no shortness of breath; Positive for labored breathing GI: +N/V, +diarrhea,+GERD : no hematuria, no dysuria, +Polyuria M/S: + arthritic pain neuro: no hx of CVA Endo: no diabetes, no thyroid disease ALLERGIES: AMOXIL, LISINOPRIL, DEFINITY ALLERGY REVIEW: Allergy list reviewed and remains current. MEDICATION RECONCILIATION: I have reviewed the patient's medication list with the patient and/or his/her care-stage technician. Handwritten corrections, additions and/or deletions were made to the list. Corrected Outpatient Medication List was provided to the patient/caregiver. Active Outpatient Medications (including Supplies): Active Outpatient Medications Status 1) ATORVASTATIN CALCIUM 20MG TAB TAKE ONE TABLET BY ACTIVE MOUTH EVERY EVENING FOR CHOLESTEROL. REPORT ANY UNEXPLAINED MUSCLE PAIN/WEAKNESS TO PROVIDER. 2) CLOPIDOGREL BISULFATE 75MG TAB TAKE ONE TABLET BY ACTIVE MOUTH ONCE A DAY TO THIN BLOOD 3) DULOXETINE HCL 60MG EC CAP TAKE ONE CAPSULE BY MOUTH ACTIVE ONCE A DAY DO NOT ABRUPTLY DISCONTINUE MEDICATION. 4) EMPAGLIFLOZIN 25MG TAB TAKE ONE-HALF TABLET BY MOUTH ACTIVE ONCE A DAY 5) ICOSAPENT ETHYL 1GM CAP TAKE TWO CAPSULES BY MOUTH ACTIVE TWICE A DAY WITH MEALS FOR TRIGLYCERIDES 6) LIRAGLUTIDE (VICTOZA) 6MG/ML INJ PEN 3ML INJECT 1.8MG ACTIVE UNDER THE SKIN ONCE A DAY FOR DIABETES 7) METFORMIN HCL 1000MG TAB TAKE ONE TABLET BY MOUTH ACTIVE TWICE A DAY WITH MEALS FOR BLOOD SUGAR CONTROL. TAKE WITH FOOD. AVOID ALCOHOL. DISCONTINUE BEFORE GETTING XRAY DYE. 8) METOPROLOL SUCCINATE 200MG SA TAB TAKE ONE TABLET BY ACTIVE MOUTH ONCE A DAY FOR HEART/BLOOD PRESSURE. SWALLOW WHOLE, DO NOT CRUSH OR CHEW (TABLETS MAY BE CUT IN HALF). 9) OMEPRAZOLE 20MG EC CAP TAKE ONE CAPSULE BY MOUTH ACTIVE EVERY MORNING TO LOWER STOMACH ACID. TAKE 30 MINUTES PRIOR TO FOOD. 10) OXYBUTYNIN CHLORIDE 10MG SA TAB TAKE ONE TABLET BY ACTIVE MOUTH ONCE A DAY FOR BLADDER. SWALLOW WHOLE, DO NOT CRUSH OR CHEW. 11) PREDNISOLONE ACETATE 1% OPH SUSP INSTILL 1 DROP IN ACTIVE RIGHT EYE FOUR TIMES A DAY FOR EYE INFLAMMATION 12) SACUBITRIL 97MG/VALSARTAN 103MG TAB TAKE 1 TABLET BY ACTIVE MOUTH TWICE A DAY FOR HEART 13) SPIRONOLACTONE 25MG TAB TAKE ONE TABLET BY MOUTH ONCE ACTIVE A DAY 14) TAMSULOSIN HCL 0.4MG CAP TAKE ONE CAPSULE [...] OXIDE 400MG TAB 400MG BY MOUTH ACTIVE 17 Total Medications Temperature: 97.7 F [36.5 C] (02/03/2024 10:59) Blood Pressure: 108/63 (02/03/2024 10:59) Pulse: 78 (02/03/2024 10:59) Respirations: 20 (02/03/2024 10:59) General: A&Ox3, pleasant, no distress HEENT: ears - R canal cerumen impaction L canal cerumen impaction nares - no secretions, patent oropharynx - no errythema or exudates noted neck: supple, no cervical LAD palpated heart: S1, S2, regular lungs: B CTA, no wheezes/crackles abd: soft ext: no calf tenderness, non edema Musculoskeletal: no pain on palpation, no crepitus, BUE - AROM WFL BLE - AROM WFL neuro: no gait abnormality a/p 1) bladder CA -per private 2) colon ca screening -will do fit 3) tobacco use -encourage cessation, sees a dentist 4) labs ordered rtc 1year f2f PREVENTION & SCREENING: ALCOHOL: Clinical Reminder not due now or within a month BLOOD PRESSURE: Clinical Reminder not due now or within a month HEMOGLOBIN A1C: Clinical Reminder not due now or within a month Follow Up Colonoscopy: Colonoscopy is due based on information available to this reminder. FIT test ordered PAVE Foot Check: A complete foot check was completed at this encounter. VISUAL INSPECTION: Includes inspection for skin breaks, deformity, erythema, trauma, pallor on elevation, dependent rubor, nail deformities, extensive callus and pitting edema. Visual exam results: Normal PEDAL PULSES: Includes palpation of dorsalis and posterior tibial pulses and signs/symptoms of vascular compromise like pain, pallor, parasthesia or paralysis. Present (even if diminished) SENSORY CHECK: Includes 10 gram Monofilament (Lopez-Chucky) test of sensation. Intact (Greater than or equal to 80% of sites checked) Abnormal (Less than 80% of sites checked): Intact LOW-RISK: LOW RISK INFORMATION PROVIDED: 1. Advised patient not to walk barefoot. 2. Explained the importance of daily foot checks for changes. 3. Stressed the importance of daily foot hygiene, including bathing and complete drying. The patient verbalized understanding and was offered a detailed handout on diabetic foot care. /quiana/ Josefina aGtica PA-C PA-C Signed: 02/03/2024 11:39 JOSEFINA GATICA [facility] Feb 03, 2024 11:00 AM NURSING NOTE: LOCAL TITLE: V15 PACT FACE TO FACE NOTE STL STANDARD TITLE: NURSING NOTE DATE OF NOTE: FEB 03, 2024@11:00 ENTRY DATE: FEB 03, 2024@11:00:20 AUTHOR: ARABELLA LEUNG COSIGNER: URGENCY: STATUS: COMPLETED Provider Visit: Patient Identifiers : Full Name Date of Telephone Number Reason for visit: Established Follow-Up Mode of Arrival: Ambulatory Allergy Review: AMOXIL, LISINOPRIL, DEFINITY Allergy list reviewed and remains current. Recent Vital Signs: Temperature: 97.7 F [36.5 C] (02/03/2024 10:59) Pulse: 78 (02/03/2024 10:59) Respiration: 20 (02/03/2024 10:59) B/P: 108/63 (02/03/2024 10:59) Pain: 0 (02/03/2024 10:59) Wt: 223 lb [101.15 kg] (02/03/2024 10:59) Ht: 67 in [170.2 cm] (02/03/2023 15:01) BMI: 35.0 POX: 96% (02/03/2024 10:59) Would you like to discuss any personal problem, family problem, alcohol use, drug use, or a mental or emotional illness? No Contact provided Primary Care phone number and encouraged to call if any questions or concerns. Review that after hours nurse line [phone] and emergency room are available 03/01 for patient use. Contact verbalized good understanding. Tobacco Use Screening: The patient has never used tobacco. Alcohol Use Screen (AUDIT-C): Alcohol Screen: SCREEN FOR ALCOHOL (AUDIT-C) An alcohol screening test (AUDIT-C) was negative (score=0). 1. How often did you have a drink containing alcohol in the past year? Consider a drink to be a 12 ounce can or bottle of regular beer, 8 ounces of malt liquor, a 5 ounce glass of table wine, or a 1.5 ounce shot of liquor (like scotch, gin, or vodka). Never 2. How many drinks containing alcohol did you have on a typical day when you were drinking in the past year? Response not required due to responses to other questions. 3. How often did you have six or more drinks on one occasion in the past year? Response not required due to responses to other questions. Depression Screening: Perform PHQ-2 A PHQ-2 screen was performed. The score was 0 which is a negative screen for depression. Over the past two weeks, how often have you been bothered by the following problems? 1. Little interest or pleasure in doing things Not at all 2. Feeling down, depressed, or hopeless Not at all Homelessness/Food Insecurity Screen: In the past 2 months, have you been living in stable housing that you own, rent, or stay in as part of a household? Yes - Living in stable housing. Are you worried or concerned that in the next 2 months you may NOT have stable housing that you own, rent, or stay in as part of a household? No - Not worried about housing near future [facility] [place] reports the following: Within the past 12 months, you worried whether your food would run out before you got money to buy more. Never true Within the past 12 months, the food you bought just didn't last and you didn't have money to get more. Never true Frail/Elderly Screen: ADL Screen - [place] Index of [place] in Activities of Daily Living Bathing: (3 Points) Receives no assistance (gets in and out of tub by self, if tub is usual means of bathing) Dressing: (3 Points) Gets clothes and gets completely dressed without assistance. Toileting: (3 Points) Goes to toilet room , cleans self, and arranges clothes without assistance (may use object for support such as cane, walker, or wheelchair, and may manage own night bedpan or commode, emptying same next morning) Transferring: (3 Points) Moves in and out of bed and in and out of chair without assistance (may be using object for support, such as cane or walker) Continence: (3 Points) Controls urination and bowel movement completely by self Feeding: (3 Points) Feeds self without assistance Total Score: 18 Points 18 = High (patient independent) 6 = Low (patient very dependent) IADL Screen - [place] Instrumental Activities of Daily Living Scale Ability to use telephone: (1 point) Operates Telephone on own initiative; looks up and dials numbers. Shopping: (1 point) Takes care of all shopping needs independently. Food preparation: (1 point) Plans, prepares, and serves adequate meals independently. Housekeeping: (1 point) Maintains house alone with occasional assistance (heavy work). Laundry: (1 point) Does personal laundry completely. Mode of transportation: (1 point) Travels independently on public transportation or drives own car. Responsibility for own medications: (1 point) Is responsible for taking medications in correct dosages at correct times. Ability to handle finances: (1 point) Manages financial matters independently (budgets, writes checks, pays rent and bills, goes to bank); collects and keeps track of income. Total score: 8 points 8 = High function, independent 0 = Low function, dependent Falls Screen: No falls within the past 12 months. Incontinence Screen No incontinence. Influenza Immunization: The patient has received the seasonal influenza vaccine for the current season at another location. Documented: INFLUENZA, UNSPECIFIED FORMULATION Historical Date Administered: Jan 23, 2024 Outside Location: [facility] Information Source: FROM PATIENT'S RECALL Comment: ruth bravo /quiana/ ARABELLA LEUNG RN, BSN REGISTERED NURSE Signed: 02/03/2024 11:06 ARABELLA LEUNG [facility]
--- OUTSIDE RECORDS SUMMARY | 2024-08-23 11:00 | XMS_ITS | Referral Summary ---
Author Organization [facility] Medical Office Building [address] Address [address] [place] [address] Care Team Providers Care Production Lapping Machine Operator Name Role Phone Roberto Guevara MD Primary Care Provider [phone] Allergies Active Allergy Reactions Criticality Noted Date Comments Amoxicillin Hives Reaction: HIVES, Perflutren Lipid Microspheres Anaphylaxis High 07/04/2019 Perflutren Other (See comments) High Reaction: OTHER REACTION, Medications DULoxetine DR (CYMBALTA) 60 mg capsule Take 60 mg by mouth daily Active omega 4-ttn-hiy-fish oil 1,000 mg (120 mg-180 mg) capsule Active losartan (COZAAR) 100 mg tablet Take 100 mg by mouth daily Active metFORMIN (GLUCOPHAGE) 1,000 mg tablet Take 1,000 mg by mouth daily with breakfast Active metoprolol (LOPRESSOR) 25 mg tablet Take 25 mg by mouth 2 (two) times a day 75mg qd Active omeprazole (PriLOSEC) 20 mg capsule Take 20 mg by mouth daily Active oxybutynin XL (DITROPAN-XL) 10 mg 24 hr tablet Take 10 mg by mouth daily Active rOPINIRole (REQUIP) 1 mg tablet Take 1 mg by mouth 3 (three) times a day Active tamsulosin (FLOMAX) 0.4 mg extended release capsule 0.4 mg Acti ve atorvastatin (LIPITOR) 40 mg tablet Take 40 mg by mouth daily Active multivit-minera f-pmsc-lkjlpn tablet Take by mouth Active cholecalciferol (VITAMIN D-3) 5,000 unit capsule Take 5,000 Units by mouth daily Active cyanocobalamin (Vitamin B-12) 1,000 mcg tabletIndicatio ns:Prevention of Vitamin B12 Deficiency Take 1,000 mcg by mouth daily Active Active Problems Problem Noted Date Diagnosed Date Memory loss 07/04/2019 Atherosclerosis of coronary artery 11/09/2012 Social History Tobacco Use Types Packs/Day Years Used Date Smoking Tobacco: Never Alcohol Use Standard Drinks/Week Comments Never 0 (1 standard drink = 0.6 oz pur e alcohol) AUDIT-C Answer Date Recorded Frequency of Alcohol Consumption Never 07/04/2019 Average Number of Drinks Not on file 020 Frequency of Binge Drinking Not on file 06/14 Sex and Gender Information Value Date Recorded Sex Assigned at Not on file Legal Sex Male 3:05 AM [employer] Gender Identity Not on file Sexual Orientation Not on file Last Filed Vital Signs Vital Sign Reading Time Taken Comments Blood Pressure 107/65 07/04/2019 1:31 PM [employer] Pulse 92 07/04/2019 1:31 PM [employer] Temperature - - Respiratory Rate - - Oxygen Saturation 95% 11/09/2012 5:35 PM CDT Inhaled Oxygen Concentration - - Weight 106.2 kg (234 lb 3.2 oz) 07/04/2019 1:31 PM [employer] Height 167.6 cm (5' 6 ) 07/04/2019 1:31 PM [employer] Body Mass Index 37.8 07/04/2019 1:31 PM [employer] Plan of Treatment Not [place] [address] [facility] [facility] Member Subscriber Plan / Payer (Ef fective 2014-Present) Name:Robert Lawler Jr. Relation to Subscriber:Self Name:Robert Lawler Jr. Payer ID:[id number] Group ID:Not on file Type:T-System Address: [facility] [address] [place] [address] [employer] [facility] Member Subscriber Plan / Payer (Ef fective 2014-Present) Name:Robert Lawler Jr. Relation to Subscriber:Self Name:Robert Lawler Jr. Payer ID:[id number] Group ID:Not on file Type:COMMERCIAL Address: [address] [place], [place] Care Teams Production Lapping Machine Operator Relationship Specialty Start Date End Date Roberto Guevara MD [address] [place] [address] PCP - General Family Medicine 06/04/19
--- OUTSIDE RECORDS SUMMARY | 2024-08-23 11:00 | XMS_ITS | Clinical Summary ---
Author Organization [facility] Medical Office Building [address] Address [address] [place] [address] Care Team Providers Care Facilities Planner Name Role Phone Roberto Guevara MD Primary Care Provider [phone] Allergies Active Allergy Reactions Criticality Noted Date Comments Amoxicillin Hives Reaction: HIVES, Perflutren Lipid Microspheres Anaphylaxis High 07/04/2019 Perflutren Other (See comments) High Reaction: OTHER REACTION, Medications DULoxetine DR (CYMBALTA) 60 mg capsule Take 60 mg by mouth daily Active omega 5-urq-zqo-fish oil 1,000 mg (120 mg-180 mg) capsule [...] 40 mg by mouth daily Active multivit-minera v-ilcz-zdimsu tablet Take by mouth Active cholecalciferol (VITAMIN D-3) 5,000 unit capsule Take 5,000 Units by mouth daily Active cyanocobalamin (Vitamin B-12) 1,000 mcg tabletIndicatio ns:Prevention of Vitamin B12 Deficiency Take 1,000 mcg by mouth daily Active Active Problems Problem Noted Date Diagnosed Date Memory loss 07/04/2019 Atherosclerosis of coronary artery 11/09/2012 Surgical History Surgery Date Site/Laterality Comments CORONARY ARTERY BYPASS GRAFT CHOLECYSTECTOMY Medical History Medical History Date Comments Diabetes mellitus (HCC) Hypertension Stroke (HCC) Heart attack (HCC) Hyperlipemia CAD (coronary artery disease) Family History Medical History Relation Name Comments Hypertension Father Hypertension Sister Relation Name Status Comments Father Sister Social History Tobacco Use Types Packs/Day Years [...] on file Legal Sex 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 Gender Identity Not on file Sexual Orientation Not on file Obstetrics History Last Filed Vital Signs Vital Sign Reading Time Taken Comments Blood Pressure 107/65 07/04/2019 1:31 PM [employer]PER[employer] OPERATOR Pulse 92 07/04/2019 1:31 PM [employer]ITY [employer]PER[employer] OPERATOR Temperature - - Respiratory Rate - - Oxygen Saturation 95% 11/09/2012 5:35 PM CDT Inhaled Oxygen Concentration - - Weight 106.2 kg (234 lb 3.2 oz) 07/04/2019 1:31 PM SEC[employer]ITY [employer]PERATIONS C[employer] OPERATOR Height 167.6 cm (5' 6 ) 07/04/2019 1:31 PM [employer] OPERATOR Body Mass Index 37.8 07/04/2019 1:31 PM [employer] OPERATOR Plan of Treatment Health Maintenance Due Date Last Done Comments Depression Screening 1950 Fall Risk Assessment 1950 Hepatitis C Screening 1950 DTaP/Tdap/Td Vaccine (1 - Tdap) 01/10/1959 Hepatitis B Screening 01/10/1966 Pneumococcal vaccine 65+ (1 of 1 - PCV) 01/10/1998 Zoster Vaccine (1 of 2) 01/10/1998 Well Visit 65+ 01/10/2013 Influenza Vaccine (#1) 2024 Insurance MEDICARE [employer] Care Teams Facilities Planner Relationship Specialty Start Date End Date Roberto Guevara MD [address] [place] [address] PCP - General Family Medicine 06/04/19
--- OUTSIDE RECORDS SUMMARY | 2024-08-23 11:00 | XMS_ITS ---
Author Name [facility] Organization [facility] Address [address] [place] [address] Care Team Providers Care Health Administration Teacher Name Role Phone DYLAN ARROOY Primary Care Provider Unavailabl e Insurance Providers: [...] PART B Aug 11, 2014 PART B [id number] BRIGID QUINTERO JR PATIENT MEDICARE (WNR) MEDICARE (M) PART B Aug 11, 2014 PART B [id number] INGRID CASILLASBRIGID PATIENT MEDICARE (WNR) MEDICARE (M) PART A Dec 11, 2012 PART A [id number] INGRID CASILLASBRIGID PATIENT MEDICARE (WNR) MEDICARE (M) PART B Dec 11, 2012 PART B [id number] INGRID CASILLASBRIGID PATIENT MEDICARE (WNR) MEDICARE (M) PART A Dec 11, 2012 PART A [id number] BRIGID QUINTERO JR PATIENT MEDICARE (WNR) MEDICARE (M) PART A Dec 11, 2012 PART A [id number] BRIGID QUINTERO JR PATIENT MEDICARE (WNR) MEDICARE (M) PART A Dec 11, 2012 PART A [id number] [id number] BRIGID QUINTERO JR PATIENT MEDICARE (WNR) MEDICARE (M) PART B Dec 11, 2012 PART B [id number] [id number] BRIGID QUINTERO JR PATIENT MEDICARE PART D (WNR) MEDICARE (M) PART D Jun 13, 2015 PART D [id number] BRIGID QUINTERO JR PATIENT MEDICARE PART D (WNR) MEDICARE (M) PART D Jun 13, 2015 PART D [id number] BRIGID QUINTERO JR PATIENT Selected Encounter This section includes the information on record at [place] for the Encounter. Date/Time Encounter Type Encounter Description Reason Provider Source Mar 01, 2024 12:20 PM [facility] OL DIG ASSMT&MGMT 5-10 CLINICAL PHARMACY ICD-10-CM E11.9 Type 2 diabetes mellitus without complications BRETT ORTEGA [facility] Encounter Template Text not used by [place] Assessments - Encounter Diagnoses This section includes the primary and secondary diagnoses documented for the Encounter. Date/Time Primary/Secondary Diagnosis Diagnosis Name Provider Source Mar 01, 2024 12:32 PM PRIMARY Type 2 diabetes mellitus without complications BRETT ORTEGA [facility] Plan of Treatment: Future Appointments (+ 6 months) and Future Tests (+/- 45 days) The Plan of Treatment section includes future care activities for the patient from all [place] treatmentfacilities. This section includes future appointments and future orders which are active, pending or scheduled. Future Appointments This section includes appointments that were scheduled to occur 6 months from the date of the Encounter, up to a maximum of 20 appointments. The data comes from all [place] treatment facilities. Appointment Date/Time Appointment Type Appointme nt Facility Name May 28, 2024 12:47 PM AMBULATORY - MEDICINE [facility] Active, Pending, and Scheduled Orders This section includes a listing of several types of active, pending, and scheduled orders, including clinic medications orders, diagnostic test orders, procedure orders and consult orders; where the start date of the order is 45 days before the date of the Encounter or 45 days after the date of theEncounter. The data comes from all [place] treatment facilities. Test Date/Time Test Type Test Details Facility Name Feb 03, 2024 12:00 AM Laboratory - Chemi stry Order MICRAL/CREAT PROFILE (STL) URINE YELLOW [facility] Feb 03, 2024 12:00 AM Laboratory - Chemi stry Order OCCULT BLOOD FIT X1 SCREEN STOOL FECES [facility] Feb 03, 2024 12:00 AM Laboratory - Chemi stry Order URINALYSIS (STL-PB) URINE [facility] Lab Results: +/- 30 days of the [...] Range Comment Feb 03, 2024 11:42 AM [facility] HGA1C Specimen Type: BLOOD No comment entered. Ordering Provider: TANGELA ARROYO EN Report Released Date/Time: Feb 03, 2024 11:27 AM Reporting Lab: [facility] [address] [facility] [id number] Performing Lab: [facility] [address] [facility] [address] HGA1C 7.1 H 4.0-6.0 Feb 03, 2024 11:42 AM [facility] VITAMIN D, 25-HYDROXY Specimen Type: SERUM No comment entered. Ordering Provider: TANGELA ARROYO EN Report Released Date/Time: Feb 03, 2024 11:27 AM Reporting Lab: [facility] [address] [facility] [id number] Performing Lab: [facility] [address] [facility] [address] VITAMIN D, 25-HYDROXY 41.2 ng/mL 30-96 Feb 03, 2024 11:[address] [facility] LIPID PANEL (STL) Specimen Type: PLASMA Comment: No hemolysis noted. Ordering Provider: TANGELA ARROYO Report Released Date/Time: Feb 03, 2024 11:27 AM Reporting Lab: [facility] [address] [place] [address] Performing Lab: [facility] [address] [place] [address] CHOLESTEROL 101 mg/dL 0-200 TRIGLYCERIDE 126 mg/dL 0-150 CALCULATED LDL 46 mg/dL See Interp HDL(New) 30 mg/dL L > 40 Feb 03, 2024 11:42 AM [facility] TSH (MA-PB) Specimen Type: SERUM No comment entered. Ordering Provider: TANGELA ARROYO EN Report Released Date/Time: Feb 03, 2024 11:27 AM Reporting Lab: [facility] [address] [place] [address] Performing Lab: [facility] [address] [place] [address] TSH 0.426 u[IU]/mL L 0.470-5.000 FREE T4(REFLEX) 1.02 ng/mL 0.70-1.48 Feb 03, 2024 11:42 AM [facility] COMPREHENSIVE METABOLIC PANEL Specimen Type: PLASMA Comment: No hemolysis noted. Ordering Provider: TANGELA ARROYO EN Report Released Date/Time: Feb 03, 2024 11:27 AM Reporting Lab: [facility] [address] [place] [address] Performing Lab: [facility] [address] [place] [address] CREATININE 1.22 mg/dL 0.70-1.30 UREA NITROGEN 16.8 [...] 61.44 >60 Feb 03, 2024 11:42 AM [facility] CBC Specimen Type: BLOOD No comment entered. Ordering Provider: TANGELA ARROYO EN Report Released Date/Time: Feb 03, 2024 11:27 AM Reporting Lab: [facility] [address] [facility] [id number] Performing Lab: [facility] [address] [facility] [address] WBC 7.7 10*3/uL 3.6-11.2 RBC 4.25 10*6/uL [...] 10*3/uL 0.00-0.60 BASOPHILS, ABSOLUTE 0.03 10*3/uL 0.00-0.20 Encounter Notes: All associated encounter notes This section contains the clinical notes associated to the Encounter. Date/Time Encounter Note(s) Provider Source Mar 01, 2024 12:21 PM PHARMACY CONSULT: LOCAL TITLE: PHARMACY PRIOR APPROVAL CONSULT STL STANDARD TITLE: PHARMACY CONSULT DATE OF NOTE: MAR 01, 2024@12:21 ENTRY DATE: MAR 01, 2024@12:21:09 AUTHOR: BRETT ORTEGA EXP COSIGNER: URGENCY: STATUS: COMPLETED The medical record has been reviewed with regard to this prior authorization drug request. Medication requested: LIRAGLUTIDE (VICTOZA) 6MG/ML INJ PEN 3ML Medication indication: DM Medical history relevant to this request: HGA1C 7.1 H % 02/03/2024 11:42 --DM with fair control on liraglutide, metformin, empagliflozin --Not taking semaglutide due to h/o DME and DR, however most recent eye exam showed see below. Would consider opto e consult on the safety of changing to preferred agent , semaglutide. 1. 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 (minutes) /quiana/ BRETT ORTEGA, PHARM.D., BCPS CLINICAL PHARMACIST Signed: 03/01/2024 12:32 Receipt Acknowledged By: 03/01/2024 15:43 /quiana/ LEEROY Mata PA-C, KARI B [facility]
--- OUTSIDE RECORDS SUMMARY | 2024-08-23 11:00 | XMS_ITS | Referral Summary ---
Author Organization [facility] Address [address] [place] [address] Care Team Providers Care Events Specialist Name Role Phone Bhanu Gusman MD Primary Care Provider [phone] Source Comments [facility],non-owned Affiliates and Associated Physician Practices is amultiple site organization consisting of ambulatory clinics and hospital sitesin [place], [place], [place] and [place]. This disclosure is being madepursuant to the Care Everywhere program and may not contain all information available regarding this patient. Last updated 18.[facility] Allergies Active Allergy Reactions Criticality Noted Date [...] and heating? Not hard at all 04/28/2024 [facility] [place] of Occupat ional Health - Occupational Stress [...] any time in the past 12 m [facility], were you homeless or living in a [facility] (including now)? No 04/28/2024 Sex and Gender Information Value Date Recorded Sex Assigned at Not on file Gender Identity Not on file Sexual Orientation Not on file Last Filed Vital Signs Vital Sign Reading Time Taken Comments Blood Pressure 93/59 04/28/2024 12:45 PM DIRECTOR OF CARDIOPULMONARY SERVICES Pulse 88 04/28/2024 12:45 PM [employer] OF C[employer]ULMONARY SERVICES Temperature 36.6 C (97.8 F) 04/28/2024 12:45 PM [employer] OF [employer]MON[employer] SERVICES Respiratory Rate 20 04/28/2024 12:45 PM DIRECTOR OF CARDIOPULMONARY SERVICES Oxygen Saturation 96% 04/28/2024 12:45 PM [employer]OR OF CARDIOPULMONARY SERVICES Inhaled Oxygen Concentration - - Weight 100.2 kg (221 lb) 04/28/2024 2:09 PM [employer]OR OF CARDIOPULMONARY SERVICES Height 170 cm (5' 6.93 ) 04/28/2024 2:09 PM [employer] OF C[employer]ULMONARY SERVICES Body Mass Index 34.69 04/28/2024 2:09 PM DIRECTOR OF CARDI[employer]ULMONARY SERVICES Functional Status Functional Status Response Date of Assess ment Is person deaf or have serious hearing difficult y? No 04/28/2024 Is person blind or have serious difficulty seein g? No 04/28/2024 Does person have serious dif ficulty walking/climbing stairs? Yes 04/28/2024 Does person have difficulty dressing/bathing? No 04/28/2024 Does person have difficulty doing errands alone? No 04/28/2024 Cognitive Status Response Date of Assessm ent Does person have difficulty concentrating/remembering/making decisions? No 04/28/2024 Plan of Treatment Not on file Advance Directives * Full Code (Latest Code Status on File) Date Activated Date Inactivated Comments 04/28/2024 3:37 AM 04/28/2024 5:51 PM Care Teams Events Specialist Relationship Specialty Start Date End Date Bhanu Gusman MD [facility] [facility] [place] [address] PCP - General 06/12/19
--- OUTSIDE RECORDS SUMMARY | 2024-08-23 11:00 | XMS_ITS | Encounter Summary ---
Author Name [facility] [facility] [place] [facility] [place] [facility] [place] Address [address] [place] [address] Care Team Providers Care Media Arts Professor Name Role Phone DYLAN ARROYO Primary Care [...] PART B Aug 11, 2014 PART B [id number] INGRID BRIGID CASILLAS PATIENT MEDICARE (WNR) MEDICARE (M) PART B Aug 11, 2014 PART B [id number] INGRID BRIGID CASILLAS PATIENT MEDICARE (WNR) MEDICARE (M) PART A Dec 11, 2012 PART A [id number] INGRID BRIGID CASILLAS PATIENT MEDICARE (WNR) MEDICARE (M) PART B Dec 11, 2012 PART B [id number] INGRID BRIGID CASILLAS PATIENT MEDICARE (WNR) MEDICARE (M) PART A Dec 11, 2012 PART A [id number] BRIGID QUINTERO JR PATIENT MEDICARE (WNR) MEDICARE (M) PART A Dec 11, 2012 PART A [id number] BRIGID QUINTERO JR PATIENT MEDICARE (WNR) MEDICARE (M) PART A Dec 11, 2012 PART A [id number] BRIGID QUINTERO JR PATIENT MEDICARE (WNR) MEDICARE (M) PART B Dec 11, 2012 PART B [id number] BRIGID QUINTERO JR PATIENT MEDICARE PART D (WNR) MEDICARE (M) PART D Jun 13, 2015 PART D [id number] [phone] BRIGID QUINTERO JR PATIENT MEDICARE PART D (WNR) MEDICARE (M) PART D Jun 13, 2015 PART D [id number] BRIGID QUINTERO JR PATIENT Selected Encounter This section includes the information on record at [place] for the Encounter. Date/Time Encounter Type Encounter Description Reason Provider Source Dec 18, 2023 01:15 PM EMERGENCY DEPT VISIT MOD [facility] EMERGENCY DEPT ICD-10-CM M79.644 Pain in right finger(s) DEREJE BANGURA [facility] Encounter Template Text not used by [place] Assessments - Encounter Diagnoses This section includes the primary and secondary diagnoses documented for the Encounter. Date/Time Primary/Secondary Diagnosis Diagnosis Name Provider Source Dec 18, 2023 02:03 PM PRIMARY Pain in right finger(s) DEREJE BANGURA [facility] Plan of Treatment: Future Appointments (+ 6 months) and Future Tests (+/- 45 days) The Plan of Treatment section includes future care activities for the patient from all [place] treatmentfacilities. This section includes future appointments and future orders which are active, pending or scheduled. Future Appointments This section includes appointments that were scheduled to occur 6 months from the date of the Encounter, up to a maximum of 20 appointments. The data comes from all [place] treatment facilities. Appointment Date/Time Appointment Type Appointme nt Facility Name Feb 03, 2024 11:00 AM AMBULATORY - MEDICINE [facility] Feb 10, 2024 01:30 PM [facility] May 28, 2024 12:47 PM AMBULATORY - MEDICINE [facility] Vital Signs: All taken on the encounter date This section contains inpatient and outpatient Vital Signs collected on the date of the Encounter. Date/Time Temperature Pulse Blood Pressure Respiratory Rate SP02 Pain Height Weight Body Mass Index Source Dec 18, 2023 01:26 PM 98 90 133/90 18 3 [facility] Radiology Reports: +/- 30 days of the encounter Radiology Reports For cases when an order for radiology services may have been completed prior to the date of the Encounter, the report list includes the Radiology Reports that were completed up to 30 days before dateof the Encounter. For cases when an order for radiology services may have been completed after the date of the Encounter, the report list also includes the Radiology Reports that were completed up to30 days after date of the Encounter. The data comes from all [place] treatment facilities. Date/Time Radiology Report Provider Source Dec 18, 2023 01:25 PM FINGER 2 OR MORE V IEWS: INGRIDBRIGID Charu [id number] M Exm Date: DEC 18, 2023@13:25 Req Phys: DEREJE BANGURA Loc: -EMERGENCY DEPT 2ND SHIFT (R Img Loc: -MAIN RADIOLOGY SUITE Service: [facility], [facility] [address] [place] [address] (Case 61 COMPLETE) FINGER 2 OR MORE VIEWS (RAD Detailed) CPT:68435 Proc Modifiers : RIGHT Reason for Study: R 4th finger injury Clinical History: Report Status: Verified Date Reported: DEC 18, 2023 Date Verified: DEC 18, 2023 Carton Forming Machine Adjuster E-Sig: Report: FINGER 2 OR MORE VIEWS Clinical History: R 4th finger injury Comparison: No priors available Technique:3 views of the right fourth finger FINDINGS AND Impression: 1. No acute fracture, dislocation, radiodense foreign body or erosion in the ring finger. 2. Soft tissue swelling. 3. Maintained joint spaces. READING PHYSICIAN: Mao Giron MD -[id number] 12/18/2023 14:38 EDT [facility] National Teleradiology Program [phone] (For Medical Practitioner Use Only) Attention Patients / Veterans: If you have questions or concerns about these test results, please contact your ordering provider or primary care team. Primary Interpreting Staff: RADIOLOGY,OUTSIDE SERVICE, Staff Physician / RADIOLOGY,OUTSIDE SERVICE [facility] Encounter Notes: All associated encounter notes This section contains the clinical notes associated to the Encounter. Date/Time Encounter Note(s) Provider Source Dec 18, 2023 02:04 PM EMERGENCY DEPT DISCHARGE NOTE: LOCAL TITLE: DISCHARGE INSTRUCTIONS EMERGENCY DEPT ST STANDARD TITLE: EMERGENCY DEPT DISCHARGE NOTE DATE OF NOTE: DEC 18, 2023@14:04:05 ENTRY DATE: DEC 18, 2023@14:04:05 AUTHOR: DEREJE BANGURA EXP COSIGNER: URGENCY: STATUS: COMPLETED DISCHARGE INSTRUCTIONS IMPORTANT: We examined and treated you today on an emergency basis only. This was not a substitute for, or an effort to provide, complete medical care. In most cases, you must let your healthcare provider check you again. Tell your healthcare provider about any new or lasting problems. We cannot recognize and treat all injuries or illnesses in one Emergency Department visit. You were treated today by MD Alyce. YOU ARE THE MOST IMPORTANT FACTOR IN YOUR RECOVERY. Follow the provided instructions carefully. CONTACT INFORMATION: -Hospital Information: [facility] - [address] [place] [address]. [phone] -CRISIS Line: If you are having thoughts of harming yourself or thoughts of suicide immediately call the [place] Crisis line at [phone] -Nurse Line: If you have any questions regarding your health or symptoms please contact the nurse line at [phone] -General Help: Any questions or concerns, call [place] Clinical Contact Center - [phone]. Ask to speak to a doctor Tuesday thru Tuesday 8a-4:30p VISIT NOTES: If you had special tests, such as EKG's or X-rays, we will review them again within 24 hours. We will call you if there are any new suggestions. FOLLOW APPOINTMENT INFORMATION: It is important that you keep your scheduled appointments. If you have questions, or if you need to Make, Change or Cancel an Appointment or relay a message to your Primary Care or Specialty Care Provider please call [phone]. If you are not already established with a [place] primary health careers instructor, an administrative request has been placed to offer that to you. You will recieve a notification for follow-up to be connected with a health care provider. Future Appointments 02/03/2024 at 11:00am [facility] PCP 02/10/2024 at 1:30pm [facility] 5 MEDICATION INFORMATION: Take your medicines as prescribed. If you do not understand any of your medicines, please ask questions. If you think you may not be able to apple picker your medicine, please let us know so we can look at other options. -Your medication list includes any medications that were recently prescribed but not filled by the Pharmacy (PENDING Medicines). -Included are any known ACTIVE Medicines. Please review this list to make sure it is accurate, if this list does not match the current medications you are taking please follow-up with your Primary Care Team to have your Medication List reviewed. Pending Medications [none] Active Medications ATORVASTATIN CALCIUM 20MG TAB TAKE ONE TABLET BY MOUTH EVERY EVENING FOR CHOLESTEROL. REPORT ANY UNEXPLAINED MUSCLE PAIN/WEAKNESS TO PROVIDER. CEPHALEXIN 500MG CAP TAKE ONE CAPSULE BY MOUTH TWICE A DAY TAKE WITH FOOD. TAKE UNTIL GONE UNLESS OTHERWISE DIRECTED. CHOLECALCIFEROL (LOW DOSE VIT D) - (OTC) TAB BY MOUTH ONCE A DAY (Non-VA Medication) CLOPIDOGREL BISULFATE 75MG TAB TAKE ONE TABLET BY MOUTH ONCE A DAY TO THIN BLOOD CYANOCOBALAMIN (OTC) TAB 1000MCG BY MOUTH ONCE A DAY (Non-VA Medication) DULOXETINE HCL 60MG EC CAP TAKE ONE CAPSULE BY MOUTH ONCE A DAY DO NOT ABRUPTLY DISCONTINUE MEDICATION. EMPAGLIFLOZIN 25MG TAB TAKE ONE-HALF TABLET BY MOUTH ONCE A DAY ICOSAPENT ETHYL 1GM CAP TAKE TWO CAPSULES BY MOUTH TWICE A DAY WITH MEALS FOR TRIGLYCERIDES LIRAGLUTIDE (VICTOZA) 6MG/ML INJ PEN 3ML INJECT 1.8MG UNDER THE SKIN ONCE A DAY FOR DIABETES MAGNESIUM OXIDE TAB 400MG BY MOUTH (Non-VA Medication) METFORMIN HCL 1000MG TAB TAKE ONE TABLET BY MOUTH TWICE A DAY WITH MEALS FOR BLOOD SUGAR CONTROL. TAKE WITH FOOD. AVOID ALCOHOL. DISCONTINUE BEFORE GETTING XRAY DYE. METOPROLOL SUCCINATE 200MG SA TAB TAKE ONE TABLET BY MOUTH ONCE A DAY FOR HEART/BLOOD PRESSURE. SWALLOW WHOLE, DO NOT CRUSH OR CHEW (TABLETS MAY BE CUT IN HALF). OMEPRAZOLE 20MG EC CAP TAKE ONE CAPSULE BY MOUTH EVERY MORNING TO LOWER STOMACH ACID. TAKE 30 MINUTES PRIOR TO FOOD. OXYBUTYNIN CHLORIDE 10MG SA TAB TAKE ONE TABLET BY MOUTH ONCE A DAY FOR BLADDER. SWALLOW WHOLE, DO NOT CRUSH OR CHEW. PREDNISOLONE ACETATE 1% OPH SUSP INSTILL 1 DROP IN RIGHT EYE FOUR TIMES A DAY FOR EYE INFLAMMATION SACUBITRIL 97MG/VALSARTAN 103MG TAB TAKE 1 TABLET BY MOUTH TWICE A DAY FOR HEART SPIRONOLACTONE 25MG TAB TAKE ONE TABLET BY MOUTH ONCE A DAY TAMSULOSIN HCL 0.4MG CAP TAKE ONE CAPSULE BY MOUTH ONCE A DAY APPROXIMATELY 30 MINUTES AFTER THE SAME MEAL EACH DAY (FOR PROSTATE) Medications Medications in the last 90 days ATORVASTATIN CALCIUM 20MG TAB TAKE ONE TABLET BY MOUTH EVERY EVENING FOR CHOLESTEROL. REPORT ANY UNEXPLAINED MUSCLE PAIN/WEAKNESS TO PROVIDER. CLOPIDOGREL BISULFATE 75MG TAB TAKE ONE TABLET BY MOUTH ONCE A DAY TO THIN BLOOD DULOXETINE HCL 60MG EC CAP TAKE ONE CAPSULE BY MOUTH ONCE A DAY DO NOT ABRUPTLY DISCONTINUE MEDICATION. EMPAGLIFLOZIN 25MG TAB TAKE ONE-HALF TABLET BY MOUTH ONCE A DAY METOPROLOL SUCCINATE 200MG SA TAB TAKE ONE TABLET BY MOUTH ONCE A DAY FOR HEART/BLOOD PRESSURE. SWALLOW WHOLE, DO NOT CRUSH OR CHEW (TABLETS MAY BE CUT IN HALF). NEEDLE,PEN 31G,5MM USE 1 NEEDLE UNDER THE SKIN ONCE A DAY OMEPRAZOLE 20MG EC CAP TAKE ONE CAPSULE BY MOUTH EVERY MORNING TO LOWER STOMACH ACID. TAKE 30 MINUTES PRIOR TO FOOD. OXYBUTYNIN CHLORIDE 10MG SA TAB TAKE ONE TABLET BY MOUTH ONCE A DAY FOR BLADDER. SWALLOW WHOLE, DO NOT CRUSH OR CHEW. SACUBITRIL 97MG/VALSARTAN 103MG TAB TAKE 1 TABLET BY MOUTH TWICE A DAY FOR HEART SPIRONOLACTONE 25MG TAB TAKE ONE TABLET BY MOUTH ONCE A DAY TAMSULOSIN HCL 0.4MG CAP TAKE ONE CAPSULE BY MOUTH ONCE A DAY APPROXIMATELY 30 MINUTES AFTER THE SAME MEAL EACH DAY (FOR PROSTATE) This Information Is About Your Illness and Diagnosis Thank you for your service! FINGER CONTUSION (Bruised finger) Your finger was injured. You have broken some of the blood vessels in and under the skin. You will have pain and swelling. Your finger will be black and blue . The bruise will slowly go away in the next 2 to 3 weeks. Please follow these instructions: -Keep your finger above the level of your heart to reduce throbbing and help healing. -Wrap your finger firmly (but not tightly) to prevent swelling. -Apply ice packs to your finger for the first few days to prevent swelling. -After the first few days, use warm packs to help healing. Contact your health care provider as soon as possible if you have any of the following: -increased pain or swelling. -no improvement in 1 week. -red streaks from the injury. -fever. -any new or severe symptoms. Contact your health care provider as soon as possible if you have: -Concerns for an emergency medical condition -Uncontrolled pain or other life-threatening symptoms -Any worries or concerns -Other: END OF INSTRUCTIONS /es/ Dereje Bangura MD Staff ED Attending Physician Signed: 12/18/2023 14:04 DEREJE BANGURA [facility] Dec 18, 2023 01:29 PM PHYSICIAN EMERGENCY DEPT NOTE: LOCAL TITLE: EMERGENCY DEPARTMENT ST STANDARD TITLE: PHYSICIAN EMERGENCY DEPT NOTE DATE OF NOTE: DEC 18, 2023@13:29 ENTRY DATE: DEC 18, 2023@13:29:11 AUTHOR: DEREJE BANGURA EXP COSIGNER: URGENCY: STATUS: COMPLETED TRIAGE CHIEF COMPLAINT: HPI: Patient is a 73-year-old male with history of diabetes, CAD, presents ER with right hand fourth digit injury 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 He tells me car door slammed on his right hand causing pain to the tip of the right fourth digit. He reports small amount of bleeding from the distal palmar aspect of the fourth digit. Idamay reports throbbing pain to the tip of the right hand fourth digit. Patient denies any other injury. Patient tells me he is right-hand dominant. Idamay denies recent illnesses or known sick contacts. REVIEW OF SYSTEMS: See HPI for further details. All 10 systems reviewed and otherwise negative unless otherwise detailed herein. PAST MEDICAL HISTORY: 1) Coronary arteriosclerosis 2) Obstructive sleep apnea syndrome 3) Erectile dysfunction 4) Tobacco use 5) Diabetes mellitus 6) Tobacco use 7) Obesity 8) Exposure to potentially hazardous substance CURRENT MEDICATIONS: Active Outpatient Medications (including Supplies): [...] 400MG BY MOUTH ACTIVE 17 Total Medications No medications found.. I have reviewed the patient's medication list with the patient and/or his/her care-cna caregiver. Any medication discrepancies have been resolved. Patient will be provided with an updated list of his/her medication(s). SURGICAL HISTORY: not pertinent FAMILY HISTORY: not pertinent SOCIAL HISTORY: Social History Main Topics: Smoking status: 08/19/2017 Current Tobacco User Alcohol Use: not indorsed ____ Illicit Drug Use: not indorsed Sexual Activity: Other Topics of Concern: Child bearing age: N/A LMP: N/A possible: N/A ALLERGIES: Review of patient's allergies indicates: AMOXIL, LISINOPRIL, DEFINITY PHYSICAL EXAM: VITAL SIGNS: 133/90 (12/18/2023 13:26)90 (12/18/2023 13:26)96% (02/03/2023 15:01)98 F [36.7 C] (12/18/2023 13:26)18 (12/18/2023 13:26)The OBJECT WEIGHT LAST 3 was NOT found...Contact IRM. MAThe OBJECT was NOT found...Contact IRM.PAIN ASSESSMENTThe OBJECT was NOT found...Contact IRM. Measurement DT PAIN 12/18/2023 13:26 3 CONSTITUTIONAL: No acute distress, Non-toxic appearance HENT: airway patent EYES: Conj pink, sclera clear NECK: Normal range of motion, No tenderness, Supple, No stridor, No LAD. CARDIOVASCULAR: Normal heart rate, Normal rhythm, No murmurs, No rubs, No gallops. PULMONARY/CHEST: CTA bilaterally, thorax stable without tenderness ABDOMEN: Bowel sounds normal, Soft, flat, No tenderness, No bruit, No masses, No pulsatile masses BACK: No tenderness, No CVA tenderness : RECTAL: EXTREMITIES: Right upper extremity: Superficial abrasion to the palmar aspect of the distal fingertip. Small amount of bleeding noted at the proximal nail fold. No subungual hematoma. Full range of motion at PIP and DIP joint without difficulty. Neurovascular intact. Normal range of motion, Intact distal pulses, No edema. NEUROLOGIC: Alert & oriented/reactive, Normal motor function, Normal gait, no ataxia, No focal deficits appreciated on cursory screening exam SKIN: Warm, Dry, No erythema, No rash LABS: RADIOLOGY: FINGER 2 OR MORE VIEWS Exm Date: DEC 18, 2023@13:25 Req Phys: DEREJE BANGURA Loc: -EMERGENCY DEPT 2ND SHIFT (R Img Loc: -MAIN RADIOLOGY SUITE Service: Unknown [facility], [facility] [address] [place] [address] (Case 61 COMPLETE) FINGER 2 OR MORE VIEWS (RAD Detailed) CPT:98301 Proc Modifiers : RIGHT Reason for Study: R 4th finger injury Clinical History: Report Status: Verified Date Reported: DEC 18, 2023 Date Verified: DEC 18, 2023 Carton Forming Machine Adjuster E-Sig: Report: FINGER 2 OR MORE VIEWS Clinical History: R 4th finger injury Comparison: No priors available Technique:3 views of the right fourth finger FINDINGS AND Impression: 1. No acute fracture, dislocation, radiodense foreign body or erosion in the ring finger. 2. Soft tissue swelling. 3. Maintained joint spaces. READING PHYSICIAN: Mao Giron MD -[id number] 12/18/2023 14:38 EDT [facility] [phone] (For Medical Practitioner Use Only) Attention Patients / Veterans: If you have questions or concerns about these test results, please contact your ordering provider or primary care team. Primary Interpreting Staff: RADIOLOGY,OUTSIDE SERVICE, Staff Physician / ECG IMPRESSION: ED COURSE & MEDICAL DECISION MAKING: Nursing notes, medications, vital signs, allergies and pertinent labs & imaging studies reviewed (see chart for details) with lab results reviewed with patient and family/caregivers at bedside and radiology results reviewed with patient and any family/caregivers at bedside. Stable, alert, nontoxic, nonfocal with clinically apparent right fourth digit injury after accidentally slamming in car door prior to ED arrival. well-appearing in no acute distress. Right hand x-ray: Negative for fracture. Superficial abrasion along distal aspect of digit noted. These were cleaned and topical antibiotic ointment, dressing and finger splint were applied. With history of diabetes and and crush injury to digit along with open wound patient be discharged home on Keflex. Idamay felt stable for discharge home and outpatient management. Clinical information obtained from an independent historian. History obtained from or confirmed by: Clinical information obtained from patient. ___spouse ___parent ___guardian ___family ___friend ___EMS ___other: Discussed with radiology regarding test interpretation: Right hand x-ray radiology report reviewed by me during this ED visit. I performed an independent interpretation of: ___EKG ___rhythm strip _X__plain x-ray: Right hand x-ray ___ultrasound ___CT scan ___MRI ___other Patient's care impacted by: _X__Diabetes ___Hypertension ___Cancer ___other: Patient's care is significantly limited by social determinants of health including, but not limited to: ___inadequate housing ___low income ___alcoholism and drug addiction in family ___problems related to primary support group ___unemployment ___problems with employment ___language barrier ___lack of transportation ___psychiatric disease ___other social determinants of health: External records reviewed: ___Inpatient records _X__office records _X__outpatient records ___prior outpatient labs ___prior outpatient radiology ___primary care record ___outside ED record ___PMD referral ___outside ER ___urgent care referral ___other: Management of the patient was discussed with: ___Hospitalist ___consultant ___behavioral health provider ___primary care provider ___other: The following testing was considered but ultimately was not performed after discussion with the patient/family: I considered prescription management with the following but ultimately did not prescribe: Rx for Keflex will be sent to pharmacy _X__pain medication ___antiviral ___antibiotic ___other: I considered admission/ observation but decided upon discharge due to: Patient felt stable for discharge home and outpatient management. SIDE LASTER SERVICE/TIME: MEDICATIONS GIVEN IN ED: [X] YES Adacel [ ] NO DIFFERENTIAL DIAGNOSES CONSIDERED: Fracture, sprain, strain, contusion, abrasion, laceration, other DECISION to ADMIT / DISCHARGE TIME: 1353 DISPOSITION CONDITION:[X] Improved [ ] Unchanged [ ] Deteriorated CLINICAL IMPRESSION: 1 -crush injury, fourth digit of right hand 2 -right hand fourth finger abrasion 3 - DISCHARGE INSTRUCTIONS AND PATIENT-DIRECTED FOLLOW-UP RECOMMENDATIONS: DIET: regular ACTIVITY: ad yahir NEW MEDS: Keflex MEDICATION RECONCILIATION: CONTINUE ALL PRESCRIBED MEDICATIONS DIRECTED EXCEPT: FOLLOW-UP WITH PRIMARY RETIREMENT CONSULTANT/SPECIALIST: routine in 1-2 weeks if not improving, sooner if worse RETURN TO EMERGENCY: if any worries or concerns ADDITIONAL SIGNATURE PCP: [X] YES [ ] NO [ ] not [...] 400MG BY MOUTH ACTIVE 17 Total Medications /es/ Dereje Bangura MD Staff ED Attending Physician Signed: 12/18/2023 14:25 Receipt Acknowledged By: 12/19/2023 15:11 /es/ LEEROY Mata PA-C, [facility] Dec 18, 2023 01:24 PM EMERGENCY DEPT TRIAGE NOTE: LOCAL TITLE: EMERGENCY DEPARTMENT TRIAGE NOTE STANDARD TITLE: EMERGENCY DEPT TRIAGE NOTE DATE OF NOTE: DEC 18, 2023@13:24 ENTRY DATE: DEC 18, 2023@13:24:22 AUTHOR: REGULO NEGRETE EXP COSIGNER: URGENCY: STATUS: COMPLETED EMERGENCY DEPARTMENT TRIAGE NOTE Has ADDENDA Emergency Department/Urgent Care Center Triage Patient age:73 Sex: MALE On arrival patient was: AMBULATORY Patient phone number: [phone] Allergies: AMOXIL, LISINOPRIL, DEFINITY Subjective/Chief Complaint: R finger injury Objective: Pt to ED with complaints of injury to the R 4th finger which occured just prior to arrival. pt stated he smashed his finger in a car door. denied further injury. pt appeared awake and alert. dsd placed to pt's finger, as a small amount of bleeding was noted. +PMS to RUE. no distress noted. VSS. The patient is not a fall risk. BP: P: R: WT: T: HT: Temperature 98 F (36.7 C) Pulse 90 Respirations 18 Blood Pressure 133/90 Pain scale recorded: 3 Pulse Oximetry 94 Room Air Sepsis Screening Evaluation Emergency Severity Index (TANIA) level Level 4 Current Medications: Active Outpatient Medications (including Supplies): Active Outpatient [...] 400MG BY MOUTH ACTIVE 17 Total Medications Current Problems: 1) Coronary arteriosclerosis 2) Obstructive sleep apnea syndrome 3) Erectile dysfunction 4) Tobacco use 5) Diabetes mellitus 6) Tobacco use 7) Obesity 8) Exposure to potentially hazardous substance Suicide Screen: Miller Suicide Severity Rating Scale (C-SSRS) screener 1. [...] required due to responses to other questions. /es/ REGULO NEGRETE RN BSN REGISTERED NURSE Signed: 12/18/2023 13:27 12/18/2023 ADDENDUM STATUS: COMPLETED Given per physician order: DIPHTH/PERTUSS/TET (TDAP) (ADACEL) INJ Instructions: 0.5 ML OF DIPHTH/PERTUSS/TET (TDAP) (ADACEL) INJ INTRAMUSCULAR ONE-TIME IM L deltoid Bacitracin applied and finger covered with bandage. Protective covering over finger. /quiana/ KELLEE CARCAMO RN REGISTERED NURSE Signed: 12/18/2023 13:51 REGULO NEGRETE [facility]
--- OUTSIDE RECORDS SUMMARY | 2024-08-23 11:01 | XMS_ITS | Continuity of Care Document ---
Author Name [facility] Organization [facility] Care Team Providers Care Excelsior Picker Name Role Phone [facility] Unavailable Unavailable Problems Combined list of problems from [facility] and [facility] facilities. It does not include entries that were removed or entered in error. 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 Diabetes mellitus Active Condition [facility] Erectile dysfunction Active Condition [facility] Exposure to potentially hazardous substance Active Condition [facility] Obesity Active Condition [facility] Obstructive sleep apnea syndrome Active Condition [facility] Tobacco use Active Condition [facility] Diagnosis: ICD-10-CM M25.562 Pain in left knee Active Diagnosis [facility] Diagnosis: ICD-10-CM E11.9 Type 2 diabetes mellitus without complications Active Diagnosis [facility] Diagnosis: ICD-10-CM Z72.0 Tobacco use Active Diagnosis [facility] Diagnosis: ICD-10-CM M79.644 Pain in right finger(s) Active Diagnosis [facility] Medications Combined list of outpatient medications from [facility] and [facility] facilities.Medications provided include 1) outpatient medications from the last 15 months, and 2) patient-reported medications. Medication Details Route Status Patient Instructions Prescription Expires Prescription Number Last Dispense Date Ordering Provider Order Date Order Qty Source ACETAMINOPH EN 500MG TAB TAKE TWO TABLETS BY MOUTH FOUR TIMES A DAY FOR PAIN CAUTION: DO NOT EXCEED 4000MG PER DAY ACETAMIN OPHEN (APAP) FROM ALL MEDS. ORAL 06/27/2024 [id number] LILIA NORTON 2023 80 [facility] DIVISIO N ATORVASTATI N CA 20MG TAB TAKE ONE TABLET BY MOUTH EVERY EVENING FOR CHOLESTE ROL. REPORT ANY UNEXPLAI CURTIS MUSCLE PAIN/WEA KNESS TO PROVIDER . ORAL ACTIVE 12/07/2024 [id number] 4 JE ARROYO 2023 90 [facility] DIVISIO N ATORVASTATI N CA 20MG TAB TAKE ONE TABLET BY MOUTH EVERY EVENING FOR CHOLESTE ROL. REPORT ANY UNEXPLAI CURTIS MUSCLE PAIN/WEA KNESS TO PROVIDER . ORAL 12/02/2023 [id number] 4 JE ARROYO 2022 90 [facility] DIVISIO N CEPHALEXIN 500MG CAP TAKE ONE CAPSULE BY MOUTH TWICE A DAY TAKE WITH FOOD. TAKE UNTIL GONE UNLESS OTHERWIS E DIRECTED . ORAL 01/17/2024 [id number] 4 SHENG OLIVEIRA 2023 14 [facility] DIVISIO N CHOLECALCIF BEKA (LOW DOSE VIT D) - (OTC) TAB TAKE BY MOUTH ONCE A DAY ORAL ACTIVE KRISHAN RODRIGUEZ 2021 [facility] DIVISIO N CLOPIDOGREL BISULFATE 75MG TAB TAKE ONE TABLET BY MOUTH ONCE A DAY TO THIN BLOOD ORAL ACTIVE 12/07/2024 [id number] 4 JE ARROYO 2023 90 [facility] DIVISIO N CLOPIDOGREL BISULFATE 75MG TAB TAKE ONE TABLET BY MOUTH ONCE A DAY TO THIN BLOOD ORAL 12/02/2023 [id number] 4 JE ARROYO 2022 90 [facility] DIVISIO N CYANOCOBALA MIN 1000MCG TAB TAKE ONE TABLET BY MOUTH ONCE A DAY ORAL ACTIVE KRISHAN RODRIGUEZ 2021 [facility] DIVISIO N DULOXETINE HCL 60MG CAP,EC TAKE ONE CAPSULE BY MOUTH ONCE A DAY DO NOT ABRUPTLY DISCONTI NUE MEDICATI ON. ORAL ACTIVE 12/07/2024 [id number] 4 JE [facility]YO 2023 [facility]MG CAP,EC TAKE ONE CAPSULE BY MOUTH ONCE A DAY DO NOT ABRUPTLY DISCONTI NUE MEDICATI ON. ORAL 12/02/2023 [id number] 4 ARROYOJE DWYER 2022 90 [facility] DIVISIO N EMPAGLIFLOZ IN 25MG TAB TAKE ONE-HALF TABLET BY MOUTH ONCE A DAY ORAL ACTIVE 12/07/2024 [id number] 4 JE ARROYO 2023 45 [facility] DIVISIO N EMPAGLIFLOZ IN 25MG TAB TAKE ONE-HALF TABLET BY MOUTH ONCE A DAY ORAL 12/02/2023 [id number] 4 JE ARROYO 2022 15 [facility] DIVISIO N ICOSAPENT ETHYL 1GM CAP TAKE TWO CAPSULES BY MOUTH TWICE A DAY WITH MEALS FOR TRIGLYCE RIDES ORAL ACTIVE 02/03/2025 [id number] 4 JE ARROYO 2023 360 [facility] DIVISIO N ICOSAPENT ETHYL 1GM CAP TAKE TWO CAPSULES BY MOUTH TWICE A DAY WITH MEALS FOR TRIGLYCE RIDES ORAL DISCONT INUED 02/25/2024 [id number] 4 JE ARROYO 2022 360 [facility] DIVISIO N LIRAGLUTIDE (EQV-VICTOZ A) 6MG/ML INJ,SOLN,PE N,3ML INJECT 1.8MG UNDER THE SKIN ONCE A DAY FOR DIABETES SUBCUT ANEOUS HOLD 03/02/2025 [id number] 4 JE ARROYO 2023 6 [facility] DIVISIO N LIRAGLUTIDE (EQV-VICTOZ A) 6MG/ML INJ,SOLN,PE N,3ML INJECT 1.8MG UNDER THE SKIN EVERY DAY FOR DIABETES SUBCUT ANEOUS 08/03/2024 [id number] 5 EMANUEL ADAMS H 2024 3 [facility] LIRAGLUTIDE (VICTOZA) 6MG/ML INJ PEN 3ML INJECT 1.8MG UNDER THE SKIN ONCE A DAY FOR DIABETES SUBCUT ANEOUS ACTIVE 03/02/2025 [id number] 4 JE ARROYO 2023 6 [facility] DIVISIO N LIRAGLUTIDE (VICTOZA) 6MG/ML INJ,SOLN,PE N,3ML INJECT 1.8MG UNDER THE SKIN ONCE A DAY FOR DIABETES SUBCUT ANEOUS DISCONT INUED 03/02/2025 [id number] 4 JE ARROYO 2023 6 [facility] DIVISIO N LIRAGLUTIDE (VICTOZA) 6MG/ML INJ,SOLN,PE N,3ML INJECT 1.8MG UNDER THE SKIN ONCE A DAY FOR DIABETES SUBCUT ANEOUS DISCONT INUED 02/25/2024 [id number] 4 JE ARROYO 2022 6 [facility] DIVISIO N MAGNESIUM OXIDE 400MG TAB TAKE ONE TABLET BY MOUTH ORAL ACTIVE KRISHAN RODRIGUEZ 2021 [facility] DIVISIO N METFORMIN HCL 1000MG TAB TAKE ONE TABLET BY MOUTH TWICE A DAY WITH MEALS FOR BLOOD SUGAR CONTROL. TAKE WITH FOOD. AVOID ALCOHOL. DISCONTI NUE BEFORE GETTING XRAY DYE. ORAL ACTIVE 02/03/2025 [id number] 4 JE ARROYO 2023 180 [facility] DIVISIO N METFORMIN HCL 1000MG TAB TAKE ONE TABLET BY MOUTH TWICE A DAY WITH MEALS FOR BLOOD SUGAR CONTROL. TAKE WITH FOOD. AVOID ALCOHOL. DISCONTI NUE BEFORE GETTING XRAY DYE. ORAL DISCONT INUED 02/25/2024 [id number] 4 JE ARROYO 2022 180 [facility] DIVISIO N METOPROLOL SUCCINATE 200MG TAB,SA TAKE ONE TABLET BY MOUTH ONCE A DAY FOR HEART/BL OOD PRESSURE . SWALLOW WHOLE, DO NOT CRUSH OR CHEW (TABLETS MAY BE CUT IN HALF). ORAL ACTIVE 12/07/2024 [id number] JE ARROYO HONEYADELIA 2023 90 [facility] DIVISIO N METOPROLOL SUCCINATE 200MG TAB,SA TAKE ONE TABLET BY MOUTH ONCE A DAY FOR HEART/BL OOD PRESSURE . SWALLOW WHOLE, DO NOT CRUSH OR CHEW (TABLETS MAY BE CUT IN HALF). ORAL 12/02/2023 [id number] 4 JE ARROYO KIMBER [address] [place] [address] DIVISIO N MORPHINE SO4 15MG TAB TAKE ONE-HALF TABLET BY MOUTH TWICE DAILY NEEDED FOR SEVERE PAIN MAY CAUSE CONSTIPA TION. ORAL 06/27/2024 [id number] LILIA NORTON 2023 7 [facility] DIVISIO N OMEPRAZOLE 20MG CAP,EC TAKE ONE CAPSULE BY MOUTH EVERY MORNING TO LOWER STOMACH ACID. TAKE 30 MINUTES PRIOR TO FOOD. ORAL ACTIVE 12/07/2024 [id number] 4 ARROYOJE KIMBER [address] [place] [address] DIVISIO N OMEPRAZOLE 20MG CAP,EC TAKE ONE CAPSULE BY MOUTH EVERY MORNING TO LOWER STOMACH ACID. TAKE 30 MINUTES PRIOR TO FOOD. ORAL 12/02/2023 [id number] 4 JE ARROYO KIMBER [address] [place] [address] DIVISIO N OXYBUTYNIN CL 10MG TAB,SA TAKE ONE TABLET BY MOUTH ONCE A DAY FOR BLADDER. SWALLOW WHOLE, DO NOT CRUSH OR CHEW. ORAL ACTIVE 12/07/2024 [id number] 4 JE ARROYO KIMBER [address] [place] [address] DIVISIO N OXYBUTYNIN CL 10MG TAB,SA TAKE ONE TABLET BY MOUTH ONCE A DAY FOR BLADDER. SWALLOW WHOLE, DO NOT CRUSH OR CHEW. ORAL 12/02/2023 [id number] 4 ARROYOJE QUIROGA [address] [place] [address] DIVISIO N PREDNISOLON E ACETATE 1% SUSP,OPH INSTILL 1 DROP IN RIGHT EYE FOUR TIMES A DAY FOR EYE INFLAMMA TION OPHTHA LMIC 02/25/2024 [id number] 4 JE ARROYO 2022 5 [facility] DIVISIO N SACUBITRIL 97MG/VALSAR HERNANDEZ 103MG TAB TAKE 1 TABLET BY MOUTH TWICE A DAY FOR HEART ORAL ACTIVE 12/07/2024 [id number] 4 JE ARROYO 2023 180 [facility] DIVISIO N SACUBITRIL 97MG/VALSAR HERNANDEZ 103MG TAB TAKE 1 TABLET BY MOUTH TWICE A DAY FOR HEART ORAL 12/02/2023 [id number] 4 JE ARROYO 2022 180 [facility] DIVISIO N SPIRONOLACT ONE 25MG TAB TAKE ONE TABLET BY MOUTH ONCE A DAY ORAL ACTIVE 12/07/2024 [id number] 4 JE ARROYO 2023 90 [facility] DIVISIO N SPIRONOLACT ONE 25MG TAB TAKE ONE TABLET BY MOUTH ONCE A DAY ORAL 12/02/2023 [id number] 4 JE ARROYO 2022 90 [facility] DIVISIO N TAMSULOSIN HCL 0.4MG CAP TAKE ONE CAPSULE BY MOUTH ONCE A DAY APPROXIM ATELY 30 MINUTES AFTER THE SAME MEAL EACH DAY (FOR PROSTATE ) ORAL ACTIVE 12/07/2024 [id number] JE ARROYO 2023 90 [facility] DIVISIO N TAMSULOSIN HCL 0.4MG CAP TAKE ONE CAPSULE BY MOUTH ONCE A DAY APPROXIM ATELY 30 MINUTES AFTER THE SAME MEAL EACH DAY (FOR PROSTATE ) ORAL DISCONT INUED 12/02/2023 [id number] 4 JE ARROYO 2022 30 [facility] DIVISIO N TAMSULOSIN HCL 0.4MG CAP TAKE ONE CAPSULE BY MOUTH ONCE A DAY APPROXIM ATELY 30 MINUTES AFTER THE SAME MEAL EACH DAY (FOR PROSTATE ) ORAL 12/02/2023 [id number] 4 JE ARROYO UREEN 2023 90 [facility] DIVISIO N Allergies, Adverse Reactions, Alerts Combined list of allergies from [facility] and [facility] facilities. It does not include entries that were removed or entered in error. Substance Category Reaction Severity Reaction type Status Date Reported Comments Source AMOXIL Propensity to adverse reactions to drug (finding) Urticaria active 5 [facility] DEFINITY Propensity to adverse reactions to drug (finding) Paresthesia active 1 [facility] LISINOPRIL Propensity to adverse reactions to drug (finding) Cough active 0 [facility] Immunizations Combined list of available immunizations from the Department of [facility] and [facility] facilities. Immunization Series Date Given Administered By Site Reaction Lot Number CVX Code Drug Gun Examiner Status Comments Source INFLUENZA, UNSPECIFIED FORMULATION 2023 88 complet ed per [facility] INFLUENZA, UNSPECIFIED FORMULATION 2022 88 complet ed [facility] COVID-19 (PFIZER), MRNA, LNP-S, PF, 30 MCG/0.3 ML DOSE, DANITA-SUCROSE (AGES 12+ YEARS) 2021 217 complet ed [facility] DIVISIO N INFLUENZA, UNSPECIFIED FORMULATION 2020 88 complet ed [facility] COVID-19 (MODERNA), MRNA, LNP-S, PF, 100 MCG/0.5ML DOSE OR 50 MCG/0.25ML DOSE 2020 207 complet ed [facility] DIVISIO N COVID-19 (MODERNA), MRNA, LNP-S, PF, 100 MCG/0.5ML DOSE OR 50 MCG/0.25ML DOSE 2 2020 207 complet ed [facility] DIVISIO N COVID-19 (MODERNA), MRNA, LNP-S, PF, 100 MCG/0.5ML DOSE OR 50 MCG/0.25ML DOSE 1 2020 207 complet ed [facility] DIVISIO N INFLUENZA, UNSPECIFIED FORMULATION 2019 88 complet ed [facility] INFLUENZA, UNSPECIFIED FORMULATION 2018 88 complet ed [facility] DIVISIO N ZOSTER RECOMBINANT 2 2018 187 complet ed [facility] DIVISIO N ZOSTER RECOMBINANT 1 2018 187 complet ed [facility] DIVISIO N INFLUENZA, INJECTABLE, QUADRIVALENT, PRESERVATIVE FREE 2017 150 complet ed [facility] DIVISIO N INFLUENZA, UNSPECIFIED FORMULATION 2016 88 complet ed [facility] PNEUMOCOCCAL POLYSACCHARID E PPV23 2016 33 complet ed [facility] DIVISIO N ZOSTER LIVE 2016 121 complet ed [facility] DIVISIO N PNEUMOCOCCAL CONJUGATE PCV 13 2015 133 complet ed [facility] DIVISIO N TDAP 2015 115 complet ed Left Deltoid [facility] DIVISIO N Results Combined list of recent chemistry, hematology and other laboratory results from [facility], ranging from 15 months to all on record, depending upon the facility. Order Name Results Value Reference Range Date Interpretation Specimen Comments Source [id number] HEMOGLOBIN A1C/HEMOGLO BIN.TOTAL IN BLOOD 7.1 4.0 - 6.0 02/02 H Specimen Type: BLOOD No comment entered. Ordering Provider: MIGUELITO ARROYO Report Released Date/Time: Feb 03, 2024 11:27 AM Reporting Lab: [facility] [phone] Performing Lab: [facility] [phone] [facility] DIVISION VITAMIN D, 25-HYDROX Y 25-HYDROXYV ITAMIN D3 [MASS/VOLUM E] IN SERUM OR PLASMA 41.2 ng/mL 30 - 96 02/02 Specimen Type: SERUM No comment entered. Ordering Provider: MIGUELITO ARROYO Report Released Date/Time: Feb 03, 2024 11:27 AM Reporting Lab: [facility] [place] [phone] Performing Lab: [facility] LIPID PANEL (STL) CHOLESTEROL [MASS/VOLUM E] IN SERUM OR PLASMA 101 mg/dL 0 - 200 02/02 Specimen Type: PLASMA Comment: No hemolysis noted. Ordering Provider: MIGUELITO ARROYO Report Released Date/Time: Feb 03, 2024 11:27 AM Reporting Lab: [facility] [place] [id number] Performing Lab: [facility] LIPID PANEL (STL) TRIGLYCERID E [MASS/VOLUM E] IN SERUM OR PLASMA 126 mg/dL 0 - 150 02/02 Specimen Type: PLASMA Comment: No hemolysis noted. Ordering Provider: MIGUELITO ARROYO Report Released Date/Time: Feb 03, 2024 11:27 AM Reporting Lab: [facility] [place] [id number] Performing Lab: [facility] LIPID PANEL (STL) CHOLESTEROL IN LDL [MASS/VOLUM E] IN SERUM OR PLASMA BY CALCULATION 46 mg/dL 02/02 Specimen Type: PLASMA Comment: No hemolysis noted. Ordering Provider: MIGUELITO ARROYO Report Released Date/Time: Feb 03, 2024 11:27 AM Reporting Lab: [facility] [place] [address] Performing Lab: [facility] LIPID PANEL (STL) CHOLESTEROL IN HDL [MASS/VOLUM E] IN SERUM OR PLASMA 30 mg/dL 40 02/02 L Specimen Type: PLASMA Comment: No hemolysis noted. Ordering Provider: MIGUELITO ARROYO Report Released Date/Time: Feb 03, 2024 11:27 AM Reporting Lab: [facility] [place] [address] Performing Lab: [facility] DIVISION TSH (MA-PB) THYROTROPIN [UNITS/VOLU ME] IN SERUM OR PLASMA 0.426 u[IU]/ mL 0.470 - 5.000 02/02 L Specimen Type: SERUM No comment entered. Ordering Provider: MIGUELITO ARROYO Report Released Date/Time: Feb 03, 2024 11:27 AM Reporting Lab: [facility] [place] [address] Performing Lab: [facility] TSH (MA-PB) THYROXINE (T4) FREE [MASS/VOLUM E] IN SERUM OR PLASMA 1.02 ng/mL 0.70 - 1.48 02/02 Specimen Type: SERUM No comment entered. Ordering Provider: MIGUELITO ARROYO Report Released Date/Time: Feb 03, 2024 11:27 AM Reporting Lab: [facility] [place] [address] Performing Lab: [facility] DIVISION COMPREHEN SIVE METABOLIC PANEL CREATININE [MASS/VOLUM E] IN SERUM OR PLASMA 1.22 mg/dL 0.70 - 1.30 02/02 Specimen Type: PLASMA Comment: No hemolysis noted. Ordering Provider: MIGUELITO ARROYO Report Released Date/Time: Feb 03, 2024 11:27 AM Reporting Lab: [facility] [place] [address] Performing Lab: [facility] DIVISION COMPREHEN SIVE METABOLIC PANEL UREA NITROGEN [MASS/VOLUM E] IN SERUM OR PLASMA 16.8 mg/dL 9.0 - 25.0 02/02 Specimen Type: PLASMA Comment: No hemolysis noted. Ordering Provider: MIGUELITO ARROYO Report Released Date/Time: Feb 03, 2024 11:27 AM Reporting Lab: [facility] [place] [address] Performing Lab: [facility] DIVISION COMPREHEN SIVE METABOLIC PANEL GLUCOSE [MASS/VOLUM E] IN SERUM OR PLASMA 142 mg/dL 72 - 99 02/02 H Specimen Type: PLASMA Comment: No hemolysis noted. Ordering Provider: MIGUELITO ARROYO Report Released Date/Time: Feb 03, 2024 11:27 AM Reporting Lab: [facility] [place] [id number] Performing Lab: [facility] DIVISION COMPREHEN SIVE METABOLIC PANEL SODIUM [MOLES/VOLU ME] IN SERUM OR PLASMA 138 meq/L 136 - 145 02/02 Specimen Type: PLASMA Comment: No hemolysis noted. Ordering Provider: MIGUELITO ARROYO Report Released Date/Time: Feb 03, 2024 11:27 AM Reporting Lab: [facility] [place] [address] Performing Lab: [facility] DIVISION COMPREHEN SIVE METABOLIC PANEL POTASSIUM [MOLES/VOLU ME] IN SERUM OR PLASMA 4.9 meq/L 3.5 - 5.0 02/02 Specimen Type: PLASMA Comment: No hemolysis noted. Ordering Provider: MIGUELITO ARROYO Report Released Date/Time: Feb 03, 2024 11:27 AM Reporting Lab: [facility] [place] [address] Performing Lab: [facility] DIVISION COMPREHEN SIVE METABOLIC PANEL CHLORIDE [MOLES/VOLU ME] IN SERUM OR PLASMA 103 meq/L 98 - 107 02/02 Specimen Type: PLASMA Comment: No hemolysis noted. Ordering Provider: MIGUELITO ARROYO Report Released Date/Time: Feb 03, 2024 11:27 AM Reporting Lab: [facility] [place] [address] Performing Lab: [facility] DIVISION COMPREHEN SIVE METABOLIC PANEL CARBON DIOXIDE, TOTAL [MOLES/VOLU ME] IN SERUM OR PLASMA 27 meq/L 22 - 31 02/02 Specimen Type: PLASMA Comment: No hemolysis noted. Ordering Provider: MIGUELITO ARROYO Report Released Date/Time: Feb 03, 2024 11:27 AM Reporting Lab: [facility] [place] [id number] Performing Lab: [facility] DIV[facility] DIVISION COMPREHEN SIVE METABOLIC PANEL CALCIUM [MASS/VOLUM E] IN SERUM OR PLASMA 9.4 mg/dL 8.4 - 10.4 02/02 Specimen Type: PLASMA Comment: No hemolysis noted. Ordering Provider: MIGUELITO ARROYO Report Released Date/Time: Feb 03, 2024 11:27 AM Reporting Lab: [facility] [place] [address] Performing Lab: [facility] DIV[facility] DIVISION COMPREHEN SIVE METABOLIC PANEL PROTEIN [MASS/VOLUM E] IN SERUM OR PLASMA 6.9 g/dL 6.0 - 8.6 02/02 Specimen Type: PLASMA Comment: No hemolysis noted. Ordering Provider: MIGUELITO ARROYO Report Released Date/Time: Feb 03, 2024 11:27 AM Reporting Lab: [facility] [place] [address] Performing Lab: [facility] DIV[facility] DIVISION COMPREHEN SIVE METABOLIC PANEL ALBUMIN [MASS/VOLUM E] IN SERUM OR PLASMA 4.0 g/dL 3.4 - 5.0 02/02 Specimen Type: PLASMA Comment: No hemolysis noted. Ordering Provider: MIGUELITO ARROYO Report Released Date/Time: Feb 03, 2024 11:27 AM Reporting Lab: [facility] [place] [address] Performing Lab: [facility] DIVISION COMPREHEN SIVE METABOLIC PANEL BILIRUBIN.T OTAL [MASS/VOLUM E] IN SERUM OR PLASMA 0.3 mg/dL 0.2 - 1.2 02/02 Specimen Type: PLASMA Comment: No hemolysis noted. Ordering Provider: MIGUELITO ARROYO Report Released Date/Time: Feb 03, 2024 11:27 AM Reporting Lab: [facility] [place] [address] Performing Lab: [facility] DIVISION COMPREHEN SIVE METABOLIC PANEL ALKALINE PHOSPHATASE [ENZYMATIC ACTIVITY/VO LUME] IN SERUM OR PLASMA 97 U/L 40 - 150 02/02 Specimen Type: PLASMA Comment: No hemolysis noted. Ordering Provider: MIGUELITO ARROYO Report Released Date/Time: Feb 03, 2024 11:27 AM Reporting Lab: [facility] [place] [address] Performing Lab: [facility] DIVISION COMPREHEN SIVE METABOLIC PANEL ASPARTATE AMINOTRANSF ERASE [ENZYMATIC ACTIVITY/VO LUME] IN SERUM OR PLASMA 17 U/L 5 - 34 02/02 Specimen Type: PLASMA Comment: No hemolysis noted. Ordering Provider: MIGUELITO ARROYO Report Released Date/Time: Feb 03, 2024 11:27 AM Reporting Lab: [facility] [place] [address] Performing Lab: [facility] DIV[facility] DIVISION COMPREHEN SIVE METABOLIC PANEL ALANINE AMINOTRANSF ERASE [ENZYMATIC ACTIVITY/VO LUME] IN SERUM OR PLASMA 12 U/L 8 - 40 02/02 Specimen Type: PLASMA Comment: No hemolysis noted. Ordering Provider: MIGUELITO ARROYO Report Released Date/Time: Feb 03, 2024 11:27 AM Reporting Lab: [facility] [place] [address] Performing Lab: [facility] DIVISION COMPREHEN SIVE METABOLIC PANEL GLOMERULAR FILTRATION RATE/1.73 SQ M.PREDICTED [VOLUME RATE/AREA] IN SERUM, PLASMA OR BLOOD BY CREATININE- BASED FORMULA (CKD-EPI 2020) 61.44 60 02/02 Specimen Type: PLASMA Comment: No hemolysis noted. Ordering Provider: MIGUELITO ARROYO Report Released Date/Time: Feb 03, 2024 11:27 AM Reporting Lab: [facility] [place] [address] Performing Lab: [facility] DIVISION CBC LEUKOCYTES [#/VOLUME] IN BLOOD BY AUTOMATED COUNT 7.7 10*3/u L 3.6 - 11.2 02/02 Specimen Type: BLOOD No comment entered. Ordering Provider: MIGUELITO ARROYO Report Released Date/Time: Feb 03, 2024 11:27 AM Reporting Lab: [facility] [place] [address] Performing Lab: [facility] [id number] DIVISION CBC ERYTHROCYTE S [#/VOLUME] IN BLOOD BY AUTOMATED COUNT 4.25 10*6/u L 4.10 - 5.70 02/02 Specimen Type: BLOOD No comment entered. Ordering Provider: MIGUELITO ARROYO Report Released Date/Time: Feb 03, 2024 11:27 AM Reporting Lab: [facility] [place] [address] Performing Lab: [facility] CBC HEMOGLOBIN [MASS/VOLUM E] IN BLOOD 13.3 g/dL 13.1 - 16.8 02/02 Specimen Type: BLOOD No comment entered. Ordering Provider: MIGUELITO ARROYO Report Released Date/Time: Feb 03, 2024 11:27 AM Reporting Lab: [facility] [place] [address] Performing Lab: [facility] CBC HEMATOCRIT [VOLUME FRACTION] OF BLOOD 39.6 38.2 - 48.4 02/02 Specimen Type: BLOOD No comment entered. Ordering Provider: MIGUELITO ARROYO Report Released Date/Time: Feb 03, 2024 11:27 AM Reporting Lab: [facility] [place] [id number] Performing Lab: [facility] CBC MCV [ENTITIC VOLUME] BY AUTOMATED COUNT 93.2 fL 80.0 - 100.0 02/02 Specimen Type: BLOOD No comment entered. Ordering Provider: MIGUELITO ARROYO Report Released Date/Time: Feb 03, 2024 11:27 AM Reporting Lab: [facility] [place] [id number] Performing Lab: [facility] [place] [id number] DIVISION CBC MCH [ENTITIC MASS] BY AUTOMATED COUNT 31.3 pg 27.0 - 34.0 02/02 Specimen Type: BLOOD No comment entered. Ordering Provider: MIGUELITO ARROYO Report Released Date/Time: Feb 03, 2024 11:27 AM Reporting Lab: [facility] [place] [id number] Performing Lab: [facility] DIVISION CBC MCHC [MASS/VOLUM E] BY AUTOMATED COUNT 33.6 g/dL 33.0 - 36.0 02/02 Specimen Type: BLOOD No comment entered. Ordering Provider: MIGUELITO ARROYO Report Released Date/Time: Feb 03, 2024 11:27 AM Reporting Lab: [facility] [place] [id number] Performing Lab: [facility] [facility] DIVISION CBC PLATELETS [#/VOLUME] IN BLOOD BY AUTOMATED COUNT 213 10*3/u L 150 - 400 02/02 Specimen Type: BLOOD No comment entered. Ordering Provider: MIGUELITO ARROYO Report Released Date/Time: Feb 03, 2024 11:27 AM Reporting Lab: [facility] [place] [id number] Performing Lab: [facility] DIVISION CBC PLATELET MEAN VOLUME [ENTITIC VOLUME] IN BLOOD BY AUTOMATED COUNT 10.6 fL 7.5 - 11.2 02/02 Specimen Type: BLOOD No comment entered. Ordering Provider: MIGUELITO ARROYO Report Released Date/Time: Feb 03, 2024 11:27 AM Reporting Lab: [facility] [id number] Performing Lab: [facility]1 [facility] [id number] DIVISION CBC ERYTHROCYTE DISTRIBUTIO N WIDTH [RATIO] BY AUTOMATED COUNT 13.2 11.8 - 15.1 02/02 Specimen Type: BLOOD No comment entered. Ordering Provider: MIGUELITO ARROYO Report Released Date/Time: Feb 03, 2024 11:27 AM Reporting Lab: [facility] [place] [id number] Performing Lab: [facility] DIVISION CBC LYMPHOCYTES /100 LEUKOCYTES IN BLOOD BY AUTOMATED COUNT 40 02/02 Specimen Type: BLOOD No comment entered. Ordering Provider: MIGUELITO ARROYO Report Released Date/Time: Feb 03, 2024 11:27 AM Reporting Lab: [facility] [place] [id number] Performing Lab: [facility] DIVISION CBC MONOCYTES/1 00 LEUKOCYTES IN BLOOD BY AUTOMATED COUNT 7 02/02 Specimen Type: BLOOD No comment entered. Ordering Provider: MIGUELITO ARROYO Report Released Date/Time: Feb 03, 2024 11:27 AM Reporting Lab: [facility] [place] [id number] Performing Lab: [facility] DIVISION CBC NEUTROPHILS /100 LEUKOCYTES IN BLOOD BY AUTOMATED COUNT 51 02/02 Specimen Type: BLOOD No comment entered. Ordering Provider: MIGUELITO ARROYO Report Released Date/Time: Feb 03, 2024 11:27 AM Reporting Lab: [facility]1 [place] [address] Performing Lab: [facility]1 [place] [phone] DIVISION CBC EOSINOPHILS /100 LEUKOCYTES IN BLOOD BY AUTOMATED COUNT 3 02/02 Specimen Type: BLOOD No comment entered. Ordering Provider: MIGUELITO ARROYO Report Released Date/Time: Feb 03, 2024 11:27 AM Reporting Lab: [facility] [place] [address] Performing Lab: [facility] DIVISION CBC BASOPHILS/1 00 LEUKOCYTES IN BLOOD BY AUTOMATED COUNT 0 02/02 Specimen Type: BLOOD No comment entered. Ordering Provider: MIGUELITO ARROYO Report Released Date/Time: Feb 03, 2024 11:27 AM Reporting Lab: [facility] [place] [address] Performing Lab: [facility] DIVISION CBC LYMPHOCYTES [#/VOLUME] IN BLOOD BY AUTOMATED COUNT 3.04 10*3/u L 0.77 - 4.50 02/02 Specimen Type: BLOOD No comment entered. Ordering Provider: MIGUELITO ARROYO Report Released Date/Time: Feb 03, 2024 11:27 AM Reporting Lab: [facility] [place] [address] Performing Lab: [facility] DIVISION CBC MONOCYTES [#/VOLUME] IN BLOOD BY AUTOMATED COUNT 0.50 10*3/u L 0.19 - 0.80 02/02 Specimen Type: BLOOD No comment entered. Ordering Provider: MIGUELITO ARROYO Report Released Date/Time: Feb 03, 2024 11:27 AM Reporting Lab: [facility] [place] [address] Performing Lab: [facility] DIVISION CBC NEUTROPHILS [#/VOLUME] IN BLOOD BY AUTOMATED COUNT 3.90 10*3/u L 2.10 - 8.00 02/02 Specimen Type: BLOOD No comment entered. Ordering Provider: MIGUELITO ARROYO Report Released Date/Time: Feb 03, 2024 11:27 AM Reporting Lab: [facility]1 [place] [address] Performing Lab: [facility] DIVISION CBC EOSINOPHILS [#/VOLUME] IN BLOOD BY AUTOMATED COUNT 0.21 10*3/u L 0.00 - 0.60 02/02 Specimen Type: BLOOD No comment entered. Ordering Provider: MIGUELITO ARROYO Report Released Date/Time: Feb 03, 2024 11:27 AM Reporting Lab: [facility]1 [place] [address] Performing Lab: [facility] DIVISION CBC BASOPHILS [#/VOLUME] IN BLOOD BY AUTOMATED COUNT 0.03 10*3/u L 0.00 - 0.20 02/02 Specimen Type: BLOOD No comment entered. Ordering Provider: MIGUELITO ARROYO Report Released Date/Time: Feb 03, 2024 11:27 AM Reporting Lab: [facility]1 [place] [address] Performing Lab: [facility] DIVISION BASIC METABOLIC PANEL CREATININE [MASS/VOLUM E] IN SERUM OR PLASMA 1.34 mg/dL 0.70 - 1.30 02/07 H Specimen Type: PLASMA Comment: No hemolysis noted. Ordering Provider: MIGUELITO ARROYO Report Released Date/Time: Feb 04, 2023 07:18 AM Reporting Lab: [facility]1 [facility] [phone] Performing Lab: [facility]1 [facility] [phone] DIVISION BASIC METABOLIC PANEL UREA NITROGEN [MASS/VOLUM E] IN SERUM OR PLASMA 19.2 mg/dL 9.0 - 25.0 02/07 Specimen Type: PLASMA Comment: No hemolysis noted. Ordering Provider: MIGUELITO ARROYO Report Released Date/Time: Feb 04, 2023 07:18 AM Reporting Lab: [facility] [place] [address] Performing Lab: [facility] BASIC METABOLIC PANEL GLUCOSE [MASS/VOLUM E] IN SERUM OR PLASMA 122 mg/dL 72 - 99 02/07 H Specimen Type: PLASMA Comment: No hemolysis noted. Ordering Provider: MIGUELITO ARROYO Report Released Date/Time: Feb 04, 2023 07:18 AM Reporting Lab: [facility] [place] [address] Performing Lab: [facility] DIVISION BASIC METABOLIC PANEL SODIUM [MOLES/VOLU ME] IN SERUM OR PLASMA 136 meq/L 136 - 145 02/07 Specimen Type: PLASMA Comment: No hemolysis noted. Ordering Provider: MIGUELITO ARROYO Report Released Date/Time: Feb 04, 2023 07:18 AM Reporting Lab: [facility]1 [place] [address] Performing Lab: [facility] DIVISION BASIC METABOLIC PANEL POTASSIUM [MOLES/VOLU ME] IN SERUM OR PLASMA 5.2 meq/L 3.5 - 5.0 02/07 H Specimen Type: PLASMA Comment: No hemolysis noted. Ordering Provider: MIGUELITO ARROYO Report Released Date/Time: Feb 04, 2023 07:18 AM Reporting Lab: [facility] [place] [address] Performing Lab: [facility] BASIC METABOLIC PANEL CHLORIDE [MOLES/VOLU ME] IN SERUM OR PLASMA 103 meq/L 98 - 107 02/07 Specimen Type: PLASMA Comment: No hemolysis noted. Ordering Provider: MIGUELITO ARROYO Report Released Date/Time: Feb 04, 2023 07:18 AM Reporting Lab: [facility] [place] [address] Performing Lab: [facility] BASIC METABOLIC PANEL CARBON DIOXIDE, TOTAL [MOLES/VOLU ME] IN SERUM OR PLASMA 25 meq/L 22 - 31 02/07 Specimen Type: PLASMA Comment: No hemolysis noted. Ordering Provider: MIGUELITO ARROYO Report Released Date/Time: Feb 04, 2023 07:18 AM Reporting Lab: [facility]1 [place] [address] Performing Lab: [facility] BASIC METABOLIC PANEL CALCIUM [MASS/VOLUM E] IN SERUM OR PLASMA 9.5 mg/dL 8.4 - 10.4 02/07 Specimen Type: PLASMA Comment: No hemolysis noted. Ordering Provider: MIGUELITO ARROYO Report Released Date/Time: Feb 04, 2023 07:18 AM Reporting Lab: [facility]1 [place] [address] Performing Lab: [facility] BASIC METABOLIC PANEL GLOMERULAR FILTRATION RATE/1.73 SQ M.PREDICTED [VOLUME RATE/AREA] IN SERUM, PLASMA OR BLOOD BY CREATININE- BASED FORMULA (CKD-EPI 2020) 55.24 60 02/07 Specimen Type: PLASMA Comment: No hemolysis noted. Ordering Provider: MIGULEITO ARROYO Report Released Date/Time: Feb 04, 2023 07:18 AM Reporting Lab: [facility]1 [place] [address] Performing Lab: [facility] DIVISION LIPID PANEL (STL) CHOLESTEROL [MASS/VOLUM E] IN SERUM OR PLASMA 95 mg/dL 0 - 200 02/03 Specimen Type: PLASMA Comment: No hemolysis noted. Ordering Provider: MIGUELITO ARROYO Report Released Date/Time: Feb 03, 2023 03:24 PM Reporting Lab: [facility]1 [place] [address] Performing Lab: [facility] DIVISION LIPID PANEL (STL) TRIGLYCERID E [MASS/VOLUM E] IN SERUM OR PLASMA 154 mg/dL 0 - 150 02/03 H Specimen Type: PLASMA Comment: No hemolysis noted. Ordering Provider: MIGUELITO ARROYO Report Released Date/Time: Feb 03, 2023 03:24 PM Reporting Lab: [facility]1 [place] [address] Performing Lab: [facility] LIPID PANEL (STL) CHOLESTEROL IN LDL [MASS/VOLUM E] IN SERUM OR PLASMA BY CALCULATION 35 mg/dL 02/03 Specimen Type: PLASMA Comment: No hemolysis noted. Ordering Provider: MIGUELITO ARROYO Report Released Date/Time: Feb 03, 2023 03:24 PM Reporting Lab: [facility]1 [place] [address] Performing Lab: [facility] [facility] DIV[facility] LIPID PANEL (STL) CHOLESTEROL IN HDL [MASS/VOLUM E] IN SERUM OR PLASMA 29 mg/dL 40 02/03 L Specimen Type: PLASMA Comment: No hemolysis noted. Ordering Provider: MIGUELITO ARROYO Report Released Date/Time: Feb 03, 2023 03:24 PM Reporting Lab: [facility]1 [place] [address] Performing Lab: [facility] DIVISION PROST. SPECIFIC AG.(PB-ST L) PROSTATE SPECIFIC AG [MASS/VOLUM E] IN SERUM OR PLASMA 0.466 ng/mL 0.000 - 4.000 02/03 Specimen Type: SERUM Comment: The listed sex of this patient may not be a typical indication for this test. Therefore, reference ranges or interpretiv e criteria listed may not be valid. Clinical correlation suggested. Ordering Provider: MIGUELITO ARROYO Report Released Date/Time: Feb 03, 2023 03:24 PM Reporting Lab: [facility]1 [place] [address] Performing Lab: [facility] DIVISION TSH (MA-PB-ST L) THYROTROPIN [UNITS/VOLU ME] IN SERUM OR PLASMA 1.187 u[IU]/ mL 0.470 - 5.000 02/03 Specimen Type: SERUM Comment: The listed sex of this patient may not be a typical indication for this test. Therefore, reference ranges or interpretiv e criteria listed may not be valid. Clinical correlation suggested. Ordering Provider: MIGUELITO ARROYO Report Released Date/Time: Feb 03, 2023 03:24 PM Reporting Lab: [facility]1 [place] [address] Performing Lab: [facility] DIVISION Vital Signs Combined list of inpatient and outpatient Vital Signs from Department of Defense and Veterans Affairs, ranging from 12 months to all on record, depending upon the facility. Vital Sign Value Date Comments Source SYSTOLIC BLOOD PRESSURE 125 05/28/2024 12:58:00 [facility] DIASTOLIC BLOOD PRESSURE 72 05/28/2024 12:58:00 [facility] DIVISION PAIN 4 05/28/2024 12:58:00 [facility] DIVISION TEMPERATURE 97.9 05/28/2024 12:58:00 [facility] PULSE 76 05/28/2024 12:58:00 [facility] RESPIRATION 16 05/28/2024 12:58:00 [facility] SYSTOLIC BLOOD PRESSURE 108 02/03/2024 10:59:39 [facility] DIASTOLIC BLOOD PRESSURE 63 02/03/2024 10:59:39 [facility] PULSE OXIMETRY 96 02/03/2024 10:59:39 [facility] DIV[facility] WEIGHT 223 02/03/2024 10:59:39 [facility] DIV[facility] BMI 35 kg/m2 02/03/2024 10:59:39 [facility] DIV[facility] PAIN 0 02/03/2024 10:59:39 [facility] TEMPERATURE 97.7 02/03/2024 10:59:39 [facility] PULSE 78 02/03/2024 10:59:39 [facility] DIV[facility] RESPIRATION 20 02/03/2024 10:59:39 [facility] SYSTOLIC BLOOD PRESSURE 133 12/18/2023 13:26:00 [facility] DIASTOLIC BLOOD PRESSURE 90 12/18/2023 13:26:00 [facility] DIV[facility] PAIN 3 12/18/2023 13:26:00 [facility] DIVISION TEMPERATURE 98 12/18/2023 13:26:00 [facility] DIV[facility] PULSE 90 12/18/2023 13:26:00 [facility] RESPIRATION 18 12/18/2023 13:26:00 [facility] Encounters Combined list of: 1) Encounters from Department of Veterans Affairs facilities going backup to the last 18 months, not all VA inpatient encounters are included; 2) Encounters from the Department of Defense facilities going backup to 280 months. Location Location Details Encounter Type Encounter Number Reason For Visit Attending Provider ADM Date DC Date Status Disposition Source [facility] Outpatient Encounter [id number] 02/24 [facility] Outpatient Encounter [id number] 02/24 [facility] Outpatient Encounter [id number] 02/24 [facility] Outpatient Encounter [id number] 04/21 [facility] Outpatient Encounter [id number] 05/26 [facility] Outpatient Encounter [id number] 07/22 [facility] Outpatient Encounter [id number] 09/13 [facility] Outpatient Encounter [id number] MICHELLE HARMAN 09/22 [facility] Outpatient Encounter [id number] EDUARDO SAWANT 12/06 [facility] EMERGENCY DEPT VISIT MOD MDM [id number] Diagnos is: ICD-10- CM M79.644 Pain in right finger( s) HECTOR OLIVEIRA S 12/17 [facility] Outpatient Encounter [id number] HECTOR OLIVEIRA S 12/17 [facility] Outpatient Encounter [id number] 01/22 [facility] OFFICE O/P EST MOD 30 MIN [id number] Diagnos is: ICD-10- CM Z72.0 Tobacco use MARGY ARROYO 02/02 [facility] OFFICE O/P EST MOD 30 MIN [id number] Diagnos is: ICD-10- CM E11.9 Type 2 diabete s mellitu s without complic ations TABBY MONROY 02/09 [facility] Outpatient Encounter [id number] 02/28 [facility] QNHP OL DIG ASSMT&MGMT 5-10 [id number] Diagnos is: ICD-10- CM E11.9 Type 2 diabete s mellitu s without complic ations DIYA ORTEGA 03/01 [facility] Outpatient Encounter [id number] 04/20 [facility] Outpatient Encounter [id number] [place]ALL[place],O AUG 22 [facility] DIV[facility] N [facility] EMERGENCY DEPT VISIT LOW MDM [id number] Diagnos is: ICD-10- CM M25.562 Pain in left knee MUDALLAL,O AUG 22 [facility] N [facility] Outpatient Encounter [id number] [place],O AUG 22 [facility] N [facility] Outpatient Encounter [id number] 07/12 [facility] Social History Combined list of available smoking, tobacco, and other social history from Department of Defense and Veterans Affairs facilities. Social History Type Response Date Comment Sour e Tobacco smoking status NHIS VA-TOBACCO NEVER USED 02/03/2024 [facility] History of tobacco use SC-TOBACCO USER E VERY DAY 02/03/2023 [facility] History of tobacco use SC-TOBACCO USER E VERY DAY 08/18/2021 [facility] History of tobacco use VA-TOBACCO USER E VERY DAY 08/19/2020 [facility] History of tobacco use SC-TOBACCO USE CO UNSEL NO 08/14/2019 [facility]2018 [facility] History of tobacco use TOBACCO USER OFFE RED MEDS 08/09/2017 [facility] History of tobacco use LIFETIME NON-USER OF TOBACCO 01/31/2017 [facility] History of tobacco use CURRENT TOBACCO USER 09/26/2015 [facility] History of tobacco use LIFETIME NON-USER OF TOBACCO 10/14/2014 [facility] Plan of Care List of future care activities from Department of Veterans Affairs facilities. Additional future care activities may be listed in the Assessment and Plan section. Date/Time Care Activity Care Activity Detail Facili ty 02/01/2025 AMBULATORY - MEDICINE AMBULATORY - MEDICI [facility] 02/08/2025 AMBULATORY - SURGERY AMBULATORY - SURGERY [facility]
--- OUTSIDE RECORDS SUMMARY | 2024-08-23 11:01 | XMS_ITS ---
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 Name Role Phone DYLAN ARROYO Primary [...] PART B Aug 11, 2014 PART B [id number] INGRID CASILLASBRIGID PATIENT MEDICARE (WNR) MEDICARE (M) PART B Aug 11, 2014 PART B [id number] INGRID BRIGID CASILLAS PATIENT MEDICARE (WNR) MEDICARE (M) PART A Dec 11, 2012 PART A [id number] INGRID BRIGID CASILLAS PATIENT MEDICARE (WNR) MEDICARE (M) PART B Dec 11, 2012 PART B [id number] INGRID CASILLASBRIGID PATIENT MEDICARE (WNR) MEDICARE (M) PART A Dec 11, 2012 PART A [id number] BRIGID QUINTERO JR PATIENT MEDICARE (WNR) MEDICARE (M) PART A Dec 11, 2012 PART A [id number] [phone] BRIGID QUINTERO JR PATIENT MEDICARE (WNR) MEDICARE (M) PART A Dec 11, 2012 PART A [id number] BRIGID QUINTERO JR PATIENT MEDICARE (WNR) MEDICARE (M) PART B Dec 11, 2012 PART B [id number] [id number] BRIGID QUINTERO JR PATIENT MEDICARE PART D (WNR) MEDICARE (M) PART D Jun 13, 2015 PART D [id number] [id number] BRIGID QUINTERO JR PATIENT MEDICARE PART D (WNR) MEDICARE (M) PART D Jun 13, 2015 PART D [id number] BRIGID QUINTERO JR PATIENT Selected Encounter This section includes the information on record at [place] for the Encounter. Date/Time Encounter Type Encounter Description Reason Provider Source Feb 10, 2024 01:30 PM OFFICE O/P EST MOD 30 MIN OPTOMETRY ICD-10-CM E11.9 Type 2 diabetes mellitus without complications DREW MONROY Encounter Template Text not used by [place] Assessments - Encounter Diagnoses This section includes the primary and secondary diagnoses documented for the Encounter. Date/Time Primary/Secondary Diagnosis Diagnosis Name Provider Source Feb 10, 2024 02:17 PM PRIMARY Type 2 diabetes mellitus without complications TOM AVERY [facility] Feb 10, 2024 02:17 PM SECONDARY Presbyopia TOM AVERY [facility] Feb 10, 2024 02:17 PM SECONDARY Presence of intraocular lens TOM AVERY [facility] Plan of Treatment: Future Appointments (+ 6 months) and Future Tests (+/- 45 days) The Plan of Treatment section includes future care activities for the patient from all [place] treatmentfacilities. This section includes future appointments and future orders which are active, pending or scheduled. Future Appointments This section includes appointments that were scheduled to occur 6 months from the date of the Encounter, up to a maximum of 20 appointments. The data comes from all [place] treatment facilities. Appointment Date/Time Appointment Type Appointme nt Facility Name May 28, 2024 12:47 PM AMBULATORY - MEDICINE [facility] Active, Pending, and Scheduled Orders This section includes a listing of several types of active, pending, and scheduled orders, including clinic medications orders, diagnostic test orders, procedure orders and consult orders; where the start date of the order is 45 days before the date of the Encounter or 45 days after the date of theEncounter. The data comes from all [place] treatment facilities. Test Date/Time Test Type Test Details Facility Name Feb 03, 2024 12:00 AM Laboratory - Chemi stry Order OCCULT BLOOD FIT X1 SCREEN STOOL FECES [facility] Feb 03, 2024 12:00 AM Laboratory - Chemi stry Order URINALYSIS (STL-PB) URINE [facility] Feb 03, 2024 12:00 AM Laboratory - Chemi stry Order MICRAL/CREAT PROFILE (L) URINE YELLOW [facility] Lab Results: +/- 30 days of the encounter This section includes the Chemistry and Hematology Lab Results on record with [place] for the patient. Radiology Reports and Pathology Reports are provided separately, in subsequent sections. Lab Results This section contains the Chemistry/Hematology Results that were resulted 30 days before or 30 daysafter the date of the Encounter. Date/Time Source Result Type Result - Unit Interpretation Reference Range Comment Feb 03, 2024 11:42 AM [facility] HGA1C Specimen Type: BLOOD No comment entered. Ordering Provider: TANGELA ARROYO EN Report Released Date/Time: Feb 03, 2024 11:27 AM Reporting Lab: [facility] [address] [facility] [id number] Performing Lab: [facility] [address] [facility] [address] HGA1C 7.1 H 4.0-6.0 Feb 03, 2024 11:42 AM [facility] VITAMIN D, 25-HYDROXY Specimen Type: SERUM No comment entered. Ordering Provider: TANGELA ARROYO EN Report Released Date/Time: Feb 03, 2024 11:27 AM Reporting Lab: [facility] [address] [facility] [id number] Performing Lab: [facility] [address] [place] [address] VITAMIN D, 25-HYDROXY 41.2 ng/mL 30-96 Feb 03, 2024 11:42 AM [facility] LIPID PANEL (STL) Specimen Type: PLASMA Comment: No hemolysis noted. Ordering Provider: TANGELA ARROYO Report Released Date/Time: Feb 03, 2024 11:27 AM Reporting Lab: [facility] [address] [place] [address] Performing Lab: [facility] [address] [place] [address] CHOLESTEROL 101 mg/dL 0-200 TRIGLYCERIDE 126 mg/dL 0-150 CALCULATED LDL 46 mg/dL See Interp HDL(New) 30 mg/dL L > 40 Feb 03, 2024 11:42 AM [facility] TSH (MA-PB) Specimen Type: SERUM No comment entered. Ordering Provider: TANGELA ARROYO Report Released Date/Time: Feb 03, 2024 11:27 AM Reporting Lab: [facility] [address] [place] [address] Performing Lab: [facility] [address] [place] [address] TSH 0.426 u[IU]/mL L 0.470-5.000 FREE T4(REFLEX) 1.02 ng/mL 0.70-1.48 Feb 03, 2024 11:42 AM [facility] COMPREHENSIVE METABOLIC PANEL Specimen Type: PLASMA Comment: No hemolysis noted. Ordering Provider: TANGELA ARROYO Report Released Date/Time: Feb 03, 2024 11:27 AM Reporting Lab: [facility] [address] [place] [address] Performing Lab: [facility] [address] [place] [address] CREATININE 1.22 mg/dL 0.70-1.30 UREA NITROGEN 16.8 [...] 61.44 >60 Feb 03, 2024 11:42 AM [facility] CBC Specimen Type: BLOOD No comment entered. Ordering Provider: TANGELA ARROYO EN Report Released Date/Time: Feb 03, 2024 11:27 AM Reporting Lab: [facility] [address] [facility] [address] Performing Lab: [facility] [address] [facility] [address] WBC 7.7 10*3/uL 3.6-11.2 RBC 4.25 10*6/uL [...] Encounter. Date/Time Encounter Note(s) Provider Source Feb 10, 2024 01:23 PM OPTOMETRY NOTE: LOCAL TITLE: OPTOMETRY NOTE STANDARD TITLE: OPTOMETRY NOTE DATE OF NOTE: FEB 10, 2024@13:23 ENTRY DATE: FEB 10, 2024@13:23:29 AUTHOR: TOM AVERYPERSIAN EXP COSIGNER: TABBY MONROY URGENCY: STATUS: COMPLETED OPTOMETRY NOTE Has ADDENDA ABIODUN: 01/12/2023 REASON FOR VISIT: CEE CC: 1. stable vision since ABIODUN per pt - denies flashes/floaters/curtain over vision - doing well with current specs 2. DMT2 - dx x 2015 - LA1C: 7.1 (02/03/2024) - LFBS: 142 (02/03/2024) - controlled with meds, followed by PCP/endo Ocular meds: Ocular ROS: 1. 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 PCIOL OU s/p YAG OU (OD 12/30/2022, OS 12/16/2022) 3. PVD OU 4. MGD/NGOZI OU 5. Refractive error FOHx: (-) blindness (-) glaucoma (-) AMD (-) RD Cardiovascular ROS: no change from problem & medication lists CPRS Problem list, medications and allergies reviewed: CPRS Serology for Diabetes GLUCOSE 142 H mg/dL 02/03/2024 11:42 HGA1C 7.1 H % 02/03/2024 11:42 Cardiovascular BP: 108/63 (02/03/2024 10:59) Pulse: 78 (02/03/2024 10:59) Neuro: Orientation: Normal Psych: Mood/Affect: Normal Depression/suicide ideation: NO * - VISUAL ACUITY - DVA WITH/WITHOUT correction OD: 20/30 PH 20/20 OS: 20/30 PH 20/20 Pupils: PERRL OU (-)APD Confrontation: FTFC OU Extra-Ocular Muscles: Full OU Externals/adnexa: Unremarkable OU LMRx: 01/12/2023 OD: +1.00-1.50 x105 20/20 OS: +0.75-1.50 x090 20/15- Add: +2.75 20/20 Refraction: 02/10/2024 OD: +1.75-1.39u742 20/20 OS: +1.25-1.51d389 20/20 Add: +3.00 - SLIT LAMP EXAMINATION - Lids/Lashes/Lacrimal: (-) blepharitis OU Conjunctiva/Sclera: white/quiet OU Cornea: OD: CE scar @ 7:00/11:00 OS: CE scar @ 5:00 c slight opacity Ant Chamber: deep and quiet OU Iris: normal, (-)NVI OU Lens: OD: PCIOL OS: PCIOL c tr PCO along SN edge Intraocular Pressures (Goldmann): 1 gtt Altafluor Date OD OS Time Meds 02/10/2024 10 11 1343 none - RETINAL EVALUATION - DFE Dilated retinal exam: 1343 Instilled 1 gtt phenylephrine 2.5%, 1 gtt tropicamide 1% OU Pt understands the side effects associated with dilation Vitreous: (+)PVD OU Optic Nerve OD: 0.20 CDR Flat, pink, distinct (-)NVD OS: 0.15 CDR Flat, pink, distinct (-)NVD Vessels: 2/3 OU, (-)NVE OU Posterior Pole: OD: (-) hemes/exudates/CWS/NVE OS: (-) hemes/exudates/CWS/NVE Macula: OD: Flat, clear (-)CSME OS: Flat, clear (-)CSME Periphery: OD: Flat and attached OS: Flat and attached Assessment/Plan 02/10/2024 1. DMT2 without retinopathy OU - dx x 2014 - LA1C: 7.1 (02/03/2024) - LFBS: 142 (02/03/2024) - controlled with meds, followed by PCP/endo - (-) CSME/DME on clinical exam today OU - Pt ed on importance of maintaining tight blood sugar control. Recommend A1C < 7% to minimize risks of retinopathy and visual changes. Pt verbalizes understanding. - RTC 12 mos for CEE/DFE. 2. PCIOL OU - well centered - s/p YAG OU (OD 12/30/2022, OS 12/16/2022) - (+)tr PCO along SN edge OS, not visually significant - BCVA cc 20/20 OD/OS/OU - Monitor for visual changes 3. PVD OU - asymptomatic for floaters (-) flashes/curtain over vision - (-)holes/breaks/detachmen ts 360 OU - Pt ed on signs/symptoms of RD (flashes/floaters/curtain over vision). RTC STAT for any sudden onset of symptoms. - Monitor with annual DFE 4. Presbyopia - subjective improvement in vision with updated rx - Order new specs. - Pt made aware of possible 1-2 wks adapatation period. Recommended building up wear time (+2hrs/day). Pt edu on all findings and given the opportunity to have questions answered RTC 12 mos for CEE or sooner JOANNA /quiana/ TOM AVERY Optometry Resident Signed: 02/10/2024 14:20 /quiana/ TABBY MONROY OD SHIRRING 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 Cosigned: 02/10/2024 14:32 02/10/2024 ADDENDUM STATUS: COMPLETED I have reviewed the history, findings and agree with the assessment and plan as charted in CPRS on this established patient. /quiana/ TABBY MONROY OD SHIRRING 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 Signed: 02/10/2024 14:32 TOM AVERY [facility]
== END 2024-08-23 09:36 | disposition home or self-care (01) ==
LOC: ANHLAB 09:40
PROVIDERS: PCP Family Medicine; Visit Provider Internal Medicine Cardiovascular Disease
DX: E78.5 Hyperlipidemia, unspecified (principal); I25.10 Atherosclerotic heart disease of native coronary artery without angina pectoris
CPT/HCPCS: 36415; 80053; 80061; 82550; 83735; 85025

== ENCOUNTER 2025-03-14 11:43 | Outpatient (CLI) | payer MEDICARE, OTHER, SELFPAY ==
--- OUTSIDE RECORDS SUMMARY | 2006-05-16 03:00 | XMS_ITS | Continuity of Care Document ---
Author Organization [facility] Address [address] [place] [address] [address] [place] [address] Phone Care Team Providers Care Flight Engineer Helicopter Name Role Phone Evelyne, Edbrittney Unavailable Unavailable Advance Directives Directive Yes / No Effective Date File Name No Information Encounters Encounter Description Practice Location Reason(s) For Visit Diagnoses Date Provider Providers Copied on Encounter [facility], [address], [place], [place], [id number], [place] tel:[phone] [facility] No Information Dec-0 4-200 6 Doisy Edward. [address] [facility] , [address], [place], [address], [place]. tel:[phone] Family History Family Member Type Diagnosis Age At Onset No Information Payers Payer name Insurance type Covered libertarian ID Authoriza tion(s) No Information Social History Type Description Quantity Date Captured Comments Sex Male Smoking Status No Information Chief Complaint And Reason For Visit No Information Reason For Referral Reason For Referral No Information History Of Present Illness Encounter Date Complaint History Of Prese nt Illness No Information Functional Status Date Functional Assessmen t No Information Instructions Date Instruction Additional Infor mation No Information Assessments Type Assessment Date No Information Patient Care Teams Name Effective Dates (start - stop) Status Members No Information
--- OUTSIDE RECORDS SUMMARY | 2025-03-14 12:03 | XMS_ITS | Clinical Summary ---
Author Organization [facility] Address [address] [place] [address] Care Team Providers Care Pick Pack Worker Name Role Phone Bhanu Gusman MD Primary Care Provider [phone] Source Comments [facility],non-owned Affiliates and Associated Physician Practices is amultiple site organization consisting of ambulatory clinics and hospital sitesin [place], [place], [place] and [place]. This disclosure is being madepursuant to the Care Everywhere program and may not contain all information available regarding this patient. Last updated 18.[facility] Allergies Active Allergy Reactions Criticality Noted Date Comments Amoxicillin Urticaria Medium 04/27/2024 Medications * Be aware that medications may not be up to date on this document. Alwaysverify current medications with the patient. atorvastatin (Lipitor) 20 MG tablet Take 1 (one) tablet by mouth at bedtime 4 Active clopidogrel (plaVIX) 75 MG tablet Take 1 (one) tablet by mouth once daily 4 Active cyanocobalamin (Vitamin B-12) 1000 MCG tablet Take 1 (one) tablet by mouth once daily Active DULoxetine (Cymbalta) 60 MG capsule Take 1 (one) capsule by mouth once daily 4 Active empagliflozin (Jardiance) 25 MG tablet Take 0.5 (one-half) tablet by mouth once daily 4 Active icosapent ethyl (Vascepa) 1 g capsule Take 2 (two) capsules by mouth 2 times daily with morning and evening meal 4 Active liraglutide (Victoza) 18 MG/3ML pen Inject 1.8 mg subcutaneously once daily 4 Active metFORMIN (Glucophage) 1000 MG tablet Take 1 (one) tablet by mouth 2 times daily with morning and evening meal 4 Active metoprolol succinate XL 24hr (Toprol XL) 200 MG tablet Take 1 (one) tablet by mouth once daily 4 Active omeprazole (PriLOSEC) 20 MG capsule Take 1 (one) capsule by mouth once daily 4 Active oxyBUTYnin CR 24hr (Ditropan-XL) 10 MG tablet Take 1 (one) tablet by mouth once daily 4 Active sacubitril-stefanie sartan (Entresto) 97-103 MG tablet Take 1 (one) tablet by mouth 2 times daily 4 Active spironolactone (Aldactone) 25 MG tablet Take 1 (one) tablet by mouth once daily 4 Active tamsulosin (Flomax) 0.4 MG capsule Take 1 (one) capsule by mouth once daily 4 Active aspirin (Aspirin) 81 MG chew tablet Take 1 (one) tablet by mouth once daily Active oxyCODONE, immediate release, (Roxicodone) 5 MG tabletIndicati ons:Trauma Take 1 (one) tablet by mouth every 6 hours as needed for Pain 12 tablet 4 Active docusate sodium (Colace) 100 MG capsule Take 1 (one) capsule by mouth once daily 8 capsule 4 Active EPINEPHrine (Epipen) 0.3 MG/0.3ML auto-injector pen Inject 0.3 mL into muscle once as needed for Anaphylaxis 0.6 mL 1 4 Active Active Problems Problem Noted Date Diagnosed Date Trauma 04/27/2024 Impaired mobility and ADLs 04/27/2024 Acute pain due to injury 04/27/2024 Fall 04/27/2024 Diverticulosis 04/27/2024 Pulmonary nodule, left 04/27/2024 Hepatic lesion 04/27/2024 Syncope and collapse 04/27/2024 Leukocytosis, unspecified type 04/27/2024 Fall, initial encounter 04/27/2024 Immunizations Immunization Administration Dates Next Due TDAP (7yrs+) 04/27/2024(Deferred: [...] and heating? Not hard at all 04/28/2024 [facility] [place] [facility] Occupat ional Health - Occupational Stress [...] any time in the past 12 m [facility], were you homeless or living in a prison (including now)? No 04/28/2024 Sex and Gender Information Value Date Recorded Sex Assigned at Not on file Legal Sex Male 11:59 AM ICU NURSE Gender Identity Not on file Sexual Orientation Not on file Last Filed Vital Signs Vital Sign Reading Time Taken Comments Blood Pressure 93/59 04/28/2024 12:45 PM ICU NURSE Pulse 88 04/28/2024 12:45 PM ICU NURSE Temperature 36.6 C (97.8 F) 04/28/2024 12:45 PM ICU NURSE Respiratory Rate 20 04/28/2024 12:45 PM ICU NURSE Oxygen Saturation 96% 04/28/2024 12:45 PM ICU NURSE Inhaled Oxygen Concentration - - Weight 100.2 kg (221 lb) 04/28/2024 2:09 PM ICU NURSE Height 170 cm (5' 6.93) 04/28/2024 2:09 PM ICU NURSE Body Mass Index 34.69 04/28/2024 2:09 PM ICU NURSE Plan of Treatment Health Maintenance Due Date Last Done Comments MEDICARE AWV 12 MONTHS 1950 HEPATITIS C SCREENING 01/06/1966 DTAP/TDAP/TD VACCINES (1 - Tdap) 01/10/1967 PNEUMOCOCCAL VACCINE 50+ (1 of 2 - PCV) 01/10/1967 ZOSTER VACCINE (1 of 2) 01/10/1998 Respiratory Syncytial Virus (RSV) Vaccine Pt: or over 60 yrs (1 - 1-dose 75+ series) 01/10/2023 DEPRESSION SCREENING 06/13/2024 COVID-19 VACCINE ( season) 2025 09/17/2021, 04/11/2021, 08/26/2020, Additional history exists INFLUENZA VACCINE (#1) 2025 , 2023, 04/13/2021, Additional history exists HEPATITIS B VACCINE [...] on patient's age to complete this topic Insurance MEDICARE [employer] [place] MEDICARE [employer]ICARE [employer] Advance Directives * Full Code (Latest Code Status on File) Date Activated Date Inactivated Comments 04/28/2024 3:37 AM 04/28/2024 5:51 PM Care Teams Pick Pack Worker Relationship Specialty Start Date End Date Bhanu Gusman MD [address] [place] [address] PCP - General 06/12/19
--- OUTSIDE RECORDS SUMMARY | 2025-03-14 12:03 | XMS_ITS | Clinical Summary ---
Author Organization [facility] Address [address] [place] [address] Care Team Providers Care Hot Dog Vendor Name Role Phone Bhanu Gusman MD Primary Care Provider [phone] Tripp Hernandez NP Unavailable [phone] Allergies Active Allergy Reactions Criticality Noted Date Comments Amoxicillin Hives Medium Reaction: HIVES, Cefazolin Rash,Redness Medium 02/15/2025 Perflutren Lipid Microspheres Anaphylaxis High 07/04/2019 Lisinopril Cough Low 11/28/2019 Perflutren Other (See comments) High Reaction: OTHER REACTION, Vancomycin Rash,Redness Medium 02/15/[address] (CYMBALTA) 60 mg capsule Take 1 capsule (60 mg total) by mouth daily Active omega 4-yxv-qud-fish oil 1,000 mg (120 mg-180 mg) capsule Active metFORMIN (GLUCOPHAGE) 1,000 mg tablet Take 1 tablet (1,000 mg total) by mouth daily with breakfast Active omeprazole (PriLOSEC) 20 mg capsule Take 1 capsule (20 mg total) by mouth daily Active oxybutynin XL (DITROPAN-XL) 10 mg 24 hr tablet Take 1 tablet (10 mg total) by mouth nightly Active tamsulosin (FLOMAX) 0.4 mg extended release capsule Take 1 capsule (0.4 mg total) by mouth every evening Active atorvastatin (LIPITOR) 40 mg tablet Take 1 tablet (40 mg total) by mouth daily Active multivit-forms examiner aq-xdux-ijpfgz tablet Take by mouth Active cyanocobalamin (Vitamin B-12) 1,000 mcg tabletIndicati ons:Prevention of Vitamin B12 Deficiency Take 1 tablet (1,000 mcg total) by mouth daily Active metoprolol XL (TOPROL-XL) 200 mg extended release tablet Take 1 tablet (200 mg total) by mouth daily Active liraglutide (VICTOZA) 0.6 mg/0.1 mL (18 mg/3 mL) injection Inject 1.8 mg under the skin daily 02/25/20 Active clopidogreL (PLAVIX) 75 mg tablet Take 1 tablet (75 mg total) by mouth every evening 02/25/20 Active empagliflozin (JARDIANCE) 25 mg tablet Take 1 tablet (25 mg total) by mouth nightly 02/25/20 Active magnesium oxide 400 mg magnesium capsule Take 400 mg by mouth every evening 02/25/20 Active spironolactone (ALDACTONE) 25 mg oral suspension Take 10 mL (25 mg total) by mouth daily 02/25/20 Active sacubitriL-stefanie sartan (ENTRESTO) 49-51 mg tablet Take 1 tablet by mouth 2 (two) times a day 02/25/20 Active ascorbic acid (VITAMIN C) 500 mg tablet,chewabl e Take 1 tablet/chew tab (500 mg total) by mouth 2 (two) times a day 60 tablet/chew tab 02/16/20 Active cholecalcifero l (VITAMIN D-3) 2000 unit capsule Take 1 capsule (2,000 Units total) by mouth daily 30 capsule 02/16/20 Active ferrous sulfate 325 mg (65 mg of elemental iron) tabletIndicati ons:Iron Deficiency Anemia Take 1 tablet (325 mg total) by mouth daily with breakfast 30 tablet 02/16/20 Active HYDROcodone-ac etaminophen (NORCO) 5-325 mg per tabletIndicati ons:Pain Take 1-2 tablets by mouth every 4 (four) hours as needed for pain 60 tablet 02/16/20 Active ondansetron (ZOFRAN) 4 mg tabletIndicati ons:Prevention of Post-Operative Nausea and Vomiting Take 1 tablet (4 mg total) by mouth every 6 (six) hours as needed for nausea or vomiting 30 tablet 1 02/16/20 25 Active senna-docusate (PERICOLACE) 8.6-50 mg 1-2 times daily as needed for constipation 60 tablet 1 02/16/20 25 Active aspirin (Aspirin Childrens) 81 mg chewable tablet Take 1 tablet (81 mg total) by mouth 2 (two) times a day For 30 days then resume once daily dosing 60 tablet 02/16/20 25 025 Active aspirin (Aspirin Childrens) 81 mg chewable tablet Take 1 tablet (81 mg total) by mouth daily 07/24/19 20 025 Discontinued aspirin (Aspirin Childrens) 81 mg chewable tablet Take 1 tablet (81 mg total) by mouth 2 (two) times a day Then resume once daily dosing 60 tablet 02/16/20 25 025 Discontinued Active Problems Problem Noted Date Diagnosed Date Vancomycin adverse reaction 02/15/2025 Status post total left knee replacement 02/15/20 Cardiomyopathy 02/05/2025 Chronic clinical systolic heart failure 02/06/20 25 Intraepithelial carcinoma 02/05/2025 Obstructive sleep apnea syndrome 02/05/2025 Unstable angina pectoris 02/05/2025 Stented coronary artery 02/05/2025 Restless leg syndrome 02/05/2025 Primary osteoarthritis of left knee 01/17/2025 Diverticulosis 04/27/2024 Hepatic lesion 04/27/2024 Memory loss 07/04/2019 Hyperlipidemia 02/08/2019 Essential (primary) hypertension 02/08/2019 Type 2 diabetes mellitus 02/08/2019 Presence of aortocoronary bypass graft 9 Sleep apnea, unspecified 02/08/2019 Atherosclerosis of coronary artery 11/09/2012 Encounters Date Type Department Care Team Description 02/26/2025 8:00 AM CDT Telemedicine [facility] Orthopedics and Sports Medicine [address] [place] [address] [address] [place] [address] Tripp Hernandez NP Status post total left knee replacement (Primary Dx) 02/26/2025 Telephone [facility] Orthopedics and Sports Medicine [address] [place] [address] [address] [place] [address] Tripp Hernandez NP 02/15/2025 Orders Only [facility] Orthopedics and Sports Medicine [address] [place] [address] Eugenio Beaulieu PA History of total left knee replacement (Primary Dx) 02/15/2025 Telephone [facility] Orthopedics and Sports Medicine [address] [place] [address] [address] [place] [address] Eugenio Beaulieu PA 02/14/2025 10:00 AM CDT - 02/14/2025 12:30 PM CDT Surgery [facility] Operating Room [address] [place] [address] Froilan Wise MD Left total knee arthroplasty with robotic assistance 02/14/2025 9:57 AM CDT Anesthesia Event [facility] Operating Room [address] [place] [address] Salvador Baez DO Reynolds, Ethan Emerson, MD 02/14/2025 8:03 AM CDT - 02/15/2025 12:14 PM CDT Hospital Encounter [facility] Surgery Care [address] [place] [address] Froilan Wise MD Sinha, Chandni, MD Primary osteoarthritis of left knee Discharge Disposition: Discharge to home or self care 02/05/2025 9:45 AM CDT Lab [address] [address] Primary osteoarthritis of left knee; Encounter for screening for diabetes mellitus 02/05/2025 9:10 AM CDT - 02/05/2025 11:59 PM CDT Hospital Encounter [facility] Imaging Center [address] [place] [address] Primary osteoarthritis of left knee Discharge Disposition: Discharge to home or self care 02/05/2025 9:09 AM CDT - 02/05/2025 11:59 PM CDT Hospital Encounter [facility] Cardiology [address] [place] [address] Primary osteoarthritis of left knee Discharge Disposition: Discharge to home or self care 01/18/2025 Orders Only [facility] Medical [facility] Orthopedics and Sports Medicine [address] [place] [address] [address] [place] [address] Froilan Wise MD Primary osteoarthritis of left knee (Primary Dx) 01/14/2025 Telephone [facility] Medical Group Orthopedics and Sports Medicine [address] [facility] [address] [place] [address] Kailey Anderson MA from Last 3 Months Surgical History Surgery Date Site/Laterality Comments CORONARY ARTERY BYPASS GRAFT 06/13/2014 - 06/12/2015 2 vessel CHOLECYSTECTOMY CORONARY ANGIOPLASTY WITH ST ENT PLACEMENT 1 cardiac stent ANKLE FRACTURE SURGERY Right Medical History Medical History Date Comments Diabetes mellitus Hypertension Stroke (HCC) Heart attack (HCC) Hyperlipemia CAD (coronary artery disease) Heart failure Family History Medical History Relation Name Comments Hypertension Father Hypertension Sister Relation Name Status Comments Father Sister Social History Tobacco Use Types Packs/Day Years Used Date Smoking Tobacco: Never Smokeless Tobacco: Never Alcohol Use Standard Drinks/Week Comments Never 0 (1 standard drink = 0.6 oz pur e alcohol) PHQ-2 Answer Date Recorded PHQ-2 Total Score (If total score is 3 or more points, staff should administer the PHQ-9) 0 02/14/2025 AUDIT-C Answer Date Recorded Q1: How often do you have a drink containing alcohol? Never 02/05/2025 Q2: How many drinks containi ng alcohol do you have on a typical day when you are drinking? Patient does not drink Q3: How often do you have si x or more drinks on one occasion? Never 02/05/2025 Personal Safety Answer Date Recorded Have you ever been in or are you currently in a harmful physical or emotional relationship or is someone making you feel afraid or unsafe? 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 Gender Identity Not on file Sexual Orientation Not on file Obstetrics History Last Filed Vital Signs Vital Sign Reading Time Taken Comments Blood Pressure 124/68 02/15/2025 11:30 AM CDT Pulse 96 02/15/2025 11:30 AM CDT Temperature 36.9 C (98.5 F) 02/15/2025 11:30 AM CDT Respiratory Rate 16 02/15/2025 11:3 0 AM CDT Oxygen Saturation 99% 02/15/2025 11: 30 AM CDT Inhaled Oxygen Concentration - - Weight 100.7 kg (222 lb 0.1 oz) 02/14/2025 8:05 AM CDT Height 170.2 cm (5' 7) 02/14/2025 8:05 AM CDT Body Mass Index 34.77 02/14/2025 8:05 AM CDT Plan of Treatment Health Maintenance Due Date Last Done Comments Albumin Creatinine Ratio, Urine 1950 Hepatitis C Screening 1950 Dilated Eye Exam 1950 Foot Exam 1950 Hepatitis B Screening 01/10/1966 Well Visit 65+ 01/10/2013 Lipid Panel 11/13/2013 11/13/2012, 09/19/2012 Pneumococcal vaccine 65+ (2 of 2 - PPSV23, PCV20, or PCV21) 11/21/2015 09/26/2015 Zoster Vaccine (3 of 3) 10/10/2018 08/15/2018, 09/13 Influenza Vaccine (#1) 2025 Hemoglobin A1C 08/08/2025 02/05/2025, 04/28/2024 DTaP/Tdap/Td Vaccine (2 - Td or Tdap) 09/25/2025 Depression Screening 01/17/2026 01/17/2025 eGFR 02/05/2026 02/05/2025 Fall Risk Assessment 02/15/2026 02/15/2025 Goals Goal Patient Goal Type Associated Problems Recent Progress Patient-Stated? Author Autogenerat ed Goal Care Plan Autogenerated Problem No Melissa Valentine Medical Devices Implanted Type Area Ultrasonic Tester Device Identifier Shelf Expiration Date Model / Serial / Lot [employer] Attune Cruciate Retain Cementless Knee Left 6 Narrow Component [id number] - [id number] Implanted:Qty: 1 on 02/14/2025 by Froilan Wise MD at [facility] Left: Knee [employer] [id number] 12/10/2034 [id number] / / [id number] [employer] Insert Tibial Knee Fixed Lm Posterior Stabilized Attune 5mm Size 6 Polyethylene [id number] - [id number] Implanted:Qty: 1 on 02/14/2025 by Froilan Wise MD at [facility] Left: Knee [employer] [id number] 11/10/2032 [id number] / / [id number] [employer] Tibial Baseplate Knee Porous Fixed Attune Affixium Size 5 Titanium [id number] - [id number] Implanted:Qty: 1 on 02/14/2025 by Froilan Wise MD at [facility] Left: Knee [employer] [id number] 01/10/2033 [id number] / / [id number] Procedures Procedure Name Priority Date/Time Associated Diagnosis Comments POCT GLUCOSE DEVICE Routine 02/15/2025 12:28 AM CDT TRYPTASE Routine 02/14/2025 9:05 PM CDT POCT GLUCOSE DEVICE Routine 02/14/2025 7 :24 PM CDT POCT GLUCOSE DEVICE Routine 02/14/2025 7 :24 PM CDT POCT GLUCOSE DEVICE Routine 02/14/2025 4 :25 PM CDT SURGICAL PATHOLOGY Routine 02/14/2025 1: 40 PM CDT Primary osteoarthritis of left knee XR KNEE LEFT 1 OR 2 VIEWS IP Routine 02/14/2025 12:46 PM CDT POCT GLUCOSE DEVICE Routine 02/14/2025 12:38 PM CDT HI AN ELECTIVE SUPRAGLOTTIC AIRWAY Routine 02/14/2025 11:12 AM CDT ANESTHESIA SPINAL BLOCK Routine 02/14/2025 10:28 AM CDT ARTHROPLASTY TOTAL KNEE 02/14/2025 9:32 AM CDT Primary osteoarthritis of left knee Special Needs Depuy Attune , Velys, NMES, CPM, cooling unit, 1 liter beta rinse, aquamantys (overnight) PROTIME-INR STAT 02/14/2025 8:33 AM CDT APTT STAT 02/14/2025 8:33 AM CDT POTASSIUM, WHOLE BLOOD STAT 02/14/2025 8:33 AM CDT POCT GLUCOSE DEVICE Routine 02/14/2025 8 :23 AM CDT URINALYSIS, MICROSCOPIC ONLY Routine 02/05/2025 10:50 AM CDT Primary osteoarthritis of left knee URINALYSIS AND REFLEX TO MICROSCOPIC AND CULTURE Routine 02/05/2025 10:50 AM CDT Primary osteoarthritis of left knee ECG 12-LEAD Routine 02/05/2025 9:31 AM CDT Primary osteoarthritis of left knee XR CHEST PA LATERAL 2 VIEWS Schedule Routine, Read Routine (OP Routine) 02/05/2025 9:26 AM CDT Primary osteoarthritis of left knee EGFR Routine 02/05/2025 9:17 AM CDT Primary osteoarthritis of left knee DIFFERENTIAL AUTO Routine 02/05/2025 9:1 7 AM CDT Primary osteoarthritis of left knee CBC WITH AUTO DIFFERENTIAL Routine 02/05/2025 9:17 AM CDT Primary osteoarthritis of left knee COMPREHENSIVE METABOLIC PANEL Routine 02/05/2025 9:17 AM CDT Primary osteoarthritis of left knee HEMOGLOBIN A1C Routine 02/05/2025 9:17 AM CDT Primary osteoarthritis of left knee Encounter for screening for diabetes mellitus PROTIME-INR Routine 02/05/2025 9:17 AM CDT Primary osteoarthritis of left knee APTT Routine 02/05/2025 9:17 AM CDT Primary osteoarthritis of left knee PLASMA LIPID PANEL Routine 11/13/2012 9: 14 AM CDT from Last 3 Months or Most Recently Relevant to Health Maintenance Results * (ABNORMAL) POCT glucose (02/15/2025 12:28 AM CDT) Glucose, POC 220(H) 70 - 199 mg/dL Blood 02/15/2025 12:2 8 AM CDT 02/15/2025 12:28 AM CDT Froilan Wise MD LAB POCT ORDERABLES - DEVICE Final Result Performing Organization Address City/[facility]/ZIP Co de Phone Number JJ [facility] ([place]) [address] [facility] [employer] [place] [address] * (ABNORMAL) Tryptase (02/14/2025 9:05 PM CDT) Tryptase Level 57.7(H) <11.5 ng/mL [facility] ref Lab Comment: Test Performed by: [facility] [address] [place] [address] Chemical Treatment Operator: Samm Couch Ph.D.; CLIA# [id number] Blood 02/14/2025 9:0 5 PM CDT 02/14/2025 9:08 PM CDT us Evaristo Iglesias MD LAB BLOOD ORDERABLES Final R esult Performing Organization Address [facility] Co de Phone Number [facility] ([place]) [address] [facility] [employer] [place] [address] [facility] * (ABNORMAL) POCT glucose (02/14/2025 7:24 PM CDT) Glucose, POC 316(H) 70 - 199 mg/dL Blood 02/14/2025 7:24 PM CDT 02/14/2025 7:24 PM CDT Froilan Wise MD LAB POCT ORDERABLES - DEVICE Final Result [facility] ([place]) 1 [facility] [employer] [place] [address] * (ABNORMAL) POCT glucose (02/14/2025 7:24 PM CDT) Glucose, POC 324(H) 70 - 199 mg/dL Blood 02/14/2025 7:24 PM CDT 02/14/2025 7:24 PM CDT Froilan Wise MD LAB POCT ORDERABLES - DEVICE Final Result [facility] ([place]) [address] [place] [address] * (ABNORMAL) POCT glucose (02/14/2025 4:25 PM CDT) Glucose, POC 245(H) 70 - 199 mg/dL Blood 02/14/2025 4:25 PM CDT 02/14/2025 4:25 PM CDT Froilan Wise MD LAB POCT ORDERABLES - DEVICE Final Result Performing Organization Address City/[facility]/ZIP Co de Phone Number [facility] ([place]) [address] [place] [address] [place] [address] * Surgical pathology (02/14/2025 1:40 PM CDT) Tissue (Bone Fragment(s),) 02/14/2025 11:18 AM CDT Narrative [facility] - 02/18/2025 4:01 PM CDT EPIC results best viewed via link to PDF [facility] Department of Pathology [address] [place] [id number] Note to Patients: This report may contain a detailed description of human tissue sent by a health care provider to the laboratory for pathologic evaluation. The content of this report is essential for diagnosis and may provide important critical findings. This information may be unfamiliar to patients to review without a medical professional present. It is advised that the patient review this report in the presence of a health care provider who can answer questions and explain the details. Final Report Patient Name: BRIGID QUINTERO JR. Address: [address] [facility], [place] [address] Gender: M : 1950 (Age: 75) Service: Surgery Location: [facility] Hospital #: [id number] Patient Type: [facility] OP in bed Taken: 02/14/2025 Received: 02/14/2025 Accessioned: 02/14/2025 Reported: 02/18/2025 Physician(s):Dr. Froilan Wise M.D. Diagnosis: Bone and soft tissue, robotic-assisted left total knee arthroplasty: - Histologic changes consistent with degenerative joint disease. Rodney Abbott MD Report Electronically Reviewed and Signed Out By Rodney Abbott MD 02/18/2025 16:01:52 Specimen(s) Received: A: left knee bone and tissue fragments Microscopic Description: A decalcified section shows erosion and destruction of the articular cartilage. The marrow space appears fatty without significant hematopoietic marrow elements. Also seen are benign-appearing fragments of soft tissue, partially lined by minimally hyperplastic synovium. There is no evidence of malignancy. The histologic changes are consistent with the clinical impression of degenerative joint disease. Clinical History: Primary osteoarthritis of left knee [M17.12] Left total knee arthroplasty with robotic assistance Gross Description: The container is labeled BRIGID QUINTERO and left knee. It is a 7 x 5 x 3 cm in aggregate of irregularly-shaped fragments of bone and an approximate 10 cc aggregate of soft tissue consisting of adipose tissue, portions of menisci and some synovium. Recognizable pieces of bone include the tibial plateau and portions of femoral condyles. Some of the bone fragments are covered by articular cartilage showing varying degrees of degenerative changes that include pitting and roughened granularity. Decalcified and represented in two cassettes. Neema Goins R.N., P.A./Fritz Hopson M.D. REPORT IMAGES AND SCANNED DOCUMENTS, IF INCLUDED, ONLY VIEWABLE IN PDF VERSION OF REPORT The performance characteristics of some immunohistochemical stains, fluorescence in-situ hybridization tests and immunophenotyping by flow cytometry cited in this report (if any) were determined by the Surgical Pathology Department at [facility] as part of an ongoing quality assurance test program manager program and in compliance with federally mandated regulations drawn from the Clinical Laboratory Improvement Act of 1988 (CLIA '88). Some of these tests rely on the use of analyte specific reagents and are subject to specific labeling requirements by the US Food and Drug Administration. Such diagnostic tests may only be performed in a facility that is certified by the Department of Health and Human Services as a high complexity laboratory under CLIA '88. The FDA has determined that such clearance or approval is not necessary. This test is used for clinical purposes. It should not be regarded as investigational or for research. Nevertheless, federal rules concerning the medical use of analyte specific reagents require that the following disclaimer be attached to the report: This test was developed and its performance characteristics determined by the Surgical Pathology Department [facility]. It has not been cleared or approved by the U. S. Food and Drug Administration. Note for decalcified specimens: This assay has not been validated on decalcified tissues. Results should be interpreted with caution given the possibility of false negativity on decalcified specimens Froilan Wise MD LAB PATHOLOGY ORDERABLES [facility] al Result Performing Organization Address City/State/[facility] Co de Phone Number PATHOLOGY [address] [address] * XR Knee Left 1 or 2 View (02/14/2025 12:46 PM CDT) Anatomical Region Laterality Modality Lower Extremities, Knee Left Computed Radiography 02/14/2025 2:14 PM CDT Narrative 02/14/2025 2:19 PM CDT EXAM DESCRIPTION: XR KNEE LEFT 1 OR 2 VIEWS REASON FOR STUDY: post op Post op TECHNIQUE: 2 radiographic view(s) of the left knee . COMPARISON: 10/03/2024 FINDINGS: Left knee arthroplasty in near anatomic alignment. There is postsurgical soft tissue gas and swelling. IMPRESSION: Left knee arthroplasty in near anatomic alignment. THIS IS AN ELECTRONICALLY VERIFIED FINAL REPORT 02/14/2025 2:19 PM - Electronically signed by Bhanu Raya M.D. KR: GABO Report ID: [id number] Reading Location: [id number] Procedure Note Bhanu Raya MD - 02/14/2025 EXAM DESCRIPTION: XR KNEE LEFT 1 OR 2 VIEWS REASON FOR STUDY: post op Post op TECHNIQUE: 2 radiographic view(s) of the left knee . COMPARISON: 10/03/2024 FINDINGS: Left knee arthroplasty in near anatomic alignment. There is postsurgicalsoft tissue gas and swelling. IMPRESSION: Left knee arthroplasty in near anatomic alignment. THIS IS AN ELECTRONICALLY VERIFIED FINAL REPORT 02/14/2025 2:19 PM - Electronically signed by Bhanu Raya M.D. KR: GABO Report ID: [id number] Reading Location: [id number] Tripp Hernandez SINGLE NEEDLE OPERATOR IMG XR PROCEDURES Final Result * POCT glucose (02/14/2025 12:38 PM CDT) Glucose, POC 175 70 - 199 mg/dL Blood 02/14/2025 12:3 8 PM CDT 02/14/2025 12:38 PM CDT Froilan Wise MD LAB POCT ORDERABLES - DEVICE Final Result [facility] [place]) [address] [facility] Department [place] [address] * HI AN ELECTIVE SUPRAGLOTTIC AIRWAY (02/14/2025 11:12 AM CDT) Narrative Van Yap CRNA - 02/14/2025 11:12 AM CDT Van Yap CRNA 02/14/2025 11:12 AM Airway Patient location: OR Urgency: elective Indications for airway management: anesthesia Difficult airway: no Staff: Placed by: PCTS: Van Yap CRNA Emergent airway documentation: Risks and benefits discussed: yes Consent obtained: yes Consent given by: patient Airway prep: Preoxygenated: yes Patient position: sniffing MILS maintained throughout: yes Mask difficulty assessment: 0 - not attempted Sedation level during airway: GA Final airway details: Final airway type: supraglottic airway Final supraglottic airway: unique SGA size: 3 Number of attempts: 1 Salvador Baez DO ANESTHESIA ORDERABL ES Final Result * Spinal Block (02/14/2025 10:28 AM CDT) Narrative Emma Zhou CRNA - 02/14/2025 10:28 AM CDT Emma Zhou CRNA 02/14/2025 10:30 AM Spinal Block Patient location: OR End time: 02/14/2025 10:14 AM Reason for block: primary anesthetic Staff: Placed by: Anesthesiologist: Salvador Baez DO Procedure prep: Preprocedure checklist: patient identified, procedure contraindications assessed, site marked, procedure consent, surgical consent, IV checked, risks, benefits and alternatives discussed, monitors and equipment checked and timeout performed Patient position: sitting Procedure performed while patient: awake Monitoring: oximetry and blood pressure Prep solution: chlorhexadine/alcohol PPE: provider hat/mask, sterile gloves and sterile drape Skin infiltrated with lidocaine 1%: yes Spinal: Approach: midline Introducer used: no Location: L2-3 Spinal injection: CSF demonstrated, no aspiration of heme and no paresthesias noted Number of attempts: 3 Spinal Needle: Needle type: Merrill Needle gauge: 22 G Needle length: 9 cm Assessment: Sensory deficit - left: full eval pending Sensory deficit - right: full eval pending Events: patient tolerated procedure well with no complications Additional comments: Attempt x 2 by Wiley Zhou CRNA. Attempt x 1 by MD Nestor Salvador Baez DO ANESTHESIA ORDERABL ES Final Result * Potassium, whole blood (02/14/2025 8:33 AM CDT) Potassium, bld 3.9 3.3 - 4.9 mmol/L Comment: Interpretive Data This method is not able to assess for hemolysis, which may falsely increase potassium concentrations. If further testing is needed to evaluate this result, consider in-laboratory plasma potassium. Current Interpretive Data was last revised on 2022. Blood 02/14/2025 8:33 AM CDT 02/14/2025 8:35 AM CDT Miki Kaur MD LAB BLOOD ORDERABLES F inal Result Performing Organization Address City/[facility]/ZIP Co de Phone Number JJ [facility] ([place]) [address] [facility] [place] [address] * aPTT (02/14/2025 8:33 AM CDT) aPTT 29 26 - 38 sec [facility] Comment: Interpretive Data Heparin therapeutic range: 66.0 - 100.0 seconds. Range based on correlation with therapeutic heparin activity range of 0.3 - 0.7 Units/mL. Current interpretive data was last revised on 2023. Blood 02/14/2025 8:33 AM CDT 02/14/2025 8:35 AM CDT us Froilan Wise MD LAB BLOOD ORDERABLES Final R esult Performing Organization Address [facility] Co de Phone Number JJ MCCARTHY ([place]) 1 [facility] [place] [address] * Protime-INR (02/14/2025 8:33 AM CDT) PT 10.3 10.2 - 13.5 sec [facility] INR 0.91 0.90 - 1.20 [facility] Comment: Interpretive data Oral anticoagulant therapeutic ranges: Venous thromboembolism prophylaxis or treatment: 2.0-3.0 CARDIOLOGY Standard range: 2.0-3.0 High-intensity range: 2.5-3.5 Refer to indication-specific guidelines for appropriate target ranges for prosthetic heart valve replacement. Current interpretive data was last revised on 2019. Blood 02/14/2025 8:33 AM CDT 02/14/2025 8:35 AM CDT Froilan Wise MD LAB BLOOD ORDERABLES Final R esult Performing Organization Address City/[facility]/ZIP Co de Phone Number JJ MCCARTHY ([place]) 1 [facility] [place] [address] * POCT glucose (02/14/2025 8:23 AM CDT) Glucose, POC 149 70 - 199 mg/dL Blood 02/14/2025 8:23 AM CDT 02/14/2025 8:23 AM CDT us Froilan Wise MD LAB POCT ORDERABLES - DEVICE Final Result [facility] ([place]) 1 [facility] Department [place] [address] * (ABNORMAL) Urinalysis reflex to microscopic and culture Urine, clean voided (02/05/2025 10:50 AM CDT) Color, ur Yellow Yellow Clarity, ur Clear Clear [facility] ([place]) Specific gravity, ur 1.024 1.003 - 1.030 [facility] ([place]) pH, urine 5.5 [facility] ([place]) Comment: Interpretive Data U rine pH is affected by diet, medications, systemic acid-base disturbances, and renal tubular function. pH may affect urinary stone formation. For example, urine pH below 6.0 may help reduce the tendency for calcium phosphate stones and pH greater than 6.0 may reduce the tendency for uric acid stone formation. Source: [facility] Current Interpretive Data was last revised on 2017 Protein, ur ql Negative Negative [facility] ([place]) Glucose, ur ql 4+(A) Negative [facility] ([place]) Ketones, ur Negative Negative [facility] ([place]) Bilirubin, ur Negative Negative [facility] ([place]) Blood, ur Trace(A) Negative [facility] ([place]) Urobilinogen, ur <2.0 <2.0 mg/dL [facility] ([place]) Nitrite, ur Negative Negative [facility] ([place]) Leukocyte esterase, ur 1+(A) Negative [facility] ([place]) UA reflex comment Reflex to microscopic UA will be performed. [facility] ([place]) Urine, clean voided 02/05/2025 10:50 AM CDT 02/05/2025 11:12 AM CDT Froilan Wise MD LAB MICROBIOLOGY - GENERAL O RDERABLES Final Result Performing Organization Address [facility] Co de Phone Number JJ MCCARTHY ([place]) 1 [facility] [place] [address] * (ABNORMAL) Urinalysis, microscopic only (02/05/2025 10:50 AM CDT) WBC, ur 6-10(A) 0 - 5 /HPF RBC, ur 0-2 0 - 2 /HPF [facility] ([place]) Epithelial cells, squamous, ur 1-5 0 - 5 /HPF [facility] ([place]) Bacteria, ur Trace(A) [facility] ([place]) Mucous, ur Present(A) [facility] ([place]) Culture Reflex Comment Reflex conditions for urine culture (WBC >10) not met. [facility] ([place]) Urine, clean voided 02/05/2025 10:50 AM CDT 02/05/2025 11:12 AM CDT Froilan Wise MD LAB URINE ORDERABLES Final R esult Performing Organization Address [facility] Co de Phone Number JJ MCCARTH[facility] ([place]) 1 [place] [address] * ECG 12 lead (02/05/2025 9:31 AM CDT) 02/05/2025 9:29 AM CDT Narrative [facility] - 02/05/2025 4:09 PM CDT Vent Rate: 62 bpm RR Interval: 965 msec HI Interval: 205 msec QRS Duration: 101 msec QT Interval: 403 msec QTC Interval: 408 msec P-R-T [place]: 17 - -37 - -66 degrees IMPRESSION: SINUS RHYTHM LEFT AXIS DEVIATION [QRS AXIS < -30] PATTERN CONSISTENT WITH PULMONARY DISEASE NONSPECIFIC T-WAVE ABNORMALITY ABNORMAL ECG Electronically Signed By: Arthur Rasmussen MD us Froilan Wise MD ECG ORDERABLES Final Result [facility] * XR Chest Pa Lateral 2 Views (02/05/2025 9:26 AM CDT) Anatomical Region Laterality Modality Body, Chest N/A Computed Radiogr aphy 02/07/2025 1:49 PM CDT Narrative 02/07/2025 1:50 PM CDT EXAM DESCRIPTION: XR CHEST PA LATERAL 2 VIEWS REASON FOR STUDY: Preoperative evaluation in advance of left knee replacement 02/14/2025. No provided chest complaints. History of sleep apnea, diabetes, and unspecified stents. TECHNIQUE: Frontal and lateral radiographic views acquired of the chest. COMPARISON: Chest radiograph 09/26/2012. FINDINGS: LUNGS: No focal consolidation. No pleural effusion. No pneumothorax. HEART/MEDIASTINUM: Changes of CABG. Calcific atherosclerosis of the aortic arch. Tortuosity of the descending thoracic aorta. Hilar structures unremarkable. LINES/TUBES: Abdominal surgical clips. BONES: Diffuse osteopenia. No acute osseous abnormality. Degenerative osteoarthropathy of the shoulders. Spondylosis and degenerative disc disease of the visualized spine. ACDF hardware lower cervical spine. IMPRESSION: No radiographic evidence of acute cardiopulmonary process. THIS IS AN ELECTRONICALLY VERIFIED FINAL REPORT 02/07/2025 1:50 PM - Electronically signed by Kenn Chandler M.D. HEBER: HEBER Report ID: [id number] Reading Location: [id number] Procedure Note Kenn Chandler MD - 02/07/2025 EXAM DESCRIPTION: XR CHEST PA LATERAL 2 VIEWS REASON FOR STUDY: Preoperative evaluation in advance of left kneereplacement 02/14/2025. No provided chest complaints. History of sleep apnea,diabetes, and unspecified stents. TECHNIQUE: Frontal and lateral radiographic views acquired of the chest. COMPARISON: Chest radiograph 09/26/2012. FINDINGS: LUNGS: No focal consolidation. No pleural effusion. No pneumothorax. HEART/MEDIASTINUM: Changes of CABG. Calcific atherosclerosis of theaortic arch. Tortuosity of the descending thoracic aorta. Hilar structures unremarkable. LINES/TUBES: Abdominal surgical clips. BONES: Diffuse osteopenia. No acute osseous abnormality. Degenerative osteoarthropathy of the shoulders. Spondylosis and degenerative discdisease of the visualized spine. ACDF hardware lower cervical spine. IMPRESSION: No radiographic evidence of acute cardiopulmonary process. THIS IS AN ELECTRONICALLY VERIFIED FINAL REPORT 02/07/2025 1:50 PM - Electronically signed by Kenn Chandler M.D. HEBER: HEBER Report ID: [id number] Reading Location: [place] [address] us Froilan Wise MD IMG XR PROCEDURES Final Resu lt * eGFR (02/05/2025 9:17 AM CDT) eGFR 71 >=60 mL/min/1. 73 m2 Comment: Interpretive Data Reference Interval Normal >/= 90 mL/min/1.73m2 Mildly decreased* 60 - 89 mL/min/1.73m2 Mildly to moderately decreased 45 - 59 mL/min/1.73m2 Moderately to severely decreased 30 - 44 mL/min/1.73m2 Severely decreased 15 - 29 mL/min/1.73m2 Kidney Failure < 15 mL/min/1.73m2 *Relative to young adult level Estimated glomerular filtration rate is determined by the 2020 CKD-EPI equation recommended by the National Kidney Foundation (A Unifying Approach to GFR Estimation: Recommendations of the NKF-ASK Task Force on Reassessing the Inclusion of Race in Diagnosing Kidney Disease, JASN 2020). The CKD-EPI equation should not be used for patients with unstable renal function and has not been validated in children and those over 70. Current interpretive data was last reviewed 2021. Blood 02/05/2025 9:17 AM CDT 02/05/2025 9:25 AM CDT us Froilan Wise MD LAB BLOOD ORDERABLES Final R esult JJ MCCARTH[facility] ([place]) 1 [facility] Department [place] [address] * Differential, auto (02/05/2025 9:17 AM CDT) Neutrophil abs 3.33 1.50 - 6.50 K/cumm Imm gran abs 0.02 0.00 - 0.10 K/cumm [facility] ([place]) Lymphocyte abs 2.62 0.80 - 3.30 K/cumm [facility] ([place]) Monocyte abs 0.55 0.20 - 0.80 K/cumm [facility] ([place]) Eosinophil abs 0.36 0.00 - 0.50 K/cumm [facility] ([place]) Basophil abs 0.03 0.00 - 0.10 K/cumm [facility] ([place]) Neutrophil pct 48.2 % [facility] ([place]) Comment: Interpretive Data Percent cell count reference ranges are not reported, since discordance with absolute values may lead to misinterpretation of CBC data. Current Interpretive Data was last revised on 2017. Imm gran pct 0.3 % [facility] ([place]) Comment: Interpretive Data Percent cell count reference ranges are not reported, since discordance with absolute values may lead to misinterpretation of CBC data. Current Interpretive Data was last revised on 2017. Lymphocyte pct 37.9 % [facility] ([place]) Comment: Interpretive Data Percent cell count reference ranges are not reported, since discordance with absolute values may lead to misinterpretation of CBC data. Current Interpretive Data was last revised on 2017. Monocyte pct 8.0 % [facility] ([place]) Comment: Interpretive Data Percent cell count reference ranges are not reported, since discordance with absolute values may lead to misinterpretation of CBC data. Current Interpretive Data was last revised on 2017. Eosinophil pct 5.2 % [facility] ([place]) Comment: Interpretive Data Percent cell count reference ranges are not reported, since discordance with absolute values may lead to misinterpretation of CBC data. Current Interpretive Data was last revised on 2017. Basophil pct 0.4 % [facility] ([place]) Comment: Interpretive Data Percent cell count reference ranges are not reported, since discordance with absolute values may lead to misinterpretation of CBC data. Current Interpretive Data was last revised on 2017. Blood 02/05/2025 9:17 AM CDT 02/05/2025 9:25 AM CDT Froilan Wise MD LAB BLOOD ORDERABLES Final R esult [facility] ([place]) 1 [facility] Department [place] [address] * (ABNORMAL) CBC with auto differential (02/05/2025 9:17 AM CDT) WBC 6.91 3.80 - 9.90 K/cumm Hgb 13.5 13.0 - 17.5 g/dL [facility] ([place]) Hct 42.3 38.9 - 50.3 % [facility] ([place]) Plt 172 150 - 400 K/cumm [facility] ([place]) MPV 11.2 9.1 - 12.3 fL [facility] ([place]) RBC 4.41 4.30 - 5.80 M/cumm [facility] ([place]) MCV 95.9 81.3 - 96.4 fL [facility] ([place]) MCH 30.6 27.1 - 33.3 pg [facility] ([place]) MCHC 31.9(L) 32.3 - 35.7 g/dL [facility] ([place]) RDW CV 13.0 11.1 - 14.9 % [facility] ([place]) RDW SD 46.4 35.7 - 48.1 fL [facility] ([place]) NRBC abs 0.00 0.00 - 0.01 K/cumm [facility] Blood 02/05/2025 9:17 AM CDT 02/05/2025 9:25 AM CDT us Froilan Wise MD LAB BLOOD ORDERABLES Final R esult JJ [place]) 1 [facility] [employer] [address] * aPTT (02/05/2025 9:17 AM CDT) aPTT 30 26 - 38 sec HOLLYBETSY MCCARTH[facility] ([place]) Comment: Interpretive Data Heparin therapeutic range: 66.0 - 100.0 seconds. Range based on correlation with therapeutic heparin activity range of 0.3 - 0.7 Units/mL. Current interpretive data was last revised on 2023. Blood 02/05/2025 9:17 AM CDT 02/05/2025 9:25 AM CDT Froilan Wise MD LAB BLOOD ORDERABLES Final R esult Performing Organization Address [facility]/ZIP Co de Phone Number JJ MCCARTHY ([place]) 1 [facility] [employer] [place] [address] * Protime-INR (02/05/2025 9:17 AM CDT) PT 10.3 10.2 - 13.5 sec HOLLYBETSY MCCARTH[facility] ([place]) INR 0.91 0.90 - 1.20 JJ [facility] ([place]) Comment: Interpretive data Oral anticoagulant therapeutic ranges: Venous thromboembolism prophylaxis or treatment: 2.0-3.0 CARDIOLOGY Standard range: 2.0-3.0 High-intensity range: 2.5-3.5 Refer to indication-specific guidelines for appropriate target ranges for prosthetic heart valve replacement. Current interpretive data was last revised on 2019. Blood 02/05/2025 9:17 AM CDT 02/05/2025 9:25 AM CDT Narrative JJ [facility] ([place]) - 02/05/2025 9:40 AM CDT Repeat AM day of surgery if on coumadin Froilan Wise MD LAB BLOOD ORDERABLES Final R esult JJ MCC[facility] ([place]) 1 [facility] [employer] [place] [address] * (ABNORMAL) Hemoglobin A1c (02/05/2025 9:17 AM CDT) Hgb A1C 6.7(H) 4.0 - 5.6 % [facility] ([place]) Estimated Average Glucose 146 mg/dL [facility] ([place]) Comment: The ADA recommends reporting an estimated Average Glucose (eAG) with all Hemoglobin A1c results using the equation derived from a study of 507 normal and diabetic adults. Minority populations were underrepresented and children were not included. (Diabetes Care 31:6670-4657, 2008). The eAG is not equivalent to a fasting glucose. Testing performed by: [facility], [facility], [place], [address] Blood 02/05/2025 9:17 AM CDT 02/05/2025 9:25 AM CDT us Froilan Wise MD LAB BLOOD ORDERABLES Final R esult [facility] ([place]) 1 [facility] Department [place] [address] * Comprehensive metabolic panel (02/05/2025 9:17 AM CDT) [facility] Sodium 138 135 - 145 mmol/L [facility] ([place]) Potassium, pl 4.7 3.3 - 4.9 mmol/L [facility] ([place]) Chloride 106 97 - 110 mmol/L [facility] ([place]) CO2 24 22 - 32 mmol/L [facility] ([place]) Anion gap 8 2 - 15 mmol/L [facility] ([place]) BUN 19 6 - 25 mg/dL [facility] ([place]) Creatinine 1.08 0.80 - 1.30 mg/dL [facility] ([place]) Glucose 156 70 - 199 mg/dL [facility] ([place]) Comment: Interpretive Data Fasting glucose >/= 126 mg/dl is diagnostic for diabetes. Fasting is defined as no caloric intake for at least 8 hours. Fasting glucose between 100 mg/dl to 125 mg/dl is diagnostic of prediabetes. In a patient with classic symptoms of hyperglycemia or hyperglycemic crisis, a random glucose >/= 200 mg/dl is diagnostic for diabetes. In the absence of unequivocal hyperglycemia, results should be confirmed by repeat testing. The classification and Diagnosis of Diabetes Diabetes Care 2021; 46: S19-S40. Current interpretive data was last revised 2022. Calcium 9.0 8.5 - 10.3 mg/dL [facility] ([place]) Bilirubin, total 0.2 0.1 - 1.2 mg/dL [facility] ([place]) Protein, pl 6.8 6.5 - 8.5 g/dL [facility] ([place]) Albumin 4.0 3.5 - 5.0 g/dL [facility] ([place]) Alk phos 98 40 - 130 Units/L [facility] ([place]) ALT 10 7 - 55 Units/L [facility] ([place]) AST 17 10 - 50 Units/L [facility] ([place]) Blood 02/05/2025 9:17 AM CDT 02/05/2025 9:25 AM CDT us Froilan Wise MD LAB BLOOD ORDERABLES Final R esult [facility] ([place]) 1 [facility] [place] [address] * (ABNORMAL) Plasma lipid panel (11/13/2012 9:14 AM CDT) Cholesterol 102(L) 140 - 199 mg/dl HISTORICAL RESULTS Triglycerides 110 20 - 150 mg/dl HISTORICAL RESULTS HDL 32(L) 40 - 60 mg/dl HISTORICAL RESULTS LDL 48(L) 65 - 100 mg/dl HISTORICAL RESULTS Plasma 11/13/2012 9:14 AM CDT Cristain Javier MD LAB BLOOD ORDERABLES Final Res ult HISTORICAL RESULTS from Last 3 Months or Most Recently Relevant to Health Maintenance Additional Health Concerns Active Problems Noted Date Diagnosed Date Autogenerated Problem 02/15/2025 Insurance [employer] Member Subscriber Plan / Payer (Ef fective 2014-Present) Name:Brigid Quintero Jr. Relation to Subscriber:Self Name:Brigid Quintero Jr. Payer ID:[id number] Group ID:Not on file Type:COMMERCIAL Address: [address] [employer] Member Subscriber Plan / Payer (Ef fective 2014-Present) Name:Brigid Quintero Jr. Relation to Subscriber:Self Name:Brigid Quintero Jr. Payer ID:[id number] Group ID:Not on file Type:COMMERCIAL Address: [facility] [address] Advance Directives For more information, please contact: [phone] * Full Code (Latest Code Status on File) Date Activated Date Inactivated Comments 02/14/2025 3:44 PM 02/15/2025 4:20 PM Care Teams Hot Dog Vendor Relationship Specialty Start Date End Date Bhanu Gusman MD [facility] [place] [address] PCP - General Family Medicine 01/31/25 Tripp Hernandez NP [address] [place] [address] DR GANDHI [address] [place] [id number] Nurse Practitioner Orthopedic Surgery 02/15/25
[2025-03-14 12:20] LABS: Hematocrit 38.0 % (42.0-52.0); Hemoglobin 11.6 g/dL (14.0-18.0); Immature Granulocyte Percent A 0.6 % (0-0.5); Lymphocytes Absolute Auto 1.74 K/mm3 (0.9-3.2); Mean Corpuscular HGB Conc 30.5 g/dl (32-36); Mean Corpuscular Hemoglobin 28.8 pg (26-34); Mean Corpuscular Volume 94.3 fl (80-100); Nucleated Red Blood Cells Absolute Auto 0.000 K/mm3 (0.0-0.012); Nucleated Red Blood Cells Perc 0.0 % (0.0-0.2); Platelet Count Result 330 k/mm3 (150-375); Red Blood Count 4.03 M/mm3 (4.6-6.20); White Blood Count 8.4 K/mm3 (4.5-10.0)
[2025-03-14 12:57] LABS: CRP 2.2 mg/dL (<1.0)
== END 2025-03-14 11:44 | disposition home or self-care (01) ==
PROVIDERS: PCP Family Medicine; Visit Provider Allergy & Immunology
DX: T78.2XXA Anaphylactic shock, unspecified, initial encounter (principal)
CPT/HCPCS: 36415; 82785; 83520; 85025; 86140